=== PATIENT | female | born 1955 | race Caucasian/White ===

== ENCOUNTER 2022-03-11 08:55 | Outpatient (CLI) | payer MEDICARE, BC, SELFPAY | END 2022-03-11 08:56 | disposition home or self-care (01) | PROVIDERS: PCP Surgery; Visit Provider Nurse Practitioner Family | DX: I87.312 Chronic venous hypertension (idiopathic) with ulcer of left lower extremity (principal); I89.0 Lymphedema, not elsewhere classified; L97.322 Non-pressure chronic ulcer of left ankle with fat layer exposed | CPT/HCPCS: 11042; 99212 ==

== ENCOUNTER 2022-03-18 15:00 | Outpatient (CLI) | payer MEDICARE, BC, SELFPAY | END 2022-03-18 15:01 | disposition home or self-care (01) | LOC: WOUND 15:02 | PROVIDERS: PCP Surgery; Visit Provider Nurse Practitioner Family | DX: I87.312 Chronic venous hypertension (idiopathic) with ulcer of left lower extremity (principal); I89.0 Lymphedema, not elsewhere classified; L97.322 Non-pressure chronic ulcer of left ankle with fat layer exposed | CPT/HCPCS: 11042 ==

== ENCOUNTER 2022-03-25 14:59 | Outpatient (CLI) | payer MEDICARE, BC, SELFPAY | END 2022-03-25 15:00 | disposition home or self-care (01) | LOC: WOUND 14:59 | PROVIDERS: PCP Surgery; Visit Provider Nurse Practitioner Family | DX: I87.312 Chronic venous hypertension (idiopathic) with ulcer of left lower extremity (principal); I89.0 Lymphedema, not elsewhere classified; L97.322 Non-pressure chronic ulcer of left ankle with fat layer exposed | CPT/HCPCS: 97597; 97598 ==

== ENCOUNTER 2022-04-08 10:30 | Outpatient (CLI) | payer MEDICARE, BC, SELFPAY | END 2022-04-08 10:31 | disposition home or self-care (01) | LOC: WOUND 10:30 | PROVIDERS: PCP Surgery; Visit Provider Nurse Practitioner Family | DX: I87.312 Chronic venous hypertension (idiopathic) with ulcer of left lower extremity (principal); L97.322 Non-pressure chronic ulcer of left ankle with fat layer exposed | CPT/HCPCS: 97597 ==

== ENCOUNTER 2022-04-26 15:15 | Outpatient (CLI) | payer MEDICARE, BC, SELFPAY | END 2022-04-26 15:16 | disposition home or self-care (01) | LOC: WOUND 15:15 | PROVIDERS: PCP Surgery; Visit Provider Nurse Practitioner Family | DX: I87.312 Chronic venous hypertension (idiopathic) with ulcer of left lower extremity (principal); L97.322 Non-pressure chronic ulcer of left ankle with fat layer exposed; S91.301A Unspecified open wound, right foot, initial encounter | CPT/HCPCS: 99213 ==

== ENCOUNTER 2022-05-12 09:00 | Outpatient (CLI) | payer MEDICARE, BC, SELFPAY | END 2022-05-12 09:01 | disposition home or self-care (01) | LOC: WOUND 08-31 14:36 | PROVIDERS: PCP Surgery; Visit Provider Surgery | DX: I87.312 Chronic venous hypertension (idiopathic) with ulcer of left lower extremity (principal); L97.329 Non-pressure chronic ulcer of left ankle with unspecified severity | CPT/HCPCS: 99212 ==

== ENCOUNTER 2022-12-01 15:16 | Emergency (ER) | payer MEDICARE, BC, SELFPAY ==
[2022-12-01 15:23] VITALS: BP 170/70; PULSE 89; RESP 22; TEMP 36.6; O2SAT 95; BMI 58.2
--- NOTE | 2022-12-01 15:26 | CRLHL7_ITS ---
For Patients: As a result of the Cures Act, medical imaging exams and procedure reports are released immediately into your electronic medical record. You may view this report before your referring provider. If you have questions, please contact your health care provider. INDICATION: Pain. COMPARISON: None. TECHNIQUE: Two views of the right knee. FINDINGS: A small knee joint effusion is present. There is moderate osteoarthritis of the tibial femoral and patellofemoral joints. Bone density is within normal limits. No fracture or osteonecrosis is identified. IMPRESSION: Right knee osteoarthritis. Dictated by Stanton Bajwa MD @ 12/01/2022 4:21:16 PM (Electronically Signed)
--- NOTE | 2022-12-01 15:29 | ED_ITS ---
HPI - General Adult General Chief complaint: Extremity Pain/Injury, Lower Stated complaint: R Knee pain Time Seen by Provider: 12/01/22 15:18 History of Present Illness HPI narrative: Patient is very pleasant 59 year white female who has got right knee pain for several days it has been slightly worsening. Within the last couple of weeks she got a cortisone shot in both knees. She notes she has ?[id number] and ?arthritis in the knees bilaterally. She has had a history of knee effusion in the past and knee swelling. She is significantly elevated in BMI and has significant lymphedema in her legs. She has not had any chills fever, she has had no redness or warmth of the knee. She has had no history of gout or pseudogout. Related Data Home Medications Medication Instructions Recorded Confirmed amitriptyline 25 mg tablet 25 mg PO QPM 12/01/22 12/01/22 apixaban 5 mg tablet (Eliquis) 5 mg PO BID 12/01/22 12/01/22 cetirizine 10 mg tablet 10 mg PO DAILY 12/01/22 12/01/22 chlorthalidone 25 mg tablet 25 mg PO QAM 12/01/22 12/01/22 clobetasol 0.05 % scalp solution topical BID 12/01/22 flecainide 50 mg tablet mg PO 12/01/22 fluconazole 150 mg tablet mg PO 12/01/22 losartan 100 mg tablet 100 mg PO DAILY 12/01/22 12/01/22 metoprolol succinate 25 mg 25 mg PO DAILY 12/01/22 12/01/22 tablet,extended release 24 hr nystatin 100,000 unit/gram topical topical BID 12/01/22 ointment nystatin 100,000 unit/gram topical topical BID PRN 12/01/22 powder omeprazole 40 mg capsule,delayed 40 mg PO DAILY 12/01/22 12/01/22 release rosuvastatin 5 mg tablet 5 mg PO QPM 12/01/22 12/01/22 tolterodine 4 mg capsule,extended 4 mg PO DAILY 12/01/22 12/01/22 release 24 hr torsemide 20 mg tablet mg PO 12/01/22 Previous Rx's Medication Instructions Recorded cephalexin 500 mg capsule 500 mg PO QID #20 caps 12/01/22 hydrocodone 5 mg-acetaminophen 325 1 tab PO Q8H PRN pain #10 tabs 12/01/22 mg tablet Allergies Allergy/AdvReac Type Severity Reaction Status Date / Time Iodinated Contrast Media Allergy Mild Burning Verified 12/01/22 15:30 Sulfa (Sulfonamide Allergy Mild Hives Verified 12/01/22 15:30 Antibiotics) azithromycin AdvReac Mild Nausea Verified 12/01/22 15:30 Review of Systems Status of ROS: Reports: 6 or more systems reviewed and unremarkable except as noted in History and below PFSH PFSH Medical History (Updated 12/01/22 @ 16:36 by Tiara Ji ~ [facility] A-fib ?I48.91 - Unspecified atrial fibrillation (ICD-10) Cellulitis of right knee ?L03.115 - Cellulitis of right lower limb (ICD-10) Obesity ?E66.9 - Obesity, unspecified (ICD-10) Osteoarthritis of patellofemoral joints of both knees ?M17.0 - Bilateral primary osteoarthritis of knee (ICD-10) Surgical History (Updated 12/01/22 @ 16:36 by Tiara Ji ~ [facility]) History of appendectomy ?Z90.49 - Acquired absence of other specified parts of digestive tract (ICD- 10) History of cholecystectomy ?Z90.49 - Acquired absence of other specified parts of digestive tract (ICD- 10) History of incision and drainage (02/06/20) ?Z98.890 - Other specified postprocedural states (ICD-10) Family History (Updated 12/01/22 @ 16:34 by Tiara Ji ~ [facility]) Brother Alcohol dependence Heart disease COPD (chronic obstructive pulmonary disease) Mother Diabetes Social History Smoking Status: Former smoker Do you use any of these nicotine containing products: None Second hand tobacco smoke exposure: No How often do you have a drink containing alcohol: 2-3 times a week AUDIT-C Alcohol total score: 3 Non-prescribed substance use: denies use Exam Narrative: Exam Narrative: Objective: The patient is able to take a few steps with her leg and she uses a cane, she seems to have good balance Her vital signs show slightly elevated blood pressure she is afebrile Lower extremity on the right shows a knee effusion that is mild no tenseness to it no warmth erythema the knee range of motion is fairly full distal CMS intact she has no medial or lateral joint line tenderness. Const: Vital Signs, click to edit/add: Vital Signs - 24 hr 12/01/22 15:23 Temperature 97.8 F Pulse Rate [Pulse Oximeter] 89 Respiratory Rate 22 Blood Pressure [Ri ght Forearm] 170/70 H Pulse Oximetry 95 Oxygen Delivery Me thod Room Air Course Vital Signs Vital signs: Initial Vital Signs Temperature 97.8 F 12/01/22 15:23 Temperature Source Temporal Artery Scan 12/01/22 15:23 Pulse Rate 89 12/01/22 15:23 Respiratory Rate 22 12/01/22 15:23 Blood Pressure 170/70 H 12/01/22 15:23 Blood Pressure Mean 103 12/01/22 15:23 Blood Pressure Position Supine 12/01/22 15:23 Pulse Oximetry 95 12/01/22 15:23 Oxygen Delivery Method Room Air 12/01/22 15:23 Vital Signs Temperature 97.8 F 12/01/22 15:23 Pulse Rate 89 12/01/22 15:23 Respiratory Rate 22 12/01/22 15:23 Blood Pressure 170/70 H 12/01/22 15:23 Pulse Oximetry 95 12/01/22 15:23 Oxygen Delivery Method Room Air 12/01/22 15:23 Temperature 97.8 F 12/01/22 15:23 Pulse Rate 89 12/01/22 15:23 Respiratory Rate 22 12/01/22 15:23 Blood Pressure 170/70 H 12/01/22 15:23 Pulse Oximetry 95 12/01/22 15:23 Oxygen Delivery Method Room Air 12/01/22 15:23 Medical Decision Making MDM Narrative Medical decision making narrative: The patient is a 59 year white female morbidly obese patient with chronic lower extremity stasis and edema changes. She has had significant degenerative joint disease in the knees bilaterally, had cortisone recently. She has had increasing pain over the last few days. She has also had history of a blood clot and she is on Eliquis. She certainly could have a mild effusion in her knee or hemarthrosis. At this point does not appear tense. And I think that her risk for infection would be very high with manipulation or injection. I think be prudent to try a knee immobilizer limited weight-bearing, he hot pack, and pain medication if her lab studies look reassuring. We could also have her follow up with Orthopedics the next 24-48 hours. Addendum: Patient will have an appointment Orthopedics tomorrow. Light activity, icing the knee, recommend [place] as needed for pain or discomfort sparingly 5 mg/325[place] [id number] [place] stepper limited normal platelet count normal her ER profile looks largely unremarkable and her CRP is normal at 1. She certainly could have a small hemarthrosis I think we tried to put on a knee immobilizer but really would not fit her, I think just elevation and icing would be appropriate at this time and follow-up with orthopedics thanks Addendum: The patient also notified Lily our nurse working with the patient that she had some redness on her left ankle, will review nests looks like a cellulitic change, the patient will be placed on Keflex. Will have orthopedic follow-up tomorrow as scheduled. Lab Data Labs: Lab Results 12/01/22 Range/Units 15:54 WBC 11.92 H (4.50-11.00) K/uL RBC 3.53 L (4.00-5.20) m/uL Hgb 10.8 L (12.0-16.0) gm/dL Hct 33.6 (33.0-51.0) % MCV 95 (80-100) fL MCH 31 (26-34) pg MCHC 32 (32-36) gm/dL RDW Coeff of Amy 13.0 (11.5-15.5) % Plt Count 290 (140-440) K/uL Neut % (Auto) 58.8 (42.0-72.0) % Lymph % (Auto) 30.6 (20-44) % [place] % (Auto) 8.2 (0.0-11.0) % Eos % (Auto) 1.3 (0.0-7.0) % Baso % (Auto) 0.3 (0.0-3.0) % Neut # (Auto) 7.00 (1.7-7.0) K/uL Lymph # (Auto) 3.60 H (0.90-2.90) K/uL [place] # (Auto) 1.00 H (0.00-0.90) K/UL Eos # (Auto) 0.20 (0.00-0.50) K/uL Baso # (Auto) 0.00 (0.00-0.30) K/uL Sodium 134 L (135-149) mmol/L Potassium 4.1 (3.6-5.1) mmol/L Chloride 101 (96-114) mmol/L Carbon Dioxide 25 (20-32) mmol/L BUN 19 (7-30) mg/dL Creatinine 0.8 (0.5-1.5) mg/dL Estimated Creat Clear 48.45 Estimated GFR 80 ml/min Glucose 121 H (60-115) mg/dL Calcium 9.0 (8.4-10.6) mg/dL C-Reactive Protein 1.0 (0.5-1.0) mg/dL Discharge Plan Discharge Clinical Impression: Acute pain of right knee, Degenerative joint disease of knee, right Additional Instructions: Follow up appointment is scheduled at the [facility] on 12/02 with a 5:10pm arrival time. If you have any questions or need to reschedule, please call [phone]. [facility] [address] [place] [id number] Light activity limited weight-bearing, ice to the knee, [place] as needed for pain sparingly. Ortho follow-up tomorrow schedule Prescriptions: New hydrocodone-acetaminophen 5-325 mg tablet 1 tab PO Q8H PRN (Reason: pain) Qty: 10 0RF cephalexin 500 mg capsule 500 mg PO QID Qty: 20 0RF No Action torsemide 20 mg tablet PO cetirizine 10 mg tablet 10 mg PO DAILY nystatin 100,000 unit/gram ointment topical BID fluconazole 150 mg tablet PO tolterodine 4 mg capsule,extended release 24hr 4 mg PO DAILY chlorthalidone 25 mg tablet 25 mg PO QAM omeprazole 40 mg capsule,delayed release(DR/EC) 40 mg PO DAILY amitriptyline 25 mg tablet 25 mg PO QPM flecainide 50 mg tablet PO metoprolol succinate 25 mg tablet extended release 24 hr 25 mg PO DAILY nystatin 100,000 unit/gram powder topical BID PRN clobetasol 0.05 % solution topical BID losartan 100 mg tablet 100 mg PO DAILY rosuvastatin 5 mg tablet 5 mg PO QPM Eliquis 5 mg tablet 5 mg PO BID Follow Up/Referrals: Bart Lara MD [Primary Care Provider] -
[2022-12-01] MEDS: MORPHINE 10 MG/ML inj 7.5 MG IM (15:53)
[2022-12-01 16:12] LABS: Basophils Percent Auto 0.3 % (0.0-3.0); Eosinophils Percent Auto 1.3 % (0.0-7.0); Hematocrit 33.6 % (33.0-51.0); Hemoglobin* 10.8 gm/dL (12.0-16.0); Immature Granulocytes Pct Auto 0.8 %; Lymphocytes Percent Auto 30.6 % (20-44); Mean Corpuscular HGB Conc 32 gm/dL (32-36); Mean Corpuscular Hemoglobin 31 pg (26-34); Mean Corpuscular Volume 95 fL (80-100); Monocytes Percent Auto 8.2 % (0.0-11.0); Neutrophils Percent Auto 58.8 % (42.0-72.0); Platelet Count* 290 K/uL (140-440); Red Blood Count 3.53 m/uL (4.00-5.20); White Blood Count* 11.92 K/uL (4.50-11.00)
[2022-12-01 16:18] LABS: Slide Review Reflex No
[2022-12-01 16:23] LABS: Chloride* 101 mmol/L (96-114)
[2022-12-01 16:24] LABS: Potassium* 4.1 mmol/L (3.6-5.1); Sodium* 134 mmol/L (135-149)
[2022-12-01 16:26] LABS: Creatinine* 0.8 mg/dL (0.5-1.5); Est. Creatinine Clearance* 48.45; Estimated Glomerular Filt Rate 80 ml/min
[2022-12-01 16:27] LABS: Blood Urea Nitrogen* 19 mg/dL (7-30); Carbon Dioxide* 25 mmol/L (20-32); Glucose* 121 mg/dL (60-115)
--- NOTE | 2022-12-01 18:19 | ED.NURSE ---
Patient mentions reddened, itchy area on posterior left calk. Area examined and MD notified of possible cellulitis.
--- NOTE | 2022-12-01 18:32 | ED.NURSE ---
Unable to apply knee immobilizer due to patient habitus and limited stock of immobilizers.
== END 2022-12-01 18:25 | disposition home or self-care (01) ==
LOC: ED 16:43
PROVIDERS: Emergency Provider Family Medicine; PCP Surgery
DX: M17.11 Unilateral primary osteoarthritis, right knee (principal)
CPT/HCPCS: 36415; 73560; 80048; 85025; 86140; 96372; 99283; 99284; J2270

== ENCOUNTER 2023-04-13 11:14 | Outpatient (RCR) | payer MEDICARE, BC, SELFPAY ==
--- NOTE | 2023-04-18 15:45 | OT.HSE ---
OT Home Safety Eval OT Home Safety Eval Start: 04/13/23 20:03 Freq: Status: Active Protocol: Document 04/13/23 20:04 SMW (Rec: 04/13/23 20:05 SMW Laptop) E-signed By Carline Martins OT OT Outpatient Evaluation Details Type Type Eval Complexity Low Insurance Information Insurance Information Insurance Information Medicare B OT Home Safety History/Precautions Medical/Functional History Medical History Reviewed Yes Prior Level of Function/Mobility Patient uses 4WW for mobility both inside and in community. Will utilize w/c if longer distances. Able to complete ADLs independently. Spouse assists with IADLS. Current Condition Treatment Diagnosis home safety evaluation pre TKA . Social History Type of Dwelling Rambler Home Number of Floors (Floors) 1 Number of Stairs to Enter (Stairs) 4 Lives With: Spouse Physical Barriers in Home Environment Level, No Step,Railing Ascend Right,Railing Ascend Left Employment Status Retired Hobbies quilting Oriented Patient Orientation Person,Place,Time,Situation Upper Extremity Function Upper Extremity Function WNL OT Home Safety Evaluation Entrance Garage Entrance Description Railing Ascend Right,Railing Ascend Left Foyer Entrance Hard Floor Entrance Comments very small steps. Bathroom Main Level Toilet Accessibility High Rise Toilet Level of Assist To/From Toilet Independent Level of Assist For Clothing Management Independent Level of Assist For Pericare Independent Tub/Shower Accessibility Shower Only,Sliding Glass Doors,Front Vertical Grab Bar, Side Wall Horizontal Bar Tub Transfer Approach Step Into w/Knee Flexion Level of Assist To/From Tub/Shower Independent Sink Accessible Yes Bathroom Comments Recommend patient's spouse remove shower doors and put up tension natalio with curtain. Bedroom Bedroom Accessibility Hard Floor,Double Bed Bedroom Comments No issues getting in and out of bed Services Used/Recommended Services Used Comments none Recommendations Specifications The patient was seen for a home safety assessment prior to her upcoming total knee replacement. The patient lives with her spouse in a rambler style home. He is a willing and able caregiver. The home is somewhat cluttered but easily to navigate. The floors are all hardwoods. The patient uses a 4WW and is able to navigate to all necessary rooms. The patient had a particular concern with her bathroom/shower. Walk in shower has doors, 4 inch lip and grab bars effectively placed for safety. Patient was able to access shower independently. For more room, recommend the patient's spouse remove shower doors and put up tension natalio with curtain. The patient currently moving well with her 4WW. Anticipate that she will do well post op. She appears motivated and eager to regain more mobility and less pain. Treatment Minutes Untimed Treatment Minutes 10 Timed Treatment Minutes 35 Total Timed & Untimed Treatment Minutes 45 I Certify That: I Certify That: Therapy Services Provided, Therapy Plan Established, Therapy Plan Reviewed Home Safety Eval Billing Units Billing Units Self Care/Home Management 2
== END 2023-08-11 23:59 | disposition home or self-care (01) ==
PROVIDERS: PCP Surgery; Visit Provider Orthopaedic Surgery
DX: M17.11 Unilateral primary osteoarthritis, right knee (principal); Z51.89 Encounter for other specified aftercare
CPT/HCPCS: 97165; 97535

== ENCOUNTER 2023-05-31 08:54 | Day surgery (SDC) | payer MEDICARE, BC, SELFPAY ==
[2023-05-31] VITALS (27 sets, daily range): BP systolic 94–165; BP diastolic 6–76; PULSE 60–70; RESP 16–20; TEMP 35.8–36.6; O2SAT 91–99; BMI 57.9
[2023-05-31] MEDS: ACETAMINOPHEN 500 MG TABLET 1000 MG PO ×2 (09:53→19:19)
[2023-05-31] MEDS: CELECOXIB 200 MG CAPSULE PO (09:53)
[2023-05-31] MEDS: OXYCODONE (CR) 10 MG TAB.ER.12H PO (09:53)
[2023-05-31] MEDS: LACTATED RINGERS 1000 ML 1,000 ML 100 ML IV (10:00)
[2023-05-31] MEDS: SODIUM CHLORIDE 0.9 % (FLUSH) 10 ML SYRINGE IVF (10:00)
[2023-05-31] MEDS: MIDAZOLAM HCL 1 MG/ML inj IVP (12:28)
[2023-05-31] MEDS: fentaNYL 100 MCG/2 ML inj IVP (12:28)
--- NOTE | 2023-05-31 12:49 | SUR.PREOP ---
TIME?OUT:?1228 PT/RN/MDA?VERIFICATION?OF?SURGICAL?SITE,?PROCEDURE,?AND?CONSENT OBTAINED?PRIOR?TO?INVASIVE?PROCEDURE.
--- NOTE | 2023-05-31 12:58 | W.PM.NB ---
Nerve Block Nerve Block Time Seen by Provider: 12:34 Date Seen: 05/31/23 Type of block requested by surgeon for post-operative analgesia: adductor canal Side: right Time out performed: Yes Verification of patient name: Yes Verification of date of : Yes Site marking: site marked Name of person performing procedure: Aureliano Continuous monitoring Was continuous monitoring of O2 sat, B/P, equipment monitor phototypesetting, recorded every 15 minutes?: Yes Procedure Checklist: sterile prep, needles and gloves Ultrasound guided. Images saved: Yes Medications given in 5ml increments after negative aspiration: Ropivicaine %: 0.5 mL: 20 Needle gauge: 20 Decadron (mg): 10 Precedex (mcg): 25 Patient tolerated procedure well: Yes Additional comments: Needle noted adjacent to nerve Block Charges Block Charge (with Pro Fee): Femoral Nerve Use of Ultrasound Machine for Block: Yes- US Guidance/pain block
--- NOTE | 2023-05-31 12:59 | W.PM.NB ---
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
--- NOTE | 2023-05-31 12:59 | W.ANESCHARGE ---
Anesthesia Charges Start Date/Time Anesthesia Start Date: 05/31/23 Anesthesia Start Time: 13:16 Stop Date/Time Anesthesia Stop Date: 05/31/23 Anesthesia Stop Time: 16:21
[2023-05-31] MEDS: CEFAZOLIN 2 GM INJ IVP (13:40)
--- NOTE | 2023-05-31 14:19 | SUR.OPER ---
LARGE DILLON, OSTEOTOME TRAY AND ATT FEM/STEM EXTRAS WERE CONFIRMED WITH STERILE PROCESSING AND WERE APPROVED TO USE DURING PROCEDURE.
--- NOTE | 2023-05-31 15:18 | CRLHL7_ITS ---
For Patients: As a result of the Century Cures Act, medical imaging exams and procedure reports are released immediately into your electronic medical record. You may view this report before your referring provider. If you have questions, please contact your health care provider. INDICATION: Follow up after knee arthroplasty. TECHNIQUE: Two portable postoperative images of the right knee. FINDINGS: Right knee arthroplasty. Patellar resurfacing. The components are adequately aligned and well seated. Air within the soft tissues and joint space related to the surgery. IMPRESSION: Right total knee arthroplasty. The components are adequately aligned and well seated. Dictated by Kenan Dickson MD @ 06/01/2023 11:26:47 AM (Electronically Signed)
--- NOTE | 2023-05-31 15:20 | P.ORPRC_ITS ---
Procedure Note Date of procedure: 05/31/23 Procedure: PREOPERATIVE DIAGNOSIS: Bilateral knee osteoarthritis POSTOPERATIVE DIAGNOSIS: Bilateral knee osteoarthritis NAME OF OPERATION: Right total knee arthroplasty, left knee steroid injection SURGEON: Bo Grubbs MD GROUNDS MAINTENANCE MANAGER: DAVID Mendoza ANESTHESIA: Spinal ESTIMATED BLOOD LOSS: 50 mL COMPLICATIONS: None SPECIMENS: None DRAINS: None PREOPERATIVE ANTIBIOTICS: Ancef 3 grams, antibiotic impregnated cement IMPLANTS: 1. J&J Attune revision CRS #6 posterior stabilized femur, with a 14 mm x 50 mm cemented stem 2. # 5 fixed-bearing revision CRS tibia for, with a 14 mm x 50 mm cemented stem 3. #6 posterior stabilized, 5 mm fixed-bearing polyethylene 4. 38 patella INDICATIONS: The patient is a 68-year-old with a longstanding history of severe, unrelenting right knee pain secondary to end-stage (grade IV) right knee osteoarthritis. Despite appropriate nonoperative management, including activity modification, anti-inflammatories, [id number] pain medication, bracing, physical therapy, and injections they continue to have pain and disability. Operative intervention was offered. The risks, benefits and expected outcomes were discussed in detail. These included but were not limited to: Infection, bleeding, injury to blood vessel or nerve, venous thromboembolism. All questions were answered to their satisfaction. Use of an mental health assistant was necessary throughout the case for patient positioning and safety, soft tissue retraction, and closure. A modifier 22 should be added to this case. The patient's weight of 158 kg with a BMI of 58 kg/meter squared and a 50 mm layer of adipose over the extensor mechanism made the dissection and exposure difficult. These factors more than doubled the time typically required to complete the case. PROCEDURE: Spinal anesthesia was administered. The patient was placed supine on the operating table. The mental health assistant made sure the patient was positioned appropriately. The lower extremity was prepped and draped in the usual sterile fashion. The limb was exsanguinated with the Caleb bandage. The pneumatic tourniquet was inflated to 300 mmHg. A standard anterior incision was made with the knee in flexion. Subcutaneous dissection was sharply taken through fascial layer #1. Full-thickness medial and lateral flaps were elevated. The mental health assistant retracted the soft tissues and protected them throughout the case. A standard medial parapatellar approach was made. The patella was everted. The infrapatellar fat pad was preserved. The menisci and cruciate ligaments were sharply d?brided. Marginal osteophytes were d?brided with the rongeur. The drill was used to penetrate the femoral canal. The canal was aspirated and irrigated with pulse lavage. The intramedullary femoral guide was placed for a 5-degree valgus cut, removing 10 mm off the distal femur. The saw was used to make the cut. Whitesides line and the trans epicondylar axis were marked. The femoral sizing guide was pinned onto the distal femur. Three degrees of exte rnal rotation nicely parallels the transepicondylar axis. Pins were placed for posterior referencing. The four-in-one cutting guide was pinned onto the distal femur. The anterior, posterior, and chamfer cuts were made. The mental health assistant protected the collateral ligaments. The trial femur was placed. The box cuts were made. The drill was used x2. The boxed trial was placed and was an excellent fit. Attention was then turned to the proximal tibia. The extramedullary tibial guide was placed for a neutral varus/valgus cut with 5 degrees of posterior slope, removing 2 mm based off the medial tibial surface. The mental health assistant protected the collateral ligaments and the neurovascular bundle. The saw was used to make the cut. Trial components were placed. The knee was nicely balanced in both flexion and extension. The trial components were removed. The tray was placed in appropriate rotation, parallel to our tibial cutting pins. It was pinned by the mental health assistant and the drill x2 was used. The stemmed tibial trial was placed. The punch was used. The tray was removed. The punch was used again. Attention was then turned to the patella. Cheesh-Na patellar thickness was 21.5 mm. The lobster claw resection guide was used with the 7.5 mm tristan. The saw was used to make the cut. Drill holes were made by the mental health assistant. The trial was placed and was an excellent fit. Cancellous surfaces were irrigated with pulse lavage and thoroughly dried by the mental health assistant. We cemented the tibial component, then the femoral component. We impacted the 5 mm polyethylene onto the tibial tray. The knee was brought into full extension. We then cemented the patellar component. Excessive cement was removed. The cement was allowed to harden. The knee was taken through a range of motion and was found to be nicely balanced in both flexion and extension. The patella tracks centrally. The mental health assistant did a three minute dilute Betadine solution soak. The mental health assistant irrigated the wound with 3 liters of normal saline via pulse lavage. The mental health assistant reapproximated the extensor mechanism with #1 Vicryl in an interrupted [id number] fashion. The mental health assistant then ran the extensor mechanism with a #1 PDO Stratafix. The mental health assistant closed the subcutaneous tissues with a 3-0 Stratafix and the skin with a running 3-0 Stratafix in a subcuticular fashion. Glue was used to seal the skin. The mental health assistant placed a dry dressing, DANIELA stocking, and Polar Care. The left knee was sterilely prepped and was injected with 4 mL 0.25% Marcaine without epinephrine, 40 mg Depo-Medrol. Sponge and needle counts were correct x2. The patient tolerated the procedure well. There were no apparent complications. They were carefully transferred to the hospital bed and taken to the postanesthesia care unit in satisfactory condition. PLAN: The patient will be mobilized with physical therapy. Aspirin will be used for DVT prophylaxis. They will be discharged to [home once medically appropriate.
[2023-05-31] MEDS: BUPIVACAINE 0.25% 30 ML 4 ML INJECTION (16:11)
[2023-05-31] MEDS: methylPREDNISolone acetate 80 MG/ML INJ 40 MG INTRA-ARTI (16:11)
--- NOTE | 2023-05-31 16:27 | W.ANESCHARGE ---
Anesthesia Charges Start Date/Time Anesthesia Start Date: 05/31/23 Anesthesia Start Time: 13:16 Stop Date/Time Anesthesia Stop Date: 05/31/23 Anesthesia Stop Time: 16:21
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
[2023-05-31] MEDS: HYDROmorphone 0.5 mg/0.5 ml inj IVP (19:38)
[2023-05-31] MEDS: SENNOSIDES 1 TAB TABLET 2 TAB PO (20:48)
[2023-05-31] MEDS: OXYCODONE 5 MG TABLET PO (20:48)
[2023-05-31] MEDS: ASPIRIN 81 MG TABLET EC PO (20:49)
[2023-05-31] MEDS: FLECAINIDE ACETATE 50 MG TABLET 75 MG PO (20:55)
--- NOTE | 2023-05-31 22:54 | PC.NURSE ---
Shift Note: Pt friendly and cooperative. Difficulty with pain control, she rates discomfort 5-6/10. PRN Dilaudid given IVP x2 and pt transitioned to PO Oxycodone. VS WNL and pt using CPAP at HS. Advanced to regular diet without difficulty. Surgical dressing to right knee C,D,&I with cryocuff in place. Up to BR with assist x2 with walker and GB. Pt stated she was very afraid to fall and needed encouragement to ambulate. She is steady on her feet. Plans to discharge home with her Scott tomorrow.
[2023-06-01] MEDS: ACETAMINOPHEN 500 MG TABLET 1000 MG PO ×2 (00:59→05:25)
[2023-06-01 03:10] VITALS: BP 137/87; PULSE 67; RESP 16; TEMP 36.6; O2SAT 97
[2023-06-01] MEDS: OXYCODONE 5 MG TABLET PO ×3 (03:25→09:01)
[2023-06-01] MEDS: MELATONIN 3 MG TABLET PO (03:26)
[2023-06-01 06:41] LABS: Basophils Percent Auto 0.1 % (0.0-3.0); Hematocrit 33.4 % (33.0-51.0); Hemoglobin* 10.6 gm/dL (12.0-16.0); Immature Granulocytes Pct Auto 0.3 %; Lymphocytes Percent Auto 18.7 % (20-44); Mean Corpuscular HGB Conc 32 gm/dL (32-36); Mean Corpuscular Hemoglobin 31 pg (26-34); Mean Corpuscular Volume 98 fL (80-100); Monocytes Percent Auto 5.8 % (0.0-11.0); Neutrophils Percent Auto 75.1 % (42.0-72.0); Platelet Count* 310 K/uL (140-440); RDW Coefficient of Variation % 12.8 % (11.5-15.5); White Blood Count* 14.35 K/uL (4.50-11.00)
[2023-06-01 06:49] LABS: Potassium* 4.1 mmol/L (3.6-5.1); Sodium* 136 mmol/L (135-149)
[2023-06-01 06:52] LABS: Blood Urea Nitrogen* 28 mg/dL (7-30); Creatinine* 1.1 mg/dL (0.5-1.5); Est. Creatinine Clearance* 43.43; Estimated Glomerular Filt Rate 54 ml/min
[2023-06-01 06:55] LABS: Slide Review Reflex No
[2023-06-01 07:10] LABS: INR 1.05 (0.91-1.10); Prothrombin Time 14.4 Seconds
--- NOTE | 2023-06-01 07:35 | PC.NURSE ---
Pt alert and oriented x3. Afebrile. Pt reports 8/10 pain in right knee, pain managed with scheduled and prn medications and cryo cuff. Pt?s right knee dressing is CDI. ?Pt denies?chest pain, and N/V. SOB is noted with exertion. Pt is SBA with walker and gait belt. Pt slept intermittently throughout night. ?
[2023-06-01 07:59] VITALS: BP 141/64; PULSE 64; RESP 16; TEMP 36.2; O2SAT 95
[2023-06-01] MEDS: CHLORTHALIDONE 25 MG TABLET PO (09:00)
[2023-06-01] MEDS: FLECAINIDE ACETATE 50 MG TABLET 75 MG PO (09:00)
[2023-06-01] MEDS: METOPROLOL SUCCINATE (XL) 25 MG TAB PO (09:00)
[2023-06-01] MEDS: APIXABAN 5 MG TABLET PO (09:00)
[2023-06-01] MEDS: SENNOSIDES 1 TAB TABLET 2 TAB PO (09:01)
[2023-06-01] MEDS: LOSARTAN POTASSIUM 50 MG TABLET 100 MG PO (09:01)
--- NOTE | 2023-06-01 09:04 | PM.ORPN ---
Subjective Subjective Time Seen by Provider: 07:15 Date Seen: 06/01/23 Principal diagnosis: Status post right knee replacement Interval history: The patient is comfortable in her hospital bed this morning. She has had pain postoperatively. She will discharge today to home with her if she meets discharge criteria. She drifts off to sleep when speaking with her this morning. She easily arouses and converses. She denies chest pain, shortness of breath , lightheadedness. Ortho Exam Narrative Exam Narrative: Alert and oriented x3. Patient is in no acute distress. Converses without labored breathing. Hearing is grossly intact. Ambulates with a Normal gait. Examination of the right knee shows the dressing is intact. No erythema or warmth or sign of infection. Bilateral calves are soft and nontender. Good quad strength 5/5. CMS is intact right lower extremity. Const Vital Signs, click to edit/add: Vital Signs - 24 hr 05/31/23 09:22 05/31/23 12:28 05/31/23 12:30 Temperature 97.9 F Pulse Rate 70 66 65 Pulse Rate [Left Pulse Oximeter] Respiratory Rate 16 16 16 Blood Pressure 165/66 H 115/46 L 122/52 L Blood Pressure [Right Arm] Pulse Oximetry 96 99 98 Oxygen Delivery Method Room Air Nasal Cannula Nasal Cannula Oxygen Flow Rate 2 2 05/31/23 12:35 05/31/23 12:40 05/31/23 12:45 Temperature Pulse Rate 64 64 63 Pulse Rate [Left Pulse Oximeter] Respiratory Rate 16 16 16 Blood Pressure 116/45 L 110/49 L 115/49 L Blood Pressure [Right Arm] Pulse Oximetry 98 98 97 Oxygen Delivery Method Nasal Cannula Nasal Cannula Nasal Cannula Oxygen Flow Rate 2 2 2 05/31/23 16:18 05/31/23 16:22 05/31/23 16:27 Temperature 97.8 F Pulse Rate 64 60 62 Pulse Rate [Left Pulse Oximeter] Respiratory Rate 18 18 18 Blood Pressure 144/69 H 144/6 H 138/76 Blood Pressure [Right Arm] Pulse Oximetry 96 94 96 Oxygen Delivery Method Room Air Room Air Room Air Oxygen Flow Rate 05/31/23 16:32 05/31/23 16:37 05/31/23 16:40 Temperature Pulse Rate 63 66 62 Pulse Rate [Left Pulse Oximeter] Respiratory Rate 16 18 18 Blood Pressure 137/75 146/68 H 140/72 H Blood Pressure [Right Arm] Pulse Oximetry 94 94 94 Oxygen Delivery Method Room Air Room Air Room Air Oxygen Flow Rate 05/31/23 16:45 05/31/23 16:47 05/31/23 17:00 Temperature 97.8 F 96.6 F L Pulse Rate 64 64 Pulse Rate [Left Pulse Oximeter] 61 Respiratory Rate 18 18 20 Blood Pressure 141/66 H 144/67 H Blood Pressure [Right Arm] 112/47 L Pulse Oximetry 93 93 93 Oxygen Delivery Method Room Air Room Air Room Air Oxygen Flow Rate 05/31/23 17:15 05/31/23 17:26 05/31/23 17:30 Temperature 97.4 F L 96.4 F L Pulse Rate 63 Pulse Rate [Left Pulse Oximeter] 64 64 Respiratory Rate 20 20 20 Blood Pressure Blood Pressure [Right Arm] 124/55 L 106/49 L 112/65 Pulse Oximetry 94 94 Oxygen Delivery Method Room Air Room Air Room Air Oxygen Flow Rate 05/31/23 17:45 05/31/23 18:00 05/31/23 18:30 Temperature 97 F L 96.8 F L Pulse Rate Pulse Rate [Left Pulse Oximeter] 63 62 68 Respiratory Rate 20 20 20 Blood Pressure Blood Pressure [Right Arm] 118/66 104/51 L 100/41 L Pulse Oximetry 93 94 93 Oxygen Delivery Method Room Air Room Air Room Air Oxygen Flow Rate 05/31/23 19:00 05/31/23 20:00 05/31/23 21:00 Temperature Pulse Rate Pulse Rate [Left Pulse Oximeter] 67 68 66 Respiratory Rate 20 20 20 Blood Pressure Blood Pressure [Right Arm] 94/74 118/59 L 118/59 L Pulse Oximetry 94 91 93 Oxygen Delivery Method Room Air Room Air Room Air Oxygen Flow Rate 05/31/23 22:00 05/31/23 23:00 05/31/23 23:40 Temperature 97.4 F L 97.9 F Pulse Rate Pulse Rate [Left Pulse Oximeter] 66 69 Respiratory Rate 20 18 Blood Pressure Blood Pressure [Right Arm] 121/58 L 133/60 Pulse Oximetry 91 94 95 Oxygen Delivery Method Room Air Room Air Oxygen Flow Rate 05/31/23 23:40 06/01/23 03:10 06/01/23 07:59 Temperature 97.8 F Pulse Rate Pulse Rate [Left Pulse Oximeter] 68 67 Respiratory Rate 16 16 Blood Pressure Blood Pressure [Right Arm] 137/87 Pulse Oximetry 97 95 Oxygen Delivery Method Room Air Oxygen Flow Rate 06/01/23 07:59 Temperature 97.2 F L Pulse Rate Pulse Rate [Left Pulse Oximeter] 64 Respiratory Rate 16 Blood Pressure Blood Pressure [Right Arm] 141/64 H Pulse Oximetry 95 Oxygen Delivery Method Room Air Oxygen Flow Rate Assessment and Plan Assessment and plan (1) Status post right knee replacement: Problem details: - 05/31/23Romie Status: Acute Assessment and Plan: Plan for discharge is today to home if they meet discharge criteria. DVT prophylaxis includes Eliquis, Yordan bandages on lower extremities x1 month may remove for 1 hr per day, frequent ambulation Remove dressing in 1 week. Observe wound and phone Orthopedics with any questions or concerns Return to clinic in 1 week for a wound check Return to clinic in 6 weeks with surgeon Minimize narcotic use. Wean off and discontinue soon as possible. Activities as tolerated. No strenuous activity. Outpatient physical therapy as scheduled. Ice and elevate the operative extremity. No restriction on ice. (2) CARLOS on CPAP: Problem details: - continue CPAP during stay Status: Acute
[2023-06-01] MEDS: AMOXICILLIN 250 MG CAPSULE 1000 MG PO (10:41)
[2023-06-01] MEDS: TOLTERODINE TARTRATE 2 MG CAP.ER.24H 4 MG PO (10:42)
== END 2023-06-01 11:08 | disposition home or self-care (01) ==
LOC: OR 08:55 → MEDSURG 08:58
PROVIDERS: PCP Surgery; Visit Provider Orthopaedic Surgery
PROC: (CPT 27447; principal; 2023-05-31 10:15)
PROC: (CPT 27447; 2023-05-31 10:15)
DX: M17.0 Bilateral primary osteoarthritis of knee (principal); G89.18 Other acute postprocedural pain; I48.91 Unspecified atrial fibrillation; Z79.01 Long term (current) use of anticoagulants; Z86.718 Personal history of other venous thrombosis and embolism; G47.33 Obstructive sleep apnea (adult) (pediatric); I10 Essential (primary) hypertension; K21.9 Gastro-esophageal reflux disease without esophagitis; E66.9 Obesity, unspecified
CPT/HCPCS: 27447; 20610; 01402; 36415; 64447; 64454; 73560; 76942; 82565; 84132; 84295; 84520; 85025; 85610; 97110; 97116; 97162; 97165; A9270; C1776; J0665; J0690; J1040; J1100; J1170; J2250; J2405; J2704; J2795; J3010; J7120

== ENCOUNTER 2023-06-25 15:00 | Observation (INO) | payer MEDICARE, BC, SELFPAY ==
[2023-06-25 15:09] VITALS: BP 103/53; PULSE 80; RESP 20; TEMP 36.3; O2SAT 94; BMI 49.9
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
--- NOTE | 2023-06-25 15:27 | CRLHL7_ITS ---
For Patients: As a result of the Cures Act, medical imaging exams and procedure reports are released immediately into your electronic medical record. You may view this report before your referring provider. If you have questions, please contact your health care provider. Indication: Knee pain, heard a pop, history of total knee arthroplasty Comparison: Two-view knee May 31, 2023 Technique: Standing AP, lateral, and sunrise views of the right knee were obtained Findings: There is no displaced fracture or dislocation. There is again seen total knee arthroplasty without evidence of hardware failure. There is interval development of severe prepatellar and suprapatellar soft tissue swelling. Resolution of previously seen subcutaneous emphysema. Impression: Status post knee arthroplasty without obvious hardware loosening or displaced fracture. Marked prepatellar and suprapatellar soft tissue swelling new from comparison. Dictated by Colby Diaz MD @ 06/25/2023 4:12:34 PM (Electronically Signed)
--- OUTSIDE RECORDS SUMMARY | 2023-06-25 15:59 | XMS_ITS | Continuity of Care Document ---
Author Name Unknown Organization [facility] Address [address] [address] [place] [address] Phone Care Team Providers Care Barrel Repairer Name Role Phone Cody Randle MD Unavailable Unavailable Procedures Procedure Date Ugi Endo; Dx W/wo Collec Specm 16 Advance Directives Directive Yes / No Effective Date File Name No Information Encounters Encounter Description Practice Location Reason(s) For Visit Diagnoses Date Provider Providers Copied on Encounter [facility] [place], [address] [address], [place], [place], [id number], [place] tel:[phone] [facility] No Information Jer Ross. [address] [facility], [facility] [address], [place], [place], [id number], [place]. tel:[phone] Referring Provider: Nguyễn Abbott MD L, [address] [place] [address], [place], [address]. tel:[phone] Family History Family Member Type Diagnosis Age At Onset No Information Payers Payer name Insurance type Covered democrat ID Authoriza tion(s) [employer] [place] BL [id number] Social History Type Description Quantity Date Captured Comments Sex Female Smoking Status No Information Chief Complaint And Reason For Visit No Information Reason For Referral Reason For Referral No Information History Of Present Illness Encounter Date Complaint History Of Prese nt Illness No Information Functional Status Date Functional Assessmen t No Information Instructions Date Instruction Additional Infor mation No Information Assessments Type Assessment Date No Information Patient Care Teams Name Effective Dates (start - stop) Status Members No Information
--- OUTSIDE RECORDS SUMMARY | 2023-06-25 15:59 | XMS_ITS | Continuity of Care Document ---
Author Name Unknown Organization [facility] Address [address] [address] [place] [address] Phone Care Team Providers Care Scaffold Setter Name Role Phone Cody Randle MD Unavailable Unavailable Procedures Procedure Date Ugi Endo; Dx W/wo Collec Specm 16 Advance Directives Directive Yes / No Effective Date File Name No Information Encounters Encounter Description Practice Location Reason(s) For Visit Diagnoses Date Provider Providers Copied on Encounter [facility] [place], [address] [address], [place], [place], [id number], [place] tel:[phone] [facility] No Information Jer Ross. [address] [facility], [facility] [address], [place], [place], [id number], [place]. tel:[phone] Referring Provider: Nguyễn Abbott MD L, [address] [place] [address], [place], [address]. tel:[phone] Family History Family Member Type Diagnosis Age At Onset No Information Payers Payer name Insurance type Covered republican ID Authoriza tion(s) [employer] [place] [id number] Social History Type Description Quantity Date Captured [...]
[2023-06-25] MEDS: OXYCODONE 5 MG TABLET 10 MG PO (16:00)
[2023-06-25 16:27] LABS: Lactate* 1.3 mmol/L (0.5-1.9)
[2023-06-25 16:33] LABS: Basophils Percent Auto 0.4 % (0.0-3.0); Hematocrit 35.4 % (33.0-51.0); Hemoglobin* 11.1 gm/dL (12.0-16.0); Lymphocytes Percent Auto 24.9 % (20-44); Mean Corpuscular HGB Conc 31 gm/dL (32-36); Mean Corpuscular Hemoglobin 30 pg (26-34); Mean Corpuscular Volume 97 fL (80-100); Monocytes Percent Auto 11.5 % (0.0-11.0); Neutrophils Percent Auto 61.2 % (42.0-72.0); Platelet Count* 363 K/uL (140-440); Red Blood Count 3.66 m/uL (4.00-5.20); White Blood Count* 12.45 K/uL (4.50-11.00)
--- OUTSIDE RECORDS SUMMARY | 2023-06-25 16:34 | XMS_ITS | Continuity of Care Document ---
Author Name Unknown Organization [facility] Address [address] [address] [place] [address] Phone Care Team Providers Care Shaping Machine Tender Name Role Phone Cody Randle MD Unavailable Unavailable Procedures Procedure Date Ugi Endo; Dx W/wo Collec Specm 16 Advance Directives Directive Yes / No Effective Date File Name No Information Encounters Encounter Description Practice Location Reason(s) For Visit Diagnoses Date Provider Providers Copied on Encounter [facility] [place], [address] [address], [place], [place], [id number], [place] tel:[phone] [facility] No Information Jer Ross. [address] [facility], [facility] [address], [place], [place], [id number], [place]. tel:[phone] Referring Provider: Nguyễn Abbott MD L, [address] [place] [address], [place], [address]. tel:[phone] Family History Family Member Type Diagnosis Age At Onset No Information Payers Payer name Insurance type Covered libertarian ID Authoriza tion(s) [employer] [place] BL [id number] Social History Type Description Quantity Date Captured [...]
[2023-06-25 16:35] LABS: Slide Review Reflex No
[2023-06-25 16:51] LABS: C Reactive Protein* 1.7 mg/dL (0.5-1.0)
[2023-06-25 18:12] VITALS: BP 137/59; PULSE 74; RESP 16; O2SAT 97
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
[2023-06-25 18:30] VITALS: BP 133/57; PULSE 72; RESP 20; O2SAT 95; BMI 57.1
--- OUTSIDE RECORDS SUMMARY | 2023-06-25 18:57 | XMS_ITS | Continuity of Care Document ---
Author Name Unknown Organization [facility] Address [address] [address] [place] [address] Phone Care Team Providers Care Core Inserter Name Role Phone Cody Randle MD Unavailable Unavailable Procedures Procedure Date Ugi Endo; Dx W/wo Collec Specm 16 Advance Directives Directive Yes / No Effective Date File Name No Information Encounters Encounter Description Practice Location Reason(s) For Visit Diagnoses Date Provider Providers Copied on Encounter [facility], [address] [address], [place], [place], [id number], [place] tel:[phone] [facility] No Information Jer Ross. [address] [facility], [facility] [address], [place], [place], [id number], [place]. tel:[phone] Referring Provider: Nguyễn Abbott MD L, [address] [place] [address], [place], [address]. tel:[phone] Family History Family Member Type Diagnosis Age At Onset No Information Payers Payer name Insurance type Covered green party ID Authoriza tion(s) [employer] [place] BL [id number] Social History Type Description Quantity Date Captured [...]
[2023-06-25] MEDS: ACETAMINOPHEN 500 MG TABLET 1000 MG PO (19:57)
[2023-06-25] MEDS: FLECAINIDE ACETATE 50 MG TABLET 75 MG PO (20:39)
[2023-06-25] MEDS: SENNOSIDES 1 TAB TABLET PO (20:40)
[2023-06-25] MEDS: SODIUM CHLORIDE 0.9 % (FLUSH) 10 ML SYRINGE 5 ML IVF (20:40)
[2023-06-25] MEDS: APIXABAN 5 MG TABLET PO (20:41)
[2023-06-25] MEDS: OXYCODONE 5 MG TABLET PO (21:59)
[2023-06-25] MEDS: ROSUVASTATIN CALCIUM 10 MG TABLET 5 MG PO (22:16)
--- NOTE | 2023-06-25 22:37 | PC.NURSE ---
Admit [id number]- Patient arrives to floor at approximately 1830. She is reluctant to move and needs a lot of encouragement- I don't want to eat or drink, because then I'll have to get up to use the bathroom. Ice applied to knee. PRN pain medications also administered- see eMAR. She did ambulate from bed to bathroom, moved fluidly and well. Assist of 1-2, walker, gait belt. She stated it went better than she anticipated. Strategies for movement were discussed with patient beforehand.
[2023-06-25 23:45] VITALS: BP 127/55; PULSE 67; RESP 20; TEMP 36.6; O2SAT 92
[2023-06-26 02:00] VITALS: BP 149/60; PULSE 66; RESP 16; TEMP 36.6; O2SAT 94
[2023-06-26] MEDS: OXYCODONE 5 MG TABLET PO ×4 (02:00→15:09)
[2023-06-26] MEDS: ACETAMINOPHEN 500 MG TABLET 1000 MG PO ×3 (02:00→15:09)
--- NOTE | 2023-06-26 06:39 | PC.NURSE ---
End of shift nursing note, care [id number]: Pt alert and oriented, very drowsy at start of shift. More alert during cares throughout shift. Vitals stable, on RA while awake, CPAP at NOC. Up SBA-Ax1 w/ walker and gaitbelt, up x2 to void. Pain 1-3/10 at rest but pt rates severe at 6-7/10 when sitting/standing/changing position, PRN Oxycodone x2 and Tylenol admin x1, effective to allow pt to sleep in between cares. Ice pack applied to R knee. Receiving IV vanco to L forearm IV. Pt has call light and uses appropriately.
[2023-06-26 06:57] LABS: Basophils Absolute Auto 0.05 K/uL (0.00-0.30); Basophils Percent Auto 0.5 % (0.0-3.0); Eosinophils Absolute Auto 0.27 K/uL (0.00-0.50); Eosinophils Percent Auto 2.6 % (0.0-7.0); Hematocrit 32.7 % (33.0-51.0); Hemoglobin* 10.2 gm/dL (12.0-16.0); Immature Granulocytes Abs Auto 0.02 K/uL (0.00-0.30); Immature Granulocytes Pct Auto 0.2 %; Lymphocytes Percent Auto 46.5 % (20-44); Mean Corpuscular HGB Conc 31 gm/dL (32-36); Mean Corpuscular Hemoglobin 30 pg (26-34); Mean Corpuscular Volume 97 fL (80-100); Monocytes Percent Auto 11.7 % (0.0-11.0); Neutrophils Percent Auto 38.5 % (42.0-72.0); Platelet Count* 322 K/uL (140-440); Red Blood Count 3.38 m/uL (4.00-5.20)
[2023-06-26 07:00] VITALS: BP 150/60; PULSE 66; RESP 18; TEMP 36.2; O2SAT 95
[2023-06-26 07:17] LABS: Chloride* 102 mmol/L (96-114); Sodium* 138 mmol/L (135-149)
[2023-06-26 07:19] LABS: Creatinine* 1.2 mg/dL (0.5-1.5); Est. Creatinine Clearance* 39.81; Estimated Glomerular Filt Rate 49 ml/min
[2023-06-26 07:20] LABS: Anion Gap 10 mEq/L (7-15); Blood Urea Nitrogen* 33 mg/dL (7-30); Carbon Dioxide* 26 mmol/L (20-32); Potassium* 3.2 mmol/L (3.6-5.1)
[2023-06-26 07:21] LABS: Calcium* 9.7 mg/dL (8.4-10.6); Glucose* 115 mg/dL (60-115)
[2023-06-26 07:24] LABS: Slide Review Reflex No
--- NOTE | 2023-06-26 08:11 | CRLHL7_ITS ---
For Patients: As a result of the Century Cures Act, medical imaging exams and procedure reports are released immediately into your electronic medical record. You may view this report before your referring provider. If you have questions, please contact your health care provider. CLINICAL HISTORY: The right total knee arthroplasty on 05/31/2023; pain and swelling right lower extremity; rule out DVT TECHNIQUE: A compression venous ultrasound exam was performed of the right lower extremity using valenzuela-scale imaging, color Doppler and spectral Doppler analysis. FINDINGS: Sonographic imaging of the right lower extremity demonstrates normal compressibility and color Doppler venous blood flow within the common femoral vein, deep femoral vein, and the proximal greater saphenous vein. Within the thigh, the femoral vein is patent and compressible. At a lower level, the popliteal and posterior tibial veins also show normal compressibility and color Doppler venous blood flow. Limited imaging of the contralateral groin demonstrates a normal spectral waveform and color Doppler venous blood flow within the left common femoral vein. IMPRESSION: Normal venous ultrasound exam. No evidence of deep vein thrombosis within the right lower extremity. Dictated by Sue José MD @ 06/26/2023 11:13:02 AM (Electronically Signed)
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
[2023-06-26] MEDS: CETIRIZINE HCL 10 MG TABLET PO (09:05)
[2023-06-26] MEDS: METOPROLOL SUCCINATE (XL) 25 MG TAB PO (09:05)
[2023-06-26] MEDS: FLECAINIDE ACETATE 50 MG TABLET 75 MG PO (09:06)
[2023-06-26] MEDS: APIXABAN 5 MG TABLET PO (09:06)
[2023-06-26] MEDS: SENNOSIDES 1 TAB TABLET PO (09:06)
[2023-06-26] MEDS: LOSARTAN POTASSIUM 50 MG TABLET 100 MG PO (09:06)
[2023-06-26] MEDS: TORSEMIDE 20 MG TABLET 40 MG PO (09:06)
[2023-06-26] MEDS: CHLORTHALIDONE 25 MG TABLET PO (09:06)
[2023-06-26] MEDS: OMEPRAZOLE 20 MG CAPSULE DR 40 MG PO (09:06)
[2023-06-26] MEDS: TOLTERODINE TARTRATE 2 MG CAP.ER.24H 4 MG PO (09:07)
[2023-06-26] MEDS: SODIUM CHLORIDE 0.9 % (FLUSH) 10 ML SYRINGE 5 ML IVF (09:07)
[2023-06-26 11:00] VITALS: BP 132/58; PULSE 61; RESP 18; TEMP 36.4; O2SAT 96
[2023-06-26 15:00] VITALS: BP 141/55; PULSE 65; RESP 16; TEMP 36.7; O2SAT 95
--- NOTE | 2023-06-26 15:03 | P.DS_ITS ---
DS: Providers Provider Date Seen: 06/26/23 Date of admission: 06/25/23 18:54 Primary care physician: Bart Lara MD Admitting Clinician: Kings Luis MD Consults: 06/25/23 18:27 Consult to Occupational Therapy [CONS] Urgent Comment: Reason(s) for OT Consult:: Evaluate and Treat Any Restrictions?:: No Restrictions Consult to Physical Therapy [CONS] Urgent Comment: Reason(s) for PT Consult:: Evaluate and Treat Any Restrictions?:: No Restrictions Attending Physician on discharge: Kings Luis MD Date of Discharge: 06/26/23 DS: Diagnosis Discharge Diagnosis (1) Status post right knee replacement: Status: Acute Problem details: (DOS: 05/31/23, Dr. Grubbs). No obvious postoperative complications. Surgical wound is healing nicely. No sign of infection. (2) Postoperative pain of right knee: Status: Acute Problem details: No sign of infection. Was seen by Dr. Craven and Ivette Livingston from ortho today as well as PT and OT. Okay to discharge to outpt PT/OT and f/u. (3) Obesity: Status: Chronic (4) Lymphedema of lower extremity: Status: Acute Problem details: - acute on chronic: blistering, pruritis of left lower posterior leg without induration. Increase torsemide for the next few days. Continue daily weights, low Na diet. Start elevating BLE higher than heart for 12hours out of every 24, 1500cc fluid restriction for the next few days and f/u with PCP. DS: Summary Hospital Course Hospital Course: 68-year-old female who is 3 weeks out from a right total knee arthroplasty. She has had ongoing right knee pain since surgery and has continued to use ox ycodone with acetaminophen 5 times a day for pain control. She has trouble getting off the toilet and is scared that she will have another episode like she did a few days ago where she will try to get up from the toilet and she felt her knee pop and had an immediate increase in her pain at that time. She presented through the ER yesterday for these concerns and was admitted overnight for further evaluation. Has had no fever. No evidence of postop infection. Orthopedics saw her today and agreed that there was no evidence of postop infection. PT and OT have evaluated her. She is concerned about getting up and down from the toilet at home and we spoke about getting a toilet riser which should help since she is able to get up and down from are raised bed without difficulties. Additionally I have asked her to take her walker into the bathroom with her to help her stand up from the toilet. I think with these additional changes she should do well at home. And like her to continue to work with outpatient PT and OT as previously prescribed and follow-up with ortho as previously scheduled. Additionally while she is here that she was complaining about pruritus on her posterior left ankle which does have blistering from lower extremity lymphedema that appears chronic. She has had some struggles with torsemide and her renal function recently and the dose was reduced because of t hat. It appears that she is currently having some mild volume overload without lung involvement. I have increased her torsemide for a few days and have asked her to follow-up with her primary care provider for labs and to see how that is going for her. Additionally her potassium was slightly low and will likely get lower with additional torsemide which I have prescribed her potassium orally for a few days. She is discharged in stable condition that is improved because she now has less pain than she did when she came in. Time Spent with Patient Time attestation: Total time spent providing and/or coordinating discharge services: Exam Narrative: Exam Narrative: General: No acute distress. Awake, alert, oriented. Morbidly obese. No pallor. No jaundice. Oropharynx: Clear. Mucous membranes moist. Cardiovascular: Regular rate and rhythm. No murmurs, gallops, or rubs. Respiratory: Clear to auscultation bilaterally. No wheezes or crackles. Abdomen: Bowel sounds present. Soft, nondistended, nontender. Extremities: Bilateral lymphedema with a baseball sized area blistering at the posterior left lower leg/ankle. This area is without erythema or induration. There is no open wound or drainage. Right knee has an ice pack which I removed and there is some blanchable pink color where the ice pack was but otherwise no erythema or induration. No tenderness over the incision today. There does not appear to be any fluid collection by palpation either. Const: Vital Signs, click to edit/add: Vital Signs - 24 hr 06/25/23 15:09 06/25/23 18:12 06/25/23 18:30 Temperature 97.3 F L Pulse Rate [Pulse Oximeter] 72 Pulse Rate [Right Pulse Oximeter] 80 74 Respiratory Rate 20 16 20 Blood Pressure [Le ft Arm] 133/57 L Blood Pressure [Ri ght Arm] Blood Pressure [Ri ght Upper Arm] 103/53 L 137/59 L Pulse Oximetry 94 97 95 Oxygen Delivery Me thod Room Air Room Air Room Air 06/25/23 23:45 06/25/23 23:45 06/26/23 02:00 Temperature 97.9 F 97.8 F Pulse Rate [Pulse Oximeter] 67 67 66 Pulse Rate [Right Pulse Oximeter] Respiratory Rate 20 20 16 Blood Pressure [Le ft Arm] 127/55 L Blood Pressure [Ri ght Arm] 149/60 H Blood Pressure [Ri ght Upper Arm] Pulse Oximetry 92 94 Oxygen Delivery Me thod CPAP Room Air 06/26/23 07:00 06/26/23 07:00 06/26/23 11:00 Temperature 97.2 F L 97.6 F Pulse Rate [Pulse Oximeter] 66 66 61 Pulse Rate [Right Pulse Oximeter] Respiratory Rate 18 18 18 Blood Pressure [Le ft Arm] Blood Pressure [Ri ght Arm] 150/60 H 132/58 L Blood Pressure [Ri ght Upper Arm] Pulse Oximetry 95 96 Oxygen Delivery Me thod Room Air Room Air DS: Data Data Completed and Pending Completed studies during hospitalization: Ordering Physician: Humble Gorman M.D. Date of Service: 06/25/23 Procedure(s): XR knee RT 3V Accession Number(s): [id number] cc: Bart Lara M.D.; Humble Gorman M.D.~ For Patients: As a result of the Century Cures Act, medical imaging exams and procedure reports are released immediately into your electronic medical record. You may view this report before your referring provider. If you have questions, please contact your health care provider. Indication: Knee pain, heard a pop, history of total knee arthroplasty Comparison: Two-view knee May 31, 2023 Technique: Standing AP, lateral, and sunrise views of the right knee were obtained Findings: There is no displaced fracture or dislocation. There is again seen total knee arthroplasty without evidence of hardware failure. There is interval development of severe prepatellar and suprapatellar soft tissue swelling. Resolution of previously seen subcutaneous emphysema. Impression: Status post knee arthroplasty without obvious hardware loosening or displaced fracture. Marked prepatellar and suprapatellar soft tissue swelling new from comparison. Dictated by Colby Diaz MD @ 06/25/2023 4:12:34 PM (Electronically Signed) Ordering Physician: Ivette King PA-C Date of Service: 06/26/23 Procedure(s): US venous LE RT Accession Number(s): [id number] cc: Bart Lara M.D.; Ivette King PA-C~ For Patients: As a result of the Cures Act, medical imaging exams and procedure reports are released immediately into your electronic medical record. You may view this report before your referring provider. If you have questions, please contact your health care provider. CLINICAL HISTORY: The right total knee arthroplasty on 05/31/2023; pain and swelling right lower extremity; rule out DVT TECHNIQUE: A compression venous ultrasound exam was performed of the right lower extremity using valenzuela-scale imaging, color Doppler and spectral Doppler analysis. FINDINGS: Sonographic imaging of the right lower extremity demonstrates normal compressibility and color Doppler venous blood flow within the common femoral vein, deep femoral vein, and the proximal greater saphenous vein. Within the thigh, the femoral vein is patent and compressible. At a lower level, the popliteal and posterior tibial veins also show normal compressibility and color Doppler venous blood flow. Limited imaging of the contralateral groin demonstrates a normal spectral waveform and color Doppler venous blood flow within the left common femoral vein. IMPRESSION: Normal venous ultrasound exam. No evidence of deep vein thrombosis within the right lower extremity. Dictated by Sue José MD @ 06/26/2023 11:13:02 AM (Electronically Signed) Labs on day of discharge: Labs from last 24 hours 06/26/23 06/25/23 06/25/23 05:51 18:19 16:20 WBC 10.30 12.45 H RBC 3.38 L 3.66 L Hgb 10.2 L 11.1 L Hct 32.7 L 35.4 MCV 97 97 MCH 30 30 MCHC 31 L 31 L RDW Coeff of Amy 13.0 13.0 Plt Count 322 363 Neut % (Auto) 38.5 L 61.2 Lymph % (Auto) 46.5 H 24.9 [place] % (Auto) 11.7 H 11.5 H Eos % (Auto) 2.6 1.0 Baso % (Auto) 0.5 0.4 Neut # (Auto) 4.00 7.60 H Lymph # (Auto) 4.80 H 3.10 H [place] # (Auto) 1.20 H 1.40 H Eos # (Auto) 0.27 0.10 Baso # (Auto) 0.05 0.00 Abs Immat Gran (auto) 0.02 0.10 Imm/Tot Granulo (auto) 0.2 1.0 Sodium 138 Potassium 3.2 L Chloride 102 Carbon Dioxide 26 Anion Gap 10 BUN 33 H Creatinine 1.2 Estimated Creat Clear 39.81 Estimated GFR 49 Glucose 115 Lactate Calcium 9.7 C-Reactive Protein 2.0 H TSH Lab Acknowledgement Test Added 06/25/23 16:15 WBC RBC Hgb Hct MCV MCH MCHC RDW Coeff of Amy Plt Count Neut % (Auto) Lymph % (Auto) [place] % (Auto) Eos % (Auto) Baso % (Auto) Neut # (Auto) Lymph # (Auto) [place] # (Auto) Eos # (Auto) Baso # (Auto) Abs Immat Gran (auto) Imm/Tot Granulo (auto) Sodium Potassium Chloride Carbon Dioxide Anion Gap BUN Creatinine Estimated Creat Clear Estimated GFR Glucose Lactate 1.3 Calcium C-Reactive Protein 1.7 H TSH 1.330 Lab Acknowledgement Discharge Plan Discharge Disposition: Home, Self-Care Date of Admission: 06/25/23 18:54 Attending Provider on Discharge: Zarina Conway Consulting Providers: Benito Craven Primary Care Provider: Bart Lara Condition: Improved Anticipated Discharge Date/Time: 06/26/23 15:12 Discharge Medications: New potassium chloride 20 mEq tablet extended release 40 meq PO DAILY 5 Days Qty: 10 0RF Continued acetaminophen [Tylenol Extra Strength] 500 mg tablet 1,000 mg PO Q6H sennosides [Senna Lax] 8.6 mg Tablet 17.2 mg PO BID PRN (Reason: constipation) Qty: 100 0RF torsemide 20 mg tablet 20 - 40 mg PO DAILY Rx Instructions: ALTERNATES 20 MG AND 40 MG DAILY cetirizine 10 mg tablet 10 mg PO DAILY nystatin 100,000 unit/gram ointment 1 applic topical BID PRN tolterodine 4 mg capsule,extended release 24hr 4 mg PO DAILY chlorthalidone 25 mg tablet 25 mg PO QAM omeprazole 40 mg capsule,delayed release(DR/EC) 40 mg PO DAILY flecainide 50 mg tablet 75 mg PO BID metoprolol succinate 25 mg tablet extended release 24 hr 25 mg PO DAILY nystatin 100,000 unit/gram powder 1 applic topical BID PRN losartan 100 mg tablet 100 mg PO DAILY rosuvastatin 5 mg tablet 5 mg PO HS Eliquis 5 mg tablet 5 mg PO BID oxycodone 5 mg tablet 2.5 - 5 mg PO Q4-6H MDD 6 tabs per day PRN (Reason: Pain) Qty: 42 0RF Rx Instructions: Minimize. Discontinue as soon as possible Discharge Orders: Discharge Order (Routine); Ordered 06/26/23 Ordered By: Zarina Conway Patient Education: Lymphedema (DC) Additional Instructions: 1. [facility]. 2. See Dr. Grubbs as previously scheduled in 2 weeks. 3. Continue outpatient therapy as prescribed. 4. Weigh yourself daily. Take torsemide 2 tabs daily for 5 days, then resume previous dosing. Take potassium as prescribed. Follow a 1500cc/day fluid restriction for the next week and a 2g sodium per day diet. Elevate both lower extremities higher than your heart for at least 12 hours out of every 24 hours. 5. I have given you a prescription for a cammode and toilet riser. Also use your walker in the bathroom to help you get off the toilet. Activity Level: Use Walker and Other Activity Detail: Per previous post op orders Discharge Diet: 2 gm Sodium and 1500 ml Fluid Restriction Follow Up Appointments: Bart Lara MD [Primary Care Provider] - (1 week with BMP) Forms: [employer] Info Instructions
[2023-06-26 18:15] VITALS: BP 116/50; PULSE 68
--- NOTE | 2023-06-26 18:35 | PC.NURSE ---
Discharge Summary: Patient pleasant and cooperative. Afebrile. Rating pain in right knee/thigh 2-3/10 at rest and up to 5/10 with activity, PRN oxycodone given x2. Up to bathroom with SBA, walker and gait belt. Tolerating regular diet with no nausea. Patient discharged home at 1817 with all personal belongings accompanied by spouse. Discharge instructions including diagnosis, medications and follow up appointment discussed with patient and voiced understanding.
== END 2023-06-26 18:17 | disposition home or self-care (01) ==
LOC: ED 16:00 → MEDSURG 18:55
PROVIDERS: Admitting Provider Family Medicine; Emergency Provider Emergency Medicine; PCP Surgery; Visit Provider Family Medicine
DX: M25.561 Pain in right knee (principal); G89.18 Other acute postprocedural pain; M25.461 Effusion, right knee; E66.01 Morbid (severe) obesity due to excess calories; Z68.43 Body mass index [BMI] 50.0-59.9, adult; E87.6 Hypokalemia; S80.822A Blister (nonthermal), left lower leg, initial encounter; L29.0 Pruritus ani; I89.0 Lymphedema, not elsewhere classified; Z79.01 Long term (current) use of anticoagulants; I48.91 Unspecified atrial fibrillation; M17.0 Bilateral primary osteoarthritis of knee; I10 Essential (primary) hypertension; G47.33 Obstructive sleep apnea (adult) (pediatric); K21.9 Gastro-esophageal reflux disease without esophagitis; E78.5 Hyperlipidemia, unspecified; R49.0 Dysphonia; Z88.1 Allergy status to other antibiotic agents; Z90.49 Acquired absence of other specified parts of digestive tract; Z96.651 Presence of right artificial knee joint; Z98.890 Other specified postprocedural states
CPT/HCPCS: 36415; 73562; 80048; 83605; 84443; 85025; 86140; 93971; 96365; 96366; 97116; 97161; 97165; 97530; 97535; 99284; A9270; G0378; J3370; J7120

== ENCOUNTER 2023-07-06 13:36 | Outpatient (CLI) | payer MEDICARE, BC, SELFPAY ==
--- NOTE | 2023-07-06 14:00 | CRLHL7_ITS ---
For Patients: As a result of the Century Cures Act, medical imaging exams and procedure reports are released immediately into your electronic medical record. You may view this report before your referring provider. If you have questions, please contact your health care provider. INDICATION: Pain and swelling. TECHNIQUE: Ultrasound venous duplex lower left extremity. Compression venous exam was performed using valenzuela-scale, color Doppler, and spectral Doppler analysis. COMPARISON: None. Please note that the study performed 06/26/2023 was of the contralateral right lower extremity. FINDINGS: Deep veins: Sonographic imaging demonstrates the left common femoral, deep femoral, superficial femoral, popliteal, posterior tibial, peroneal and contralateral right common femoral veins to be fully compressible with normal color Doppler blood flow. Superficial veins: Greater saphenous vein is fully compressible. No popliteal cyst. IMPRESSION: No evidence of left lower extremity DVT. Dictated by Lalo Palmer MD @ 07/06/2023 3:22:24 PM (Electronically Signed)
--- NOTE | 2023-07-06 15:00 | CRLHL7_ITS ---
For Patients: As a result of the Century Cures Act, medical imaging exams and procedure reports are released immediately into your electronic medical record. You may view this report before your referring provider. If you have questions, please contact your health care provider. HISTORY: Lymphedema. TECHNIQUE: Noncontrast CT of the left knee. COMPARISON: Radiographs 07/06/2023. FINDINGS: Tricompartmental degenerative arthrosis of the left knee. There is severe medial joint space compartment narrowing. There is no acute fracture. Small amount of left knee joint fluid. No significant popliteal cyst. No soft tissue mass or fluid collection. IMPRESSION: 1. Advanced degenerative arthrosis of the left knee with severe medial joint space compartment narrowing. 2. Minor suprapatellar joint effusion. 3. No acute fracture. Please note that all CT scans at this facility use dose modulation, iterative reconstruction, and/or weight-based dosing when appropriate to reduce radiation dose to as low as reasonably achievable. Dictated by Huber Munoz MD @ 07/08/2023 9:02:13 AM (Electronically Signed)
== END 2023-07-06 13:37 | disposition home or self-care (01) ==
PROVIDERS: PCP Surgery; Visit Provider Physician Assistant
DX: I89.0 Lymphedema, not elsewhere classified (principal); M17.12 Unilateral primary osteoarthritis, left knee; R22.42 Localized swelling, mass and lump, left lower limb
CPT/HCPCS: 73700; 93971

== ENCOUNTER 2023-07-08 11:00 | Outpatient (RCR) | payer MEDICARE, BC, SELFPAY ==
--- NOTE | 2023-05-23 16:52 | PT.OPEX ---
PT [place] Outpatient Eval PT [facility] Outpatient Eval Start: 05/23/23 13:38 Freq: Status: Active Protocol: Document 05/23/23 13:38 JEFF (Rec: 05/23/23 16:39 JEFF [id number]) E-signed By Jeane Her DPT Physical Therapy Outpatient Evaluation Insurance Information Recert Due Date 08/21/23 Insurance Name Medicare B Medical Diagnosis R knee OA R TKA 05/31/23 Treating Diagnosis R knee pain, impaired R knee ROM, impaired R knee/LE mobility/strength, limping/ antalgic gait using 4ww, limited tolerance for extended standing/walking, difficulty with stairs Subjective Subjective Patient reports chronic R knee pain, limited ROM with limited tolerance for extended standing/walking. States she 's had prior PT and continues with ongoing pain issues leading up to scheduled TKA next week 05/31/23. States she had a home safety eval with OT about a month ago to assess her home set up leading up to TKA surgery. She is planning to d/c home with spouse after her surgery. She has been using 4ww for amb. She has a standard walker at home. Reports fluctuating R knee pain, good days and bad days. Date of Surgery (If applicable) 05/31/23 Current Work Status Retired Precautions Treatment Precautions/Contraindications heart condition, HTN, fibro, CPAP, OA, lymphedema, latex allergy Assessment Assessment/Impression Patient is a 68 year old female with chronic R knee pain, impaired R knee ROM, impaired R knee/LE mobility/ strength, limping/antalgic gait using 4ww, limited tolerance for extended standing/walking, difficulty with stairs. She is scheduled for R TKE 05/31/23. Patient was seen in PT today for pre- op session to provide education/information on upcoming TKA surgery, safety information/HO, equipment instruction including use of FWW, and instruction in TKA exercises. Patient has TKA exercise handout. TKA exercises were reviewed and questions answered. Patient to perform them leading up to surgery. Reviewed PT/OT plan during hospital stay and patient is scheduled for OP PT post op. Patient reports having OT home safety assessment about a month ago to review her home set up and to get recommendations for discharge after surgery. Her goal is d/c to home after surgery. She lives in a rambler home with her spouse. He can assist after surgery. Patient is amb with 4ww. States she has a standard walker - discussed updated this to a FWW and patient will look into getting wheels. Patient would benefit from skilled PT for pain/sx management, improved knee ROM, improved knee/LE mobility/ strength, improved gait, balance/proprioception training, and establishment of HEP. Plan of Care Rehabilitation Potential Good Physical Therapy Goals 1. Patient will be educated in TKA pre/post-op safety, mobility, and exercises with HOs provided within one visit with patient returning to PT for post op treatment after R TKA surgery on 05/31/23. PT goals will be updated to TKA rehab goals when patient returns post op. Coordination/Communication With Referral Source Treatment Plan/Direct Interventions Gait Training,Manual Therapy, Therapeutic Exercises Frequency/Duration 2x/week Patient Will Be Discharged From Therapy Completion of LTG(s),Skills Plateau,Independent w/HEP, Independently Progressing Evaluation Billing Untimed Code Treatment Minutes 40 Complexity Moderate Certification Information Initial Certification Date 05/23/23 Ending Certification Date 08/21/23 Provider Signature Shows Agreement With POC & Medical Necessity Physician Signature & Date Requested Please Sign/Date Here Physician Comment/Change : Physician NPI Number #
== END 2023-08-29 15:39 | disposition home or self-care (01) ==
PROVIDERS: PCP Surgery; Visit Provider Orthopaedic Surgery
DX: M17.11 Unilateral primary osteoarthritis, right knee (principal); Z51.89 Encounter for other specified aftercare
CPT/HCPCS: 97110; 97162; 97164

== ENCOUNTER 2023-09-06 10:44 | Day surgery (SDC) | payer MEDICARE, BC, SELFPAY ==
[2023-09-06] VITALS (24 sets, daily range): BP systolic 97–161; BP diastolic 45–101; PULSE 55–78; RESP 14–18; TEMP 35.8–36.7; O2SAT 94–98; BMI 57.1
[2023-09-06] MEDS: CELECOXIB 200 MG CAPSULE PO (10:52)
[2023-09-06] MEDS: OXYCODONE (CR) 10 MG TAB.ER.12H PO (10:52)
[2023-09-06] MEDS: ACETAMINOPHEN 500 MG TABLET 1000 MG PO ×2 (10:52→19:14)
[2023-09-06] MEDS: LACTATED RINGERS 1000 ML 1,000 ML 100 ML IV ×2 (10:55→15:03)
--- OUTSIDE RECORDS SUMMARY | 2023-09-06 11:00 | XMS_ITS | Referral Summary ---
Author Name Unknown Organization [facility] Address [address] [place] [id number] Care Team Providers Care Broom[employer] Thresher Name Role Phone Milena Nguyễn Thompson Primary Care Provider [phone] Allergies Active Allergy Reactions Criticality Noted Date Comments Erythromycin GI Disturbance 08/29/2015 Iodine 08/29/2015 Burning Cephalexin 08/29/2015 Yeast infections Latex 08/29/2015 skin breakdown Lisinopril Cough 12/07/2017 Morphine Itching 08/29/2015 Prednisone 08/29/2015 Swelling and bloating with skilled nursing use Sulfa Antibiotics Rash Low 08/29/2015 Medications Medication Sig Dispensed Refills Start Date End Date Status [place]-3 Fatty Acids (OMEGA-3 FISH OIL PO) Take 2 capsules by mouth daily 0 Active VITAMIN D, CHOLECALCIFEROL, PO Take 2,000 Units by mouth daily 0 Active Cyanocobalamin (VITAMIN B-12 PO) Take 1,000 mcg by mouth daily 0 Active GLUCOSAMINE-CHONDR OITIN PO Take 3 tablets by mouth daily 0 Active Apixaban (ELIQUIS PO) Take 2.5 mg by mouth 2 times daily 0 Active Mirabegron (MYRBETRIQ PO) Take 50 mg by mouth daily 0 Active Furosemide (LASIX PO) Take 40 mg by mouth daily 0 Active Potassium Chloride Graciela ER (K-DUR PO) Take 20 mEq by mouth daily 0 Active Acetaminophen (TYLENOL PO) Take 1,000 mg by mouth 4 times daily as needed for mild pain or fever 0 Active albuterol (PROAIR HFA/PROVENTIL HFA/VENTOLIN HFA) 108 (90 Base) MCG/ACT Inhaler Inhale 2 puffs into the lungs every 6 hours as needed for shortness of breath / dyspnea or wheezing 0 Active triamcinolone (KENALOG) 0.1 % cream Apply topically 2 times daily as needed for irritation 0 Active fluocinonide (LIDEX) 0.05 % cream Apply topically 2 times daily as needed 0 Active erythromycin (ROMYCIN) ophthalmic ointmentIndication s:Postoperative eye state Apply to skin incisions three times daily and into the eye at bedtime. 3.5 g 0 12/08/2017 Active HYDROcodone-acetam inophen (NORCO) 5-325 MG per tabletIndications: Postoperative eye state Take 1 tablet by mouth every 6 hours as needed for pain Maximum of 4000 mg of acetaminophen in 24 hours. 10 tablet 0 12/08/2017 Active Social History Tobacco Use Types Packs/Day Years Used Date Smoking Tobacco: Former Cigarettes Q uit: 08/15/1994 Smokeless Tobacco: Never Alcohol Use Standard Drinks/Week Comments Yes 0 (1 standard drink = 0.6 oz pur e alcohol) 10-12/week Adolescent Education Answer Date Record ed Getting School Help Needed Not on file 05/29 Sex and Gender Information Value Date Recorded Sex Assigned at Not on file Gender Identity Not on file Sexual Orientation Not on file Last Filed Vital Signs Vital Sign Reading Time Taken Comments Blood Pressure 161/82 12/08/2017 3:51 PM CDT Pulse - - Temperature 36.3 ??C (97.4 ??F) 12/08/2017 3:00 PM CD T Respiratory Rate 20 12/08/2017 3:51 PM CDT Oxygen Saturation 94% 12/08/2017 3:51 PM CDT Inhaled Oxygen Concentration - - Weight 147.1 kg (324 lb 6.4 oz) 018 11:21 AM CDT Height 165.1 cm (5' 5) 12/08/2017 11:2 1 AM CDT Body Mass Index 53.98 12/08/2017 11:21 AM CDT Plan of Treatment Not on file Care Teams [employer] Thresher Relationship Specialty Start Date End Date Nguyễn Abbott PCP - General Family Practice 08/29/15
--- OUTSIDE RECORDS SUMMARY | 2023-09-06 11:00 | XMS_ITS | Clinical Summary ---
Author Name Unknown Organization [employer] [facility] Address [place], [place] [address] Care Team Providers Care Crop And Soil Scientist Name Role Phone Bart Lara MD Primary Care Provider [phone] Prudence Kinney DO Unavailable [phone] Allergies Active Allergy Reactions Criticality Noted Date Comments Cephalosporins Rash High 03/07/2021 Diatrizoate Allergen *Unknown 02/06/2019 Per patient, requires premedication prior to CT contrast exposure Erythromycin Nausea Only,GI Upset Low 10/06/2005 Cramping Tears up my stomach Formaldehyde *Unknown Low 03/07/2021 Formaldehyde Analogues Rash Found in soaps; so patient has to be careful which soaps she uses. Cephalexin Yeast Infection 10/06/2005 Yeast infections Unknown reaction, patient cannot remember Latex Contact Dermatitis Low 10/06/2005 skin breakdown Other reaction(s): BURNING/ITCHING Lisinopril Other - Describe In Comment Field,Cough 01/29/2016 cough Morphine Itching,Hives Low 05/13/2016 Povidone-Iodine Other - Describe In Comment Field 12/17/2009 Burning when Iodine is applied topically Prednisone Edema,Flushing High 10/06/2005 Swelling and bloating with prison use Other reaction(s): BLOATING Sulfa (Sulfonamide Antibiotics) Rash Low 10/06/2005 Medications Medication Sig Dispensed Refills Start Date End Date Status cyanocobalamin (VITAMIN B12) 500 mcg tabletIndications: B12 deficiency Take by mouth once daily. 0 06/24/20 16 Active cholecalciferol (VITAMIN D3) 2,000 unit capsule Takes 1 tablets every day 0 07/29/20 16 Active acetaminophen (TYLENOL EXTRA STRGTH) 500 mg tabletIndications: Incarcerated hernia,S/P hernia repair Take 1000 mg three times a day AND take an additional 500 mg twice a day as needed. Max acetaminophen dose: 4000mg in 24 hrs. 90 tablet 3 05/30/20 Active flecainide (TAMBOCOR) 50 mg tabletIndications: Persistent atrial fibrillation (HC) Take 1.5 Tablets (75 mg) by mouth every 12 hours. 270 Tablet 3 12/15/19 23 Active hydrocortisone (ANUSOL-HC) 2.5 % rectal creamIndications:H emorrhoids, external Apply topically to affected area(s) three times daily. Use for up to 1 week straight, then stop for a week 28 g 1 05/17/20 23 Active nystatin (MYCOSTATIN) ointmentIndication s:Vulvar irritation Apply topically to affected area(s) two times daily. 30 g 1 05/17/20 23 Active nystatin powder (MYCOSTATIN) powderIndications: Intertriginous candidiasis Apply topically to affected area(s) 2 times daily if needed (Rash). 60 g 3 05/17/20 23 Active CPAPIndications:OS A (obstructive sleep apnea) CPAP machine for home use at pressure 5-16 cmw, full face mask x1/3month with a full face cushion x1/mo 1 Each 11 07/04/20 23 Active sennosides (SENNA) 8.6 mg tabletIndications: Constipation, acute Take 1 Tablet (8.6 mg) by mouth two times daily. 180 Tablet 3 07/26/20 23 Active ondansetron (ZOFRAN ODT) 4 mg disintegrating tabletIndications: Nausea Place 1 Tablet (4 mg) on the tongue every 8 hours if needed for Nausea/Vomiting. 30 Tablet 0 07/26/20 23 Active oxyCODONE (ROXICODONE) 5 mg immediate release tabletIndications: Acute pain of left knee Take 1 Tablet (5 mg) by mouth every 6 hours if needed for Pain. 20 Tablet 0 08/01/20 23 Active Eliquis 5 mg tabletIndications: Hx pulmonary embolism TAKE ONE TABLET BY MOUTH TWICE A DAY 60 Tablet 08/20/19 24 Active losartan (COZAAR) 100 mg tabletIndications: Essential hypertension Take 1 Tablet (100 mg) by mouth once daily. 90 Tablet 08/29/19 24 Active metoprolol succinate (TOPROL XL) 25 mg Sustained-Release tabletIndications: Longstanding persistent atrial fibrillation (HC) Take 1 Tablet (25 mg) by mouth once daily. 90 Tablet 08/29/19 24 Active omeprazole (PRILOSEC) 40 mg Delayed-Release capsuleIndications :Incarcerated hernia Take 1 Capsule (40 mg) by mouth once daily before a meal. 90 Capsule 08/29/19 24 Active rosuvastatin (CRESTOR) 5 mg tabletIndications: Hyperlipidemia, unspecified hyperlipidemia type Take 1 Tablet (5 mg) by mouth at bedtime. 90 Tablet 08/29/19 24 Active torsemide (DEMADEX) 20 mg tabletIndications: Bilateral lower extremity edema Take 2 Tablets (40 mg) by mouth once daily. 180 Tablet 08/29/19 24 Active chlorthalidone (HYGROTON) 25 mg tabletIndications: Essential hypertension Take 1 Tablet (25 mg) by mouth every morning. 90 Tablet 08/29/19 24 Active chlorthalidone (HYGROTON) 25 mg tabletIndications: Hypertension Take 1 Tablet (25 mg) by mouth every morning. 90 Tablet 08/17/19 024 Discontinued apixaban (Eliquis) 5 mg tabletIndications: Hx pulmonary embolism Take 1 Tablet (5 mg) by mouth two times daily. 60 Tablet 08/17/19 024 Discontinued losartan (COZAAR) 100 mg tabletIndications: Hypertension Take 1 Tablet (100 mg) by mouth once daily. 90 Tablet 08/17/19 024 Discontinued(Re order (E-cancel not sent)) metoprolol succinate (TOPROL XL) 25 mg Sustained-Release tabletIndications: New onset atrial fibrillation (HC) Take 1 Tablet (25 mg) by mouth once daily. 90 Tablet 08/17/19 024 Discontinued(Re order (E-cancel not sent)) omeprazole (PRILOSEC) 40 mg Delayed-Release capsuleIndications :Incarcerated hernia Take 1 Capsule (40 mg) by mouth once daily before a meal. 90 Capsule 3 08/17/19 23 024 Discontinued(Re order (E-cancel not sent)) rosuvastatin (CRESTOR) 5 mg tabletIndications: Hyperlipidemia, unspecified hyperlipidemia type Take 1 Tablet (5 mg) by mouth at bedtime. 90 Tablet 3 08/17/19 23 024 Discontinued(Re order (E-cancel not sent)) torsemide (DEMADEX) 20 mg tabletIndications: Bilateral lower extremity edema Take 2 Tablets (40 mg) by mouth once daily. 180 Tablet 3 08/17/19 23 024 Discontinued(Re order (E-cancel not sent)) tolterodine (DETROL LA) 4 mg Extended-Release capsuleIndications :Urinary frequency Take 1 Capsule (4 mg) by mouth once daily. 90 Capsule 3 08/19/19 23 024 Discontinued(*M ed ineffective) cetirizine (ZYRTEC) 10 mg tabletIndications: Allergic rhinitis, unspecified seasonality, unspecified trigger TAKE 1 TABLET BY MOUTH ONCE DAILY. 90 Tablet 2 12/16/19 23 024 Discontinued(*M ed ineffective) ciprofloxacin HCl (CIPRO) 500 mg tabletIndications: Urinary tract infection symptoms Take 1 Tablet (500 mg) by mouth two times daily. 10 Tablet 0 05/28/20 23 024 Discontinued(*M ed complete/Regime n complete/Level of care change) oxyCODONE (ROXICODONE) 2.5 mg as half tablet Take by mouth. 0 05/31/20 23 024 Discontinued(*P atient states no longer taking) cyclobenzaprine (FLEXERIL) 10 mg tabletIndications: Acute pain of left knee Take 1 Tablet (10 mg) by mouth 3 times daily if needed for Muscle Spasm. 30 Tablet 0 07/26/20 23 024 Discontinued(*P atient states no longer taking) durable medical equipment (DME)Indications:A cute pain of left knee,Mobility impaired Wheelchair 1 Each 0 07/26/20 23 024 Discontinued(*P atient states no longer taking) chlorthalidone (HYGROTON) 25 mg tabletIndications: Hypertension TAKE ONE TABLET BY MOUTH EVERY MORNING 30 Tablet 0 08/20/19 24 024 Discontinued(Re order (E-cancel not sent)) chlorthalidone (HYGROTON) 25 mg tabletIndications: Hypertension Take 1 Tablet (25 mg) by mouth every morning. 30 Tablet 0 08/29/19 24 024 Discontinued(Re order (E-cancel not sent)) Active Problems Problem Noted Date Diagnosed Date Status post right knee replacement 07/26/2023 Lymphocytosis 05/22/2023 Overview: Present for years. She has seen hematology in 2016 and no further evaluation recommended unless absolute lymph count > 21114 or significant anemia or thrombocytopenia Grade II diastolic dysfunction 06/15/2020 Overview: Echo 06/13/2020 Longstanding persistent atrial fibrillation 01/14 Pulmonary embolism 04/06/2019 Overview: 2004 w/ admit to [facility] - placed on a/c resulting in abdominal hemorrhage s/p IVC filter, now removed S/P IVC filter 10/17/2018 Overview: IVC filter removed 2018 Urinary urgency 05/09/2017 Overview: Has seen Urology - Detrol didn't help Bilateral lower extremity edema 06/15/2016 Morbid obesity with BMI of 50.0-59.9, adult 03/16 Unspecified essential hypertension 04/17/2015 CARLOS 01/02/2015 AHI-11, REM-35 02/20/2015 Pulmonary nodule 09/18/2014 Overview: Stable on CT 2014 - no further evaluation needed Fibromyalgia 06/14/2014 Screen for colon cancer 09/23/2009 Overview: Colonoscopy 09/2009 diverticulosis repeat in 10 years Colonoscopy 02/2016 Diverticulosis, internal hemorrhoids repeat in 10 years Esophageal reflux Overview: EGD 02/2011 reflux - on omeprazole Celiac disease Resolved Problems Problem Noted Date Diagnosed Date Resolved Date Knee pain 07/26/2023 08/29/2023 Osteoarthritis of left knee 07/26/2023 08/29/2023 Degenerative joint disease of knee, right 07/26/2023 08/29/2023 Incarcerated hernia 02/08/2020 07/09/20 Venous ulcer, limited to breakdown of skin 08/27/2019 04/24/2021 Leg wound, left 05/22/2019 07/09/2020 Lymphocytosis 06/26/2018 02/08/2020 Primary osteoarthritis of both knees 01/26/2017 08/29/2023 Overview: March 2017: Ultrasound guided synvisc left knee. Leg wound, left 10/04/2016 08/27/2019 Leg wound, right 06/15/2016 10/04/2016 Leg wound, left 06/15/2016 07/27/2016 Lymphedema 06/15/2016 08/27/2019 Impaired fasting glucose 08/18/2007 Paroxysmal supraventricular tachycardia 08/27/2019 Overview: 11/26/05 w/ Dr. Hines: S/P 1. EPS, including isoproterenol provocation. 2. Mapping & ablation of the posterior input to the AV junction for typical slow-fast AV node reentry. We did use Stereotaxis. Myalgia and myositis, unspecified 08/27/2019 Overview: Fibromyalgia Encounters Date Type Department Care Team Description 08/29/2023 1:25 PM WATER TANKER DRIVER Preop Visit [facility] [address] [place] [address] Bart Lara MD Preoperative Exam (Left knee surgery 09/06/[address] [facility] [address] Grubbs); Medicare ANNUAL (subsequent) Visit (68 yr old female) 08/29/2023 Travel 08/18/2023 Refill [facility] [address] [place] [address] Bart Lara MD Refill Request (Eliquis, Chlorthalidone) 08/01/2023 Telephone [facility] [address] [place] [address] Radha Theodore, DO Medication is working 08/01/2023 Refill [facility] [address] [place] [address] Radha Theodore DO Refill Request (Oxycodone) 07/26/2023 1:20 PM WATER TANKER DRIVER Ancillary Procedure [address] [place] [address] 07/26/2023 12:25 PM WATER TANKER DRIVER Office Visit [address] [address] Radha Theodore DO Knee Pain/problem (LEFT - is having replacement 09/06/2023 - had RIGHT done in May and was doing physical therapy and and felt a jolt - has had difficulty walking on it - has been using oxy from her knee placement - has not helped - using tylenol Q 6 hours with no relief - saw Dr. Grubbs and was informed to come here for pain medication ) 07/26/2023 Travel 07/14/[address] [address] Bart Lara MD Medication Management 07/06/2023 Orders Only [facility] Scanner 1 scan: (1-Ord) [facility], KNEE W/O CONTRAST, 07/06/2023 07/05/2023 11:35 AM WATER TANKER DRIVER Office Visit [address] [address] [facility] (06/26 [facility]- Treated for cellulitis after knee surgery ) 07/05/2023 Travel 07/04/2023 8:00 AM WATER TANKER DRIVER Telemedicine [address] [address] Lg Bassett MD Sleep Follow-up; Telehealth (Virtual visit, no vitals taken.) 07/04/[address] [address] Lg Bassett MD MyChart Diifficulties 07/03/2023 Orders Only [facility] Scanner 1 scan: (1-Ord) EMILIANAMED, COMPLIANCE REPORT, 07/03/2023 06/26/2023 Orders Only [facility] Scanner 1 scan: (1-Ord) [place], US VENOUS LT RT, 06/26/2023 06/25/2023 Orders Only [facility] Scanner 1 scan: (1-Ord) [facility], XR KNEE RT, 06/25/2023 06/16/2023 2:20 PM CDT Orders Only [facility] [address] [place] [address] Lab, [facility] 06/16/2023 Travel 06/14/2023 Telephone [facility] [address] [place] [address] Bart Lara MD Medication Management from Last 3 Months Immunizations Name Administration Dates Next Due COVID-19 vaccine (Moderna 100mcg/0.5mL) VICTOR HUGO URIARTE 06/11/2021,11/06/2020,10/09/2020 Influenza, IIV3 (Age >=3 years) 06/29/2008,06/13 Influenza, IIV4 06/26/2018 Influenza, Inactivated AIIV4 (Age 65+ Years) Preserv Free 05/17/2023,06/10/2022,04/24/2021,2019 Influenza, Inactivated IIV3 (Age 65+ Years) Preserv Free 05/01/2019 Pneumococcal Poly,23-Valent (Pneumovax) 05/16/2020 Pneumococcal conj 13-Valent (Prevnar 13) 05/01/2019 Td (Age >=7 Years) 05/12/2005 Tdap 05/10/2013 Zoster (Shingrix-RZV, recombinant) 11/29/2018, Zoster (Zostavax-ZVL, live) 07/09/2014 Family History Medical History Relation Name Comments Heart Disease Brother CABG age 63. Cancer Father skin (basel melvin l), lung/bone Heart Disease Father Later in life Cancer-breast Maternal Aunt x3 Diabetes Mother Heart Disease Mother Later in life Cancer-breast Other Niece Anesthesia Problem No Family History Blood Disease No Family History Cancer-colon No Family History Cancer-ovarian No Family History Relation Name Status Comments Brother Father Maternal Aunt Mother Other Social History Tobacco Use Types Packs/Day Years Used Date Smoking Tobacco: Former Cigarettes 1 12 1 983 - 1994 Smokeless Tobacco: Never Tobacco Cessation:Counseling Given: Yes Comments:Smoked 1 pack per day for 12 years Alcohol Use Standard Drinks/Week Comments Yes 2 (1 standard drink = 0.6 oz pur e alcohol) PHQ-2 Answer Date Recorded PHQ-2 TOTAL SCORE 0 08/29/2023 Social Connections Answer Date Recorded Frequency of Communication with Friends and Fami ly 0 04/11/2023 Alcohol Use Answer Date Recorded How often do you have a drink containing alcohol ? 2 09/14/2021 How many drinks containing a lcohol do you have on a typical day when you are drinking? 0 09/14/2021 How often do you have five or more drinks on one occasion? 0 09/14/2021 Financial Resource Strain Answer Date R ecorded Difficulty of Paying Living Expenses 3 04/11/2023 Difficulty of Paying Living Expenses Not on file 04/11/2023 Food Insecurity Answer Date Recorded Worried About Running Out of Food in the Last Ye ar 1 04/11/2023 Transportation Needs Answer Date Record ed Lack of Transportation (Medical) 1 04/11/2023 Housing Stability Answer Date Recorded Unable to Pay for Housing in the Last Year 1 04/11/2023 Sex and Gender Information Value Date Recorded Sex Assigned at Not on file Gender Identity Not on file Sexual Orientation Not on file Obstetrics History Para Term AB IAB SAB Ectopic Multiple Livin g Live Births 3 2 2 2 2 Date Outcome GA Total Labor Labor/2nd/3rd Weight Sex Delivery Anes PTL Sujata A1 A5 Name Cl in 10/18 Term M Vag Tita ng 01/19 Term F Vag Tita ng Last Filed Vital Signs Vital Sign Reading Time Taken Comments Blood Pressure 134/74 08/29/2023 1:45 PM WATER TANKER DRIVER Pulse 73 08/29/2023 1:45 PM WATER TANKER DRIVER Temperature 36.6 ??C (97.9 ??F) 05/28/2023 1 0:33 AM CDT Respiratory Rate 20 05/28/2023 10:3 3 AM CDT Oxygen Saturation 100% 08/29/2023 1:45 PM WATER TANKER DRIVER Inhaled Oxygen Concentration - - Weight 150.8 kg (332 lb 6.4 oz) 08/29/2023 1:45 PM WATER TANKER DRIVER Height 165 cm (5' 4.96) 08/29/2023 1:45 PM WATER TANKER DRIVER Body Mass Index 55.38 08/29/2023 1:45 PM WATER TANKER DRIVER Plan of Treatment Upcoming Encounters Date Type Department Care Team (Late st Contact Info) Description 09/30/2023 11:00 AM WATER TANKER DRIVER Office Visit [facility] [address] [place] [address], [address] [place] [phone] Health Maintenance Due Date Last Done Comments Tetanus booster 05/10/2023 05/10/2013, 05/12/2005 Mammogram for age 45-75 07/26/2024 07/26/20 23, 04/28/2022, 04/15/2021, Additional history exists Medicare Wellness for age 65+ 08/28/2024, 08/17/2022, 08/14/2021, Additional history exists BMI (ht and wt on same day) for age 18+ 08/29/2024 08/29/2023, 04/11/2023, 12/14/2022, Additional history exists Depression screening for age 12+ 08/29/2024 08/29/2023, 08/17/2022, 08/17/2022, Additional history exists Colonoscopy through age 75 02/17/202602/17, 02/11/2016, 09/23/2009, Additional history exists Lipids for age 45-75 08/29/2028 08/29/2023, 08/17/2022, 08/14/2021, Additional history exists Fecal testing non-DNA (FIT,FOBT,iFOBT) for age 45-75 Discontinued 11/16/2011 Tdap Completed 05/10/2013 Hepatitis C screening for ag e 18-79 Completed 06/24/2016, 06/14/2014 Zoster (shingles) series for age 50+ Completed 11/29/2018, 09/18/2018, 07/09/2014 DEXA/DXA scan for age 65+ Completed 07/24/2019, Pneumococcal series for age 65+ Completed , 05/01/2019 Influenza for age 65+ Completed 05/17/2023 , 06/10/2022, 04/24/2021, Additional history exists COVID-19 vaccine series Completed 06/10/20 23, 08/03/2022, 11/24/2021, Additional history exists Medical Devices Implanted Type Area Front Man Device Identifier Shelf Expiration Date Model / Serial / Lot Repair Elevate Post - [id number] Implanted:Qty: 1 on 12/17/2009 at [facility] N/A: Pelvis [employer] 05/29/2012 [id number] # / [id number] / Description:please see impla nt sheet. Mesh Ventral [id number] Ventralight St W/Echo2 - [id number] Implanted:Qty: 1 on 05/23/2020 by Levi Renae MD at [facility] Right: Abdomen [employer] 01/09/2021 [id number] / / [id number] Mesh Ventral 15cm Ventralight St W/Echo2 - [id number] Implanted:Qty: 1 on 05/23/2020 by Levi Renae MD at [facility] [employer] 01/09/2021 [id number] / / [id number] Procedures Procedure Name Priority Date/Time Associated Diagnosis Comments BASIC METABOLIC PANEL Add On 08/29/2023 2:34 PM WATER TANKER DRIVER Hypertension LIPID PANEL Add On 08/29/2023 2:34 PM WATER TANKER DRIVER Hypertension HEMOGLOBIN A1C SCREENING Add On 08/29/2023 2:34 PM WATER TANKER DRIVER Prediabetes S PATH REVIEW HEMATOLOGY Routine 08/29/2023 2:34 PM WATER TANKER DRIVER Lymphocytosis RED CELL MORPHOLOGY Routine 08/29/2023 2 :34 PM WATER TANKER DRIVER Lymphocytosis PLATELET ESTIMATE Routine 08/29/2023 2:3 4 PM WATER TANKER DRIVER Lymphocytosis MANUAL DIFFERENTIAL Routine 08/29/2023 2 :34 PM WATER TANKER DRIVER Lymphocytosis CBC WITH AUTO DIFFERENTIAL Add On 08/29/2023 2:34 PM WATER TANKER DRIVER Lymphocytosis CBC WITH AUTO DIFFERENTIAL Add On 08/29/2023 2:34 PM WATER TANKER DRIVER Lymphocytosis POTASSIUM Routine 08/29/2023 2:34 PM WATER TANKER DRIVER Unspecified essential hypertension HEMOGLOBIN Routine 08/29/2023 2:34 PM WATER TANKER DRIVER Longstanding persistent atrial fibrillation (HC) XR MAMMO JUDD BILAT SCREEN Routine 07/26/2023 1:28 PM WATER TANKER DRIVER Visit for screening mammogram SCAN-CT INTERPRETATION 3 12:00 AM WATER TANKER DRIVER BASIC METABOLIC PANEL Routine 07/05/2023 12:43 PM WATER TANKER DRIVER Hypokalemia Lymphedema SCAN-DIAGNOSTIC REPORT 3 12:00 AM WATER TANKER DRIVER SCAN-ULTRASOUND REPORT 12:00 AM WATER TANKER DRIVER SCAN-RADIOLOGY REPORT 06/25/2023 12:00 AM WATER TANKER DRIVER VITAMIN D 25 (DEFICIENCY) Routine 06/16/2023 2:30 PM CDT Hypercalcemia PTH,INTACT Routine 06/16/2023 2:30 PM CDT Hypercalcemia CALCIUM Routine 06/16/2023 2:30 PM CDT Hypercalcemia from Last 3 Months Results * CWS PATH REVIEW HEMATOLOGY (08/29/2023 2:34 PM WATER TANKER DRIVER) PATH COMMENT Reviewed 08/31/2023 9:22 AM WATER TANKER DRIVER [facility] Comment:Reviewed by on Blood BLOOD SPECIMEN / Unknown Venipuncture / Unknown 08/29/2023 2:34 PM WATER TANKER DRIVER 08/29/2023 2:35 PM WATER TANKER DRIVER Bart Lara MD LABORATORY [facility] [address] [facility] [place] [address], [place] * (ABNORMAL) CBC WITH AUTO DIFFERENTIAL (08/29/2023 2:34 PM WATER TANKER DRIVER) Pathologist [facility] WHITE BLOOD COUNT 14.6(H) 4.5 - 11.0 thou/cu mm 08/29/2023 3:53 PM WATER TANKER DRIVER [facility] RED BLOOD COUNT 3.77(L) 4.00 - 5.20 mil/cu mm 08/29/2023 3:53 PM WATER TANKER DRIVER [facility] HEMOGLOBIN 11.4(L) 12.0 - 16.0 g/dL 08/29/2023 3:53 PM WATER TANKER DRIVER [facility] HEMATOCRIT 36.0 33.0 - 51.0 % 08/29/2023 3:53 PM WATER TANKER DRIVER [facility] MCV 95 80 - 100 fL 08/29/2023 3:53 PM WATER TANKER DRIVER [facility] MCH 30.0 26.0 - 34.0 pg 08/29/2023 3:53 PM WATER TANKER DRIVER [facility] MCHC 31.4(L) 32.0 - 36.0 g/dL 08/29/2023 3:53 PM WATER TANKER DRIVER [facility] RDW 14.2 11.5 - 15.5 % 08/29/2023 3:53 PM WATER TANKER DRIVER [facility] PLATELET COUNT 351 140 - 440 thou/cu mm 08/29/2023 3:53 PM WATER TANKER DRIVER [facility] MPV 11.3(H) 6.5 - 11.0 fL 08/29/2023 3:53 PM WATER TANKER DRIVER [facility] Blood BLOOD SPECIMEN / Unknown Venipuncture / Unknown 08/29/2023 2:34 PM WATER TANKER DRIVER 08/29/2023 2:35 PM WATER TANKER DRIVER Bart Lara MD HEMATOLOGY [facility] [address] [place] [address], [place] [phone] * HEMOGLOBIN A1C SCREENING (08/29/2023 2:34 PM WATER TANKER DRIVER) [facility] HEMOGLOBIN A1C SCREENING 5.9 <=6.4 % 08/29/2023 10:12 PM WATER TANKER DRIVER [facility] Blood BLOOD SPECIMEN / Unknown Venipuncture / Unknown 08/29/2023 2:34 PM WATER TANKER DRIVER 08/29/2023 2:35 PM WATER TANKER DRIVER Narrative [facility] - 08/29/2023 10:12 PM WATER TANKER DRIVER ? (<5.7%) ?Normal ? (5.7% to 6.4%) ? Indicates prediabetes ? (>=6.5%) ? Confirms diabetes Falsely low levels may be seen with: Recent Transfusion, Recent Significant Blood Loss, Hemolytic Diseases, or Falsely elevated levels may be seen with: Untreated Anemias, Splenectomy Bart Lara MD CHEMISTRY Performing Organization Address City/[facility]/ZIP Co de Phone Number [facility] [address] [address], * RED CELL MORPHOLOGY (08/29/2023 2:34 PM WATER TANKER DRIVER) RBC COMMENT RBC morphology appears normal RBC morphology appears normal, RBC morphology within normal limits for newborns. 08/29/2023 3:53 PM WATER TANKER DRIVER [facility] Blood BLOOD SPECIMEN / Unknown Venipuncture / Unknown 08/29/2023 2:34 PM WATER TANKER DRIVER 08/29/2023 2:35 PM WATER TANKER DRIVER Bart Lara MD HEMATOLOGY [facility] [address] [place] [address], [place] [phone] * PLATELET ESTIMATE (08/29/2023 2:34 PM WATER TANKER DRIVER) PLATELET ESTIMATE Adequate Adequate, No estimate 08/29/2023 3:53 PM WATER TANKER DRIVER [facility] Blood BLOOD SPECIMEN / Unknown Venipuncture / Unknown 08/29/2023 2:34 PM WATER TANKER DRIVER 08/29/2023 2:35 PM WATER TANKER DRIVER Bart Lara MD HEMATOLOGY [facility] [address] [place] [address], * (ABNORMAL) MANUAL DIFFERENTIAL (08/29/2023 2:34 PM WATER TANKER DRIVER) % NEUTROPHILS 53.0 % 08/29/2023 3:53 PM WATER TANKER DRIVER [facility] % LYMPHOCYTES 37.0 % 08/29/2023 3:53 PM WATER TANKER DRIVER [facility] % MONOCYTES 7.0 % 08/29/2023 3:53 PM WATER TANKER DRIVER [facility] % EOSINOPHILS 3.0 % 08/29/2023 3:53 PM WATER TANKER DRIVER [facility] % BASOPHILS 0.0 % 08/29/2023 3:53 PM WATER TANKER DRIVER [facility] NEUTROPHILS ABSOLUTE 7.7(H) 1.7 - 7.0 thou/cu mm 08/29/2023 3:53 PM WATER TANKER DRIVER [facility] LYMPHOCYTES ABSOLUTE 5.4(H) 0.9 - 2.9 thou/cu mm 08/29/2023 3:53 PM WATER TANKER DRIVER [facility] MONOCYTES ABSOLUTE 1.0(H) <0.9 thou/cu mm 08/29/2023 3:53 PM WATER TANKER DRIVER [facility] EOSINOPHILS ABSOLUTE 0.4 <0.5 thou/cu mm 08/29/2023 3:53 PM WATER TANKER DRIVER [facility] BASOPHILS ABSOLUTE 0.0 <0.3 thou/cu mm 08/29/2023 3:53 PM WATER TANKER DRIVER [facility] Blood BLOOD SPECIMEN / Unknown Venipuncture / Unknown 08/29/2023 2:34 PM WATER TANKER DRIVER 08/29/2023 2:35 PM WATER TANKER DRIVER Bart Lara MD HEMATOLOGY [facility] [address] [place] [address], [place] [phone] * (ABNORMAL) HEMOGLOBIN (08/29/2023 2:34 PM WATER TANKER DRIVER) HEMOGLOBIN 11.4(L) 12.0 - 16.0 g/dL 08/29/2023 2:39 PM WATER TANKER DRIVER [facility] MCV 95 80 - 100 fL 08/29/2023 2:39 PM WATER TANKER DRIVER [facility] Blood BLOOD SPECIMEN / Unknown Venipuncture / Unknown 08/29/2023 2:34 PM WATER TANKER DRIVER 08/29/2023 2:35 PM WATER TANKER DRIVER Bart Lara MD HEMATOLOGY [facility] [address] [place] [address], * POTASSIUM (08/29/2023 2:34 PM WATER TANKER DRIVER) [facility] POTASSIUM 4.2 3.5 - 5.1 mmol/L 08/29/2023 10:14 PM WATER TANKER DRIVER [facility] Blood BLOOD SPECIMEN / Unknown Venipuncture / Unknown 08/29/2023 2:34 PM WATER TANKER DRIVER 08/29/2023 2:35 PM WATER TANKER DRIVER Bart Lara MD CHEMISTRY [facility] [address] [place] [address] * (ABNORMAL) LIPID PANEL (08/29/2023 2:34 PM WATER TANKER DRIVER) [facility] CHOLESTEROL,TOTAL 155 100 - 199 mg/dL 08/29/2023 11:33 PM WATER TANKER DRIVER [facility] Comment: Cholesterol, Total Reference Ranges Desirable <200 mg/dL Borderline 200-239 mg/dL High >=240 mg/dL TRIGLYCERIDES 206(H) <150 mg/dL 08/29/2023 11:33 PM WATER TANKER DRIVER [facility] HDL CHOLESTEROL 57 >40 mg/dL 11:33 PM WATER TANKER DRIVER [facility] NON-HDL CHOLESTEROL 98 <145 mg/dl 08/29/2023 11:33 PM WATER TANKER DRIVER [facility] CHOL/HDL RATIO 2.72 <4.50 08/29/2023 11:33 PM [facility] LDL CHOLESTEROL 57 <=130 mg/dL 08/29/2023 11:33 PM [facility] VLDL CHOLESTEROL 41(H) <=30 mg/dL 08/29/2023 11:33 PM [facility] Blood BLOOD SPECIMEN / Unknown Venipuncture / Unknown 08/29/2023 2:34 PM WATER TANKER DRIVER 08/29/2023 2:35 PM WATER TANKER DRIVER Bart Lara MD CHEMISTRY [facility] [address] [place] [address], * (ABNORMAL) BASIC METABOLIC PANEL (08/29/2023 2:34 PM WATER TANKER DRIVER) Only the most recent of2 resultswithin the time period is included. SODIUM 141 136 - 145 mmol/L 08/30/2023 12:14 AM [facility] POTASSIUM 4.2 3.5 - 5.1 mmol/L 08/30/2023 12:14 AM [facility] CHLORIDE 100 98 - 107 mmol/L 08/30/2023 12:14 AM [facility] CO2,TOTAL 25 22 - 29 mmol/L 08/30/2023 12:14 AM [facility] ANION GAP 16 5 - 18 08/30/2023 12:14 AM [facility] GLUCOSE 98 70 - 99 mg/dL 08/30/2023 12:14 AM [facility] CALCIUM 10.1 8.8 - 10.2 mg/dL 08/30/2023 12:14 AM [facility] BUN 34(H) 8 - 23 mg/dL 08/30/2023 12:14 AM [facility] CREATININE 1.28(H) 0.50 - 0.90 mg/dL 08/30/2023 12:14 AM [facility] BUN/CREAT RATIO 27(H) 10 - 20 4 12:14 AM WATER TANKER DRIVER [facility] eGFR 45(L) >90 mL/min/1.7 3m2 08/30/2023 12:14 AM WATER TANKER DRIVER [facility] Comment:As of 2021, eG FR is calculated by the CKD-EPI creatinine equation without race adjustment. ??eGFR can be influenced by muscle mass, exercise, and diet. ??The reported eGFR is an estimation only and is only applicable if the renal function is stable. Blood BLOOD SPECIMEN / Unknown Venipuncture / Unknown 08/29/2023 2:34 PM WATER TANKER DRIVER 08/29/2023 2:35 PM WATER TANKER DRIVER Bart Lara MD CHEMISTRY [facility] [address] [place] [address], [place] * XR MAMMO JUDD BILAT SCREEN (07/26/2023 1:28 PM WATER TANKER DRIVER) Anatomical Region Laterality Modality BREASTS, Breast Left, Breast Right Bilateral Mammography Impressions 07/26/2023 3:44 PM WATER TANKER DRIVER ??There is no radiographic evidence for malignancy. ??Recommend annual mammograms. MAMMOGRAM ASSESSMENT: ??ACR 1 Negative PATIENTS: You will also receive a letter with your examination results in an easy to read format. ??If you have questions about your results, please contact your referring provider. Narrative 07/26/2023 3:44 PM WATER TANKER DRIVER For Patients: As a result of the 21st Century Cures Act, medical imaging exams and procedure reports are released immediately into your electronic medical record. You may view this report before your referring provider. If you have questions, please contact your health care provider. XR MAMMO JUDD BILAT SCREEN [[id number]] CLINICAL HISTORY: ??This is an asymptomatic 68 y.o. patient. INDICATION FOR EXAM: Mammogram Screening. TECHNIQUE: CC & MLO views were obtained. ??This study was evaluated with the assistance of Computer-Aided Detection. Breast Tomosynthesis was used in interpretation. COMPARISON FILM: Yes 04/28/22 [facility] 04/15/21 [facility] FINDINGS: ??The breasts have scattered areas of fibroglandular density. There are no dominant masses, suspicious micro calcifications or areas of architectural distortion. Bart Lara MD MAMMO * SCAN-CT INTERPRETATION (07/06/2023 12:00 AM WATER TANKER DRIVER) Anatomical Region Laterality Modality Other Scanner OTHER * SCAN-DIAGNOSTIC REPORT (07/03/2023 12:00 AM WATER TANKER DRIVER) Scanner OTHER * SCAN-ULTRASOUND REPORT (06/26/2023 12:00 AM WATER TANKER DRIVER) Anatomical Region Laterality Modality Other Scanner OTHER * SCAN-RADIOLOGY REPORT (06/25/2023 12:00 AM WATER TANKER DRIVER) Anatomical Region Laterality Modality Other Scanner OTHER * VITAMIN D 25 (DEFICIENCY) (06/16/2023 2:30 PM CDT) VITAMIN D TOTAL 33.7 20.0 - 80.0 ng/mL 06/17/2023 4:35 AM CDT [facility] Blood BLOOD SPECIMEN / Unknown Venipuncture / Unknown 06/16/2023 2:30 PM CDT 06/16/2023 2:31 PM CDT Narrative [facility] - 06/17/2023 4:35 AM CDT ? Vitamin D Status Deficiency: ? <20 ng/mL Insufficiency: ?20-29 ng/mL Sufficiency: ?30-80 ng/mL Possible Toxicity: ??>80 ng/mL Based on [employer] recommendations Biotin supplements may cause clinically significant interference for this test assay. ??If interference is suspected, it is strongly recommended that biotin is discontinued for at least one week prior to retesting. Bart Lara MD SEND OUTS [facility] [address] * (ABNORMAL) PTH,INTACT (06/16/2023 2:30 PM CDT) CALCIUM 9.7 8.8 - 10.2 mg/dL 06/16/2023 10:49 PM CDT [facility] PTH,INTACT 79.7(H) 15.0 - 69.0 pg/mL 06/16/2023 10:49 PM CDT [facility] Blood BLOOD SPECIMEN / Unknown Venipuncture / Unknown 06/16/2023 2:30 PM CDT 06/16/2023 2:31 PM CDT Bart Lara MD SEND OUTS Performing Organization Address City/[facility]/ZIP Co de Phone Number [facility] [address] * CALCIUM (06/16/2023 2:30 PM CDT) CALCIUM 9.7 8.8 - 10.2 mg/dL 06/16/2023 10:49 PM CDT [facility] Blood BLOOD SPECIMEN / Unknown Venipuncture / Unknown 06/16/2023 2:30 PM CDT 06/16/2023 2:31 PM CDT Bart Lara MD CHEMISTRY [facility] [address] from Last 3 Months Additional Health Concerns Infection Onset Date 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 Do not delete or resolve the infection flag. 02/13/2019 02/13/2019 Advance Directives Documents on File Type Date Recorded Patient Manager Market Intelligence Expl anation POLST 06/04/2020 1:34 PM 1016.20 Latest Code Status on File Code Status Date Activated Date Inactivated Comments Full Code 05/23/2020 9:43 AM 05/29/2020 4:47 PM Code Status History Code Status Date Activated Date Inactivated Comments Full Code 03/06/2020 7:22 AM 03/06/2020 12:40 PM Full Code 02/08/2020 8:26 PM 02/12/2020 5:44 PM Question Answer Comments Code Status Discussion: Discussed Full Code 12/17/2009 12:48 PM 12/18/2009 5:24 PM Full Code 12/17/2009 11:15 AM 12/17/2009 12:48 PM Care Teams Crop And Soil Scientist Relationship Specialty Start Date End Date Bart Lara MD [address] [place] [address] PCP - General Family Practice 10/03/18 Prudence Kinney DO [address] [place] [address] [address] Family Practice 12/08/22
--- OUTSIDE RECORDS SUMMARY | 2023-09-06 11:00 | XMS_ITS | Clinical Summary ---
Author Name Unknown Organization [facility] Address [address] [place] [id number] Care Team Providers Care Profiler Hand Name Role Phone Nguyễn Abbott Jay Primary Care Provider [phone] Allergies Active Allergy Reactions Criticality Noted Date Comments Erythromycin GI Disturbance 08/29/2015 Iodine 08/29/2015 Burning Cephalexin 08/29/2015 Yeast infections Latex 08/29/2015 skin breakdown Lisinopril Cough 12/07/2017 Morphine Itching 08/29/2015 Prednisone 08/29/2015 Swelling and bloating with mcc use Sulfa Antibiotics Rash Low 08/29/2015 Medications Medication Sig Dispensed Refills Start Date End Date Status Cement-3 Fatty Acids (OMEGA-3 FISH OIL PO) Take [...] 12/08/2017 11:21 AM CDT Plan of Treatment Health Maintenance Due Date Last Done Comments ADVANCE CARE PLANNING 1954 ANNUAL REVIEW OF HM ORDERS 1954 CT COLONOGRAPHY 1954 DEXA 1954 FIT 1954 FLEX SIG 1954 MAMMO SCREENING 1954 sDNA (Cologuard) 1954 COVID-19 Vaccine (#1) 1954 COLONOSCOPY 1964 COLORECTAL CANCER SCREENING 1964 HEPATITIS C SCREENING 1972 DTAP/TDAP/TD IMMUNIZATION (1 - Tdap) 1979 LIPID 1999 LUNG CANCER SCREENING 2004 RSV VACCINE ( & 60+ ) (1 - 1-dose 60+ series) 2014 ZOSTER IMMUNIZATION (2 of 3) 09/03/2014 07/09/2014 FALL RISK ASSESSMENT 2019 MEDICARE ANNUAL WELLNESS VISIT 2019 Pneumococcal Vaccine: 65+ Years (1 of 1 - PCV) 2019 INFLUENZA VACCINE (#1) 2023 8, 06/13/2006 PHQ-2 (once per calendar year) 2023 HPV IMMUNIZATION Aged Out No longer e ligible based on patient's age to complete this topic IPV IMMUNIZATION Aged Out No longer e ligible based on patient's age to complete this topic MENINGITIS IMMUNIZATION Aged Out No l onger eligible based on patient's age to complete this topic RSV MONOCLONAL ANTIBODY Aged Out No l onger eligible based on patient's age to complete this topic Care Teams Profiler Hand Relationship Specialty Start Date End Date Nguyễn Abbott PCP - General Family Practice 08/29/15
[2023-09-06] MEDS: SODIUM CHLORIDE 0.9 % (FLUSH) 10 ML SYRINGE IVF (11:32)
[2023-09-06] MEDS: MIDAZOLAM HCL 1 MG/ML inj IVP (12:00)
[2023-09-06] MEDS: fentaNYL 100 MCG/2 ML inj IVP (12:00)
--- NOTE | 2023-09-06 12:07 | P.NB_ITS ---
Nerve Block Nerve Block Time Seen by Provider: 12:06 Date Seen: 09/06/23 Type of block requested by surgeon for post-operative analgesia: adductor canal Side: left Time out performed: Yes Verification of patient name: Yes Verification of date of : Yes Site marking: site marked Name of person performing procedure: Aureliano Continuous monitoring Was continuous monitoring of O2 sat, B/P, manager investment, recorded every 15 minutes?: Yes Procedure Checklist: sterile prep, needles and gloves Ultrasound guided. Images saved: Yes Medications given in 5ml increments after negative aspiration: Ropivicaine %: 0.5 mL: 20 Needle gauge: 20 Decadron (mg): 10 Precedex (mcg): 25 Patient tolerated procedure well: Yes Additional comments: Needle noted adjacent to nerve Block Charges Block Charge (with Pro Fee): Femoral Nerve Use of Ultrasound Machine for Block: Yes- US Guidance/pain block
--- NOTE | 2023-09-06 12:08 | P.NB_ITS ---
Nerve Block Nerve Block Time Seen by Provider: 12:06 Date Seen: 09/06/23 Type of block requested by surgeon for post-operative analgesia: geniculars Side: left Time out performed: Yes Verification of patient name: Yes Verification of date of : Yes Site marking: site marked Name of person performing procedure: Aureliano Continuous monitoring Was continuous monitoring of O2 sat, B/P, electrical contacts adjuster, recorded every 15 minutes?: Yes Procedure Checklist: sterile prep, needles and gloves Medications given in 5ml increments after negative aspiration: Ropivicaine %: 0.5 mL: 9 Needle gauge: 25 Patient tolerated procedure well: Yes Block Charges Block Charge (with Pro Fee): Genicular Nerve Block Use of Ultrasound Machine for Block: No
--- NOTE | 2023-09-06 12:08 | SUR.PREOP ---
TIME?OUT:?1159 PT/RN/MDA?VERIFICATION?OF?SURGICAL?SITE Left Knee,?PROCEDURE Nerve Block,?AND?CONSENT OBTAINED?PRIOR?TO?INVASIVE?PROCEDURE.
--- NOTE | 2023-09-06 12:09 | W.ANESCHARGE ---
Anesthesia Charges Start Date/Time Anesthesia Start Date: 09/06/23 Anesthesia Start Time: 12:13 Stop Date/Time Anesthesia Stop Date: 09/06/23 Anesthesia Stop Time: 15:03
[2023-09-06] MEDS: CEFAZOLIN 1 GM inj 3 GM IVP (12:30)
[2023-09-06] MEDS: TRANEXAMIC ACID 100 MG/ML INJ 1000 MG IV (12:35)
--- NOTE | 2023-09-06 14:22 | CRLHL7_ITS ---
For Patients: As a result of the Cures Act, medical imaging exams and procedure reports are released immediately into your electronic medical record. You may view this report before your referring provider. If you have questions, please contact your health care provider. Indication: POST OP TKA Technique: Two views left knee Findings/Impression: Hardware from a left total knee arthroplasty is in satisfactory position. Bone alignment is normal. No sign of acute fracture. Postop changes are within normal limits. Dictated by Doroteo Antonio MD @ 09/07/2023 8:01:13 AM (Electronically Signed)
--- NOTE | 2023-09-06 14:24 | P.ORPRC_ITS ---
Procedure Note Date of procedure: 09/06/23 Procedure: PREOPERATIVE DIAGNOSIS: Left knee osteoarthritis POSTOPERATIVE DIAGNOSIS: Left knee osteoarthritis NAME OF OPERATION: Left total knee arthroplasty SURGEON: Bo Grubbs MD PUPIL PERSONNEL WORKER: DAVID Mendoza ANESTHESIA: Spinal ESTIMATED BLOOD LOSS: 0 mL COMPLICATIONS: None SPECIMENS: None DRAINS: None PREOPERATIVE ANTIBIOTICS: Ancef 3 grams, antibiotic impregnated cement IMPLANTS: 1. J&J Attune #6 posterior stabilized femur, with a 14 mm x 50 mm cemented stem 2. # 5 fixed-bearing tibia, with a 14 mm x 50 mm cemented stem 3. #6 posterior stabilized, 5 mm fixed-bearing polyethylene 4. 38 patella INDICATIONS: The patient is a 68-year-old with a longstanding history of severe, unrelenting left knee pain secondary to end-stage (grade IV) left knee osteoarthritis. Despite appropriate nonoperative management, including activity modification, anti-inflammatories, [id number] pain medication, bracing, physical therapy, and injections they continue to have pain and disability. Operative intervention was offered. The risks, benefits and expected outcomes were discussed in detail. These included but were not limited to: Infection, bleeding, injury to blood vessel or nerve, venous thromboembolism. All questions were answered to their satisfaction. Use of an assistant football coach was necessary throughout the case for patient positioning and safety, soft tissue retraction, and closure. A modifier 22 should be added to this case. The patient's weight of 158 kg with a BMI of 58 kg/meter squared and a 50 mm layer of adipose over the extensor mechanism made the dissection and exposure difficult. These factors more than doubled the time typically required to complete the case. PROCEDURE: Spinal anesthesia was administered. The patient was placed supine on the operating table. The assistant football coach made sure the patient was positioned appropriately. The lower extremity was prepped and draped in the usual sterile fashion. The limb was exsanguinated with the Caleb bandage. The pneumatic tourniquet was inflated to 300 mmHg. A standard anterior incision was made with the knee in flexion. Subcutaneous dissection was sharply taken through fascial layer #1. Full-thickness medial and lateral flaps were elevated. The assistant football coach retracted the soft tissues and protected them throughout the case. A standard subvastus approach was made. The patella was everted. The infrapatellar fat pad was debrided. The menisci and cruciate ligaments were sharply d?brided. Marginal osteophytes were d?brided with the rongeur. The drill was used to penetrate the femoral canal. The canal was aspirated and irrigated with pulse lavage. The intramedullary femoral guide was placed for a 5-degree valgus cut, removing 10 mm off the distal femur. The saw was used to make the cut. Whitesides line and the trans epicondylar axis were marked. The femoral sizing guide was pinned onto the distal femur. Three degrees of external rotation nicely parallels the transepicondylar axis. Pins were placed for posterior referencing. The four-in-one cutting guide was pinned onto the distal femur. The anterior, posterior, and chamfer cuts were made. The assistant football coach protected the collateral ligaments. The revision femoral trial was pinned. The box cuts were made. The drill was used x2. The boxed, stemmed trial was placed and was an excellent fit. Attention was then turned to the proximal tibia. The extramedullary tibial guide was placed for a neutral varus/valgus cut with 5 degrees of posterior slope, removing 2 mm based off the medial tibial surface. The assistant football coach protected the collateral ligaments and the neurovascular bundle. The saw was used to make the cut. Trial components were placed. The knee was nicely balanced in both flexion and extension. The trial components were removed. The tray was placed in appropriate rotation, parallel to our tibial cutting pins. It was pinned by the assistant football coach and the drill x2 was used. The stemmed tibial trial was placed. The punch was used. T he tray was removed. The punch was used again. Attention was then turned to the patella. Eagle patellar thickness was 22 mm. The lobster claw resection guide was used with the 9.5 mm tristan. The saw was used to make the cut. Drill holes were made by the assistant football coach. The trial was placed and was an excellent fit. Cancellous surfaces were irrigated with pulse lavage and thoroughly dried by the assistant football coach. We cemented the tibial component, then the femoral component. We impacted the 5 mm polyethylene onto the tibial tray. The knee was brought into full extension. We then cemented the patellar component. Excessive cement was removed. The cement was allowed to harden. The knee was taken through a range of motion and was found to be nicely balanced in both flexion and extension. The patella tracks centrally. The assistant football coach did a three minute dilute Betadine solution soak. The assistant football coach irrigated the wound with 3 liters of normal saline via pulse lavage. The assistant football coach reapproximated the extensor mechanism with #1 Vicryl in an interrupted [id number] fashion. The assistant football coach then ran the extensor mechanism with a #1 PDO Stratafix. The assistant football coach closed the subcutaneous tissues with a 3-0 Stratafix and the skin with a running 3-0 Stratafix in a subcuticular fashion. Glue was used to seal the skin. The assistant football coach placed a dry dressing, DANIELA stocking, and Polar Care. Sponge and needle counts were correct x2. The patient tolerated the procedure well. There were no apparent complications. They were carefully transferred to the hospital bed and taken to the postane sthesia care unit in satisfactory condition. PLAN: The patient will be mobilized with physical therapy. The patient's usual dose of Eliquis can be restarted. They will be discharged to home once medically appropriate.
--- NOTE | 2023-09-06 15:01 | W.ANESCHARGE ---
Anesthesia Charges Start Date/Time Anesthesia Start Date: 09/06/23 Anesthesia Start Time: 12:13 Stop Date/Time Anesthesia Stop Date: 09/06/23 Anesthesia Stop Time: 15:03
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
[2023-09-06] MEDS: HYDROmorphone 0.5 mg/0.5 ml inj IVP ×2 (16:08→16:59)
[2023-09-06] MEDS: OXYCODONE 5 MG TABLET PO ×3 (16:30→21:29)
[2023-09-06] MEDS: CEFAZOLIN 3 GM in 0.9 % SODIUM CHLORIDE Mini-bag 100 ML IVPB (21:29)
[2023-09-06] MEDS: SENNOSIDES 1 TAB TABLET 2 TAB PO (21:30)
[2023-09-06] MEDS: APIXABAN 5 MG TABLET PO (21:30)
--- NOTE | 2023-09-06 23:13 | PC.NURSE ---
Patient to unit at 1540 post op left total knee. Awake but drowsy, reporting pain to left thigh at , pain managed with PRN's, ice and positioning. Denies any nausea, diet advanced to regular and tolerating well. Up to BSC x 1, urine clear and pale yellow. CMS to left leg intact, dressing to knee clean, dry and intact. Bowel sounds active x 4 quadrants.
[2023-09-07] MEDS: OXYCODONE 5 MG TABLET PO ×4 (00:10→11:06)
[2023-09-07] MEDS: ACETAMINOPHEN 500 MG TABLET 1000 MG PO ×2 (04:18→10:07)
[2023-09-07 04:20] VITALS: BP 110/48; PULSE 55; RESP 16; TEMP 36.4; O2SAT 90
[2023-09-07] MEDS: CEFAZOLIN 3 GM in 0.9 % SODIUM CHLORIDE Mini-bag 100 ML IVPB (04:22)
[2023-09-07] MEDS: diphenhydrAMINE 50 MG/ML inj IVP (04:31)
--- NOTE | 2023-09-07 05:33 | PC.NURSE ---
Pt alert and oriented x3. Afebrile. Pt reports 6/10 pain in left knee, pain managed with cryo cuff, scheduled and PRN medications. Pt's left knee dressing is CDI. Pt is up A1 with walker and gait belt to the bathroom. Pt is voiding, passing gas, tolerating a regular diet and slept intermittently throughout night.
[2023-09-07 06:49] LABS: Basophils Percent Auto 0.1 % (0.0-3.0); Hematocrit 32.8 % (33.0-51.0); Hemoglobin* 10.3 gm/dL (12.0-16.0); Immature Granulocytes Pct Auto 0.3 %; Lymphocytes Percent Auto 23.4 % (20-44); Mean Corpuscular HGB Conc 31 gm/dL (32-36); Mean Corpuscular Hemoglobin 30 pg (26-34); Mean Corpuscular Volume 95 fL (80-100); Monocytes Percent Auto 7.2 % (0.0-11.0); Platelet Count* 336 K/uL (140-440); Red Blood Count 3.47 m/uL (4.00-5.20)
[2023-09-07 06:51] LABS: Slide Review Reflex No
[2023-09-07 07:03] LABS: INR 1.06 (0.91-1.10); Prothrombin Time 14.4 Seconds; Sodium* 136 mmol/L (135-149)
[2023-09-07 07:04] LABS: Potassium* 3.4 mmol/L (3.6-5.1)
[2023-09-07 07:07] LABS: Blood Urea Nitrogen* 35 mg/dL (7-30); Creatinine* 1.1 mg/dL (0.5-1.5); Est. Creatinine Clearance* 41.68; Estimated Glomerular Filt Rate 54 ml/min
[2023-09-07 07:45] VITALS: BP 113/50; PULSE 67; RESP 18; TEMP 36.2; O2SAT 95
[2023-09-07] MEDS: FLECAINIDE ACETATE 50 MG TABLET 75 MG PO (08:41)
[2023-09-07] MEDS: TORSEMIDE 20 MG TABLET 40 MG PO (08:43)
[2023-09-07] MEDS: METOPROLOL SUCCINATE (XL) 25 MG TAB PO (08:43)
[2023-09-07] MEDS: APIXABAN 5 MG TABLET PO (08:44)
[2023-09-07] MEDS: SENNOSIDES 1 TAB TABLET 2 TAB PO (08:45)
--- NOTE | 2023-09-07 09:34 | PM.ORPN ---
Subjective Subjective Time Seen by Provider: 08:00 Date Seen: 09/07/23 Principal diagnosis: Status post left knee replacement Interval history: Fadia is comfortable this morning at rest. She states her knee has been buckling. Ortho Exam Const Vital Signs, click to edit/add: Vital Signs - 24 hr 09/06/23 11:06 09/06/23 11:59 09/06/23 12:05 Temperature 97.4 F L Pulse Rate 72 67 69 Pulse Rate [Pulse Oximeter] Respiratory Rate 16 16 16 Blood Pressure 137/58 L 133/61 120/47 L Blood Pressure [Right Arm] Pulse Oximetry 97 97 97 Oxygen Delivery Method Room Air Nasal Cannula Nasal Cannula Oxygen Flow Rate 2 2 09/06/23 12:10 09/06/23 15:00 09/06/23 15:05 Temperature 97.8 F Pulse Rate 68 64 61 Pulse Rate [Pulse Oximeter] Respiratory Rate 16 14 14 Blood Pressure 120/50 L 108/50 L 100/48 L Blood Pressure [Right Arm] Pulse Oximetry 97 95 95 Oxygen Delivery Method Nasal Cannula Room Air Room Air Oxygen Flow Rate 2 09/06/23 15:10 09/06/23 15:15 09/06/23 15:20 Temperature Pulse Rate 60 60 60 Pulse Rate [Pulse Oximeter] Respiratory Rate 14 14 14 Blood Pressure 105/57 L 114/55 L 123/49 L Blood Pressure [Right Arm] Pulse Oximetry 96 94 96 Oxygen Delivery Method Room Air Room Air Room Air Oxygen Flow Rate 09/06/23 15:25 09/06/23 15:30 09/06/23 15:40 Temperature 97.8 F 97.0 F L Pulse Rate 62 61 Pulse Rate [Pulse Oximeter] 59 L Respiratory Rate 14 14 16 Blood Pressure 113/55 L 113/58 L Blood Pressure [Right Arm] 112/54 L Pulse Oximetry 94 94 98 Oxygen Delivery Method Room Air Room Air Room Air Oxygen Flow Rate 09/06/23 16:00 09/06/23 16:11 09/06/23 16:15 Temperature 97.0 F L 97.0 F L 97.1 F L Pulse Rate 59 L Pulse Rate [Pulse Oximeter] 62 64 Respiratory Rate 18 16 17 Blood Pressure Blood Pressure [Right Arm] 119/61 112/54 L 98/52 L Pulse Oximetry 96 97 Oxygen Delivery Method Room Air Room Air Room Air Oxygen Flow Rate 09/06/23 16:30 09/06/23 16:45 09/06/23 17:15 Temperature 96.7 F L 97.3 F L 97.4 F L Pulse Rate Pulse Rate [Pulse Oximeter] 64 61 64 Respiratory Rate 18 18 18 Blood Pressure Blood Pressure [Right Arm] 97/50 L 135/51 L 136/64 Pulse Oximetry 95 97 98 Oxygen Delivery Method Room Air Room Air Room Air Oxygen Flow Rate 2 09/06/23 17:45 09/06/23 18:45 09/06/23 19:45 Temperature 96.4 F L 97.1 F L 97.4 F L Pulse Rate Pulse Rate [Pulse Oximeter] 65 73 78 Respiratory Rate 18 16 16 Blood Pressure Blood Pressure [Right Arm] 161/101 H 106/45 L 124/92 H Pulse Oximetry 97 95 98 Oxygen Delivery Method Room Air Room Air Room Air Oxygen Flow Rate 09/06/23 20:45 09/06/23 21:45 09/06/23 23:35 Temperature 96.8 F L 96.4 F L Pulse Rate Pulse Rate [Pulse Oximeter] 66 66 55 L Respiratory Rate 16 16 Blood Pressure Blood Pressure [Right Arm] 125/67 112/64 Pulse Oximetry 94 94 Oxygen Delivery Method Room Air Room Air Oxygen Flow Rate 09/06/23 23:35 09/07/23 04:20 09/07/23 07:45 Temperature 98.0 F 97.6 F 97.2 F L Pulse Rate Pulse Rate [Pulse Oximeter] 73 55 L 67 Respiratory Rate 16 16 18 Blood Pressure Blood Pressure [Right Arm] 116/49 L 110/48 L 113/50 L Pulse Oximetry 94 90 95 Oxygen Delivery Method Room Air Room Air CPAP Oxygen Flow Rate 09/07/23 07:45 Temperature Pulse Rate Pulse Rate [Pulse Oximeter] 67 Respiratory Rate 18 Blood Pressure Blood Pressure [Right Arm] Pulse Oximetry Oxygen Delivery Method Oxygen Flow Rate
--- NOTE | 2023-09-07 10:33 | PM.ORPN ---
Subjective Subjective Time Seen by Provider: 10:33 Date Seen: 09/07/23 Principal diagnosis: Status post left knee replacement Interval history: Coco is comfortable this morning at rest. She states that her knee has been buckling. She will discharge to home today. Her Scott is with her. Ortho Exam Narrative Exam Narrative: Alert and oriented x3. Patient is in no acute distress. Converses without labored breathing. Hearing is grossly intact. Ambulates with a walker. Examination of the left knee shows very minimal soft tissue edema. Minimal effusion is palpable. Dressing is in place. CMS intact left lower extremity. She is able to straight leg raise and lift the leg 1 in off the bed. Quad strength is 4/5. Bilateral calves are soft and nontender. Const Vital Signs, click to edit/add: Vital Signs - 24 hr 09/06/23 11:06 09/06/23 11:59 09/06/23 12:05 Temperature 97.4 F L Pulse Rate 72 67 69 Pulse Rate [Pulse Oximeter] Respiratory Rate 16 16 16 Blood Pressure 137/58 L 133/61 120/47 L Blood Pressure [Right Arm] Pulse Oximetry 97 97 97 Oxygen Delivery Method Room Air Nasal Cannula Nasal Cannula Oxygen Flow Rate 2 2 09/06/23 12:10 09/06/23 15:00 09/06/23 15:05 Temperature 97.8 F Pulse Rate 68 64 61 Pulse Rate [Pulse Oximeter] Respiratory Rate 16 14 14 Blood Pressure 120/50 L 108/50 L 100/48 L Blood Pressure [Right Arm] Pulse Oximetry 97 95 95 Oxygen Delivery Method Nasal Cannula Room Air Room Air Oxygen Flow Rate 2 09/06/23 15:10 09/06/23 15:15 09/06/23 15:20 Temperature Pulse Rate 60 60 60 Pulse Rate [Pulse Oximeter] Respiratory Rate 14 14 14 Blood Pressure 105/57 L 114/55 L 123/49 L Blood Pressure [Right Arm] Pulse Oximetry 96 94 96 Oxygen Delivery Method Room Air Room Air Room Air Oxygen Flow Rate 09/06/23 15:25 09/06/23 15:30 09/06/23 15:40 Temperature 97.8 F 97.0 F L Pulse Rate 62 61 Pulse Rate [Pulse Oximeter] 59 L Respiratory Rate 14 14 16 Blood Pressure 113/55 L 113/58 L Blood Pressure [Right Arm] 112/54 L Pulse Oximetry 94 94 98 Oxygen Delivery Method Room Air Room Air Room Air Oxygen Flow Rate 09/06/23 16:00 09/06/23 16:11 09/06/23 16:15 Temperature 97.0 F L 97.0 F L 97.1 F L Pulse Rate 59 L Pulse Rate [Pulse Oximeter] 62 64 Respiratory Rate 18 16 17 Blood Pressure Blood Pressure [Right Arm] 119/61 112/54 L 98/52 L Pulse Oximetry 96 97 Oxygen Delivery Method Room Air Room Air Room Air Oxygen Flow Rate 09/06/23 16:30 09/06/23 16:45 09/06/23 17:15 Temperature 96.7 F L 97.3 F L 97.4 F L Pulse Rate Pulse Rate [Pulse Oximeter] 64 61 64 Respiratory Rate 18 18 18 Blood Pressure Blood Pressure [Right Arm] 97/50 L 135/51 L 136/64 Pulse Oximetry 95 97 98 Oxygen Delivery Method Room Air Room Air Room Air Oxygen Flow Rate 2 09/06/23 17:45 09/06/23 18:45 09/06/23 19:45 Temperature 96.4 F L 97.1 F L 97.4 F L Pulse Rate Pulse Rate [Pulse Oximeter] 65 73 78 Respiratory Rate 18 16 16 Blood Pressure Blood Pressure [Right Arm] 161/101 H 106/45 L 124/92 H Pulse Oximetry 97 95 98 Oxygen Delivery Method Room Air Room Air Room Air Oxygen Flow Rate 09/06/23 20:45 09/06/23 21:45 09/06/23 23:35 Temperature 96.8 F L 96.4 F L Pulse Rate Pulse Rate [Pulse Oximeter] 66 66 55 L Respiratory Rate 16 16 Blood Pressure Blood Pressure [Right Arm] 125/67 112/64 Pulse Oximetry 94 94 Oxygen Delivery Method Room Air Room Air Oxygen Flow Rate 09/06/23 23:35 09/07/23 04:20 09/07/23 07:45 Temperature 98.0 F 97.6 F 97.2 F L Pulse Rate Pulse Rate [Pulse Oximeter] 73 55 L 67 Respiratory Rate 16 16 18 Blood Pressure Blood Pressure [Right Arm] 116/49 L 110/48 L 113/50 L Pulse Oximetry 94 90 95 Oxygen Delivery Method Room Air Room Air CPAP Oxygen Flow Rate 09/07/23 07:45 Temperature Pulse Rate Pulse Rate [Pulse Oximeter] 67 Respiratory Rate 18 Blood Pressure Blood Pressure [Right Arm] Pulse Oximetry Oxygen Delivery Method Oxygen Flow Rate Assessment and Plan Assessment and plan (1) Status post total left knee replacement: Problem details: Dr. Grubbs Status: Acute Assessment and Plan: Physical therapy and nursing is notified that the patient since is knee buckling. She will not be able to leave until this has resolved. Will see how she does with physical therapy. I cannot appreciate decreased quad function in the supine position. Plan for discharge is today to home if they meet discharge criteria. DVT prophylaxis includes Eliquis, compression stockings or Yordan bandages x1 month may remove for 1 hr per day, frequent ambulation Remove dressing in 1 week. Observe wound and phone Orthopedics with any questions or concerns Return to clinic in 1 week for a wound check Return to clinic in 6 weeks with surgeon Minimize narcotic use. Wean off and discontinue soon as possible. Activities as tolerated. No strenuous activity. Outpatient physical therapy as scheduled. Ice and elevate the operative extremity. No restriction on ice. Note, dictation performed with voice recognition, and as a result, wrong word or sound like substitutions may have occurred. There may be areas in the script that have gone on detected. Please consider this when interpreting information found in the chart.
--- NOTE | 2023-09-07 11:36 | PC.NURSE ---
discharge. pt has been very pleasant . Pt alert and oriented x3. Afebrile. Pt reports 4-6/10 pain in left knee,po pain meds given. cryo cuff on and off. silva to leg was off this am and later pt had her maria del rosario sock placed by OT. . Pt's left knee dressing is C/D/I. Pt is up A1 with walker and gait belt. Pt is eating drinking and voiding, passing gas, tolerating a regular diet. S: was d/c intact. went over discharge packet with pt and . pt curry over and signed personal belonging sheet. she got a w/c ride out with all belongs and paperwork
== END 2023-09-07 11:20 | disposition home or self-care (01) ==
LOC: OR 10:45 → MEDSURG 10:49
PROVIDERS: PCP Surgery; Visit Provider Orthopaedic Surgery
PROC: (CPT 27447; principal; 2023-09-06 12:15)
DX: M17.12 Unilateral primary osteoarthritis, left knee (principal); G89.18 Other acute postprocedural pain; G47.33 Obstructive sleep apnea (adult) (pediatric); I48.91 Unspecified atrial fibrillation; Z79.01 Long term (current) use of anticoagulants; Z86.711 Personal history of pulmonary embolism; I11.0 Hypertensive heart disease with heart failure; I50.30 Unspecified diastolic (congestive) heart failure; E66.01 Morbid (severe) obesity due to excess calories; Z68.43 Body mass index [BMI] 50.0-59.9, adult
CPT/HCPCS: 27447; 01402; 36415; 64447; 64454; 73560; 76942; 82565; 84132; 84295; 84520; 85025; 85610; 97110; 97162; 97166; 97530; 97535; A9270; C1776; J0690; J1100; J1170; J1200; J2250; J2371; J2405; J2704; J2795; J3010; J7120

== ENCOUNTER 2023-11-04 13:45 | Outpatient (RCR) | payer MEDICARE, BC, SELFPAY ==
--- NOTE | 2023-09-08 13:10 | PT.OPEX ---
PT [place] Outpatient Eval PT [facility] Outpatient Eval Start: 09/08/23 10:05 Freq: Status: Active Protocol: Document 09/08/23 11:12 JEFF (Rec: 09/08/23 13:07 JEFF [id number]) E-signed By Jeane Her DPT Physical Therapy Outpatient Evaluation Insurance Information Recert Due Date 12/07/23 Insurance Name Medicare B Medical Diagnosis s/p L TKA 09/06/23 Treating Diagnosis s/p L TKA 09/06/23 with L knee pain, impaired L knee ROM, impaired L knee/LE mobility/ strength, limping/antalgic gait using FWW Subjective Subjective Patient reports chronic L knee pain leading up to L TKA 09/06. She d/c home from the hospital yesterday. Reports getting around ok at home with her FWW. Spouse is assisting at home as needed. Patient states she hasn't had much time yet to do the HEP but she is getting them in some. Using pain meds and tylenol regularly. Pain range 3-8/10. She is icing regularly. Slept ok last night, interrupted some. Has follow up with PANDA Smith next week in [place]. Date of Last Physician Visit 09/07/23 Date of Surgery (If applicable) 09/06/23 Precautions Treatment Precautions/Contraindications hx R TKA Assessment Assessment/Impression Patient is a 68 year old female s/p L TKA 09/06/23 with L knee pain, impaired L knee ROM, impaired L knee/LE mobility/strength, limping/ antalgic gait using FWW. Pain range 3-8/10. Patient is using pain meds and tylenol regularly. Icing regularly. Amb with FWW with slow, step through gait, limping/antalgic after L TKA. Patient with weak L quad set. Performed SAQ, LAQ, SLR with assist. Reviewed HEP, L knee ext/flex stretching. Spouse present for PT session. Patient with prior R TKA the fall of last year. She is wearing her compression socks but not able to pull them all the way up yet. Dressing in place of L TKA incision. Patient has follow up with PANDA Smith next week to remove dressing. Reviewed TKA exercises. Patient to continue with her HEP. She would benefit from skilled PT for pain/sx management, improved L knee ROM, improved L knee/LE mobility/strength, improved transfers, improved gait, and establishment of HEP. Plan of Care Rehabilitation Potential Good Physical Therapy Goals 1. Decrease L knee pain to less than/equal to 3/10 with daily activities and with the progression of PT activities over the next 4-6 weeks. 2. Improve L knee ROM to 0- 115 degrees or greater over the next 6-8 weeks for return to functional knee ROM and improved gait mechanics. 3. Improve L knee/LE mobility /strength over the next 8-10 weeks for return to transfers with ease, return to extended standing/ walking for ADLs/household activities, and for improved gait mechanics with/without AD. 4. Patient will be I with HEP within 10 weeks for progression toward above goals, ongoing self-management of pain/swelling, ongoing self improvements in L knee ROM/strength and for return to normal gait with/ without AD. Coordination/Communication With Referral Source Treatment Plan/Direct Interventions Gait Training,Manual Therapy, Therapeutic Exercises Frequency/Duration 2x/week Patient Will Be Discharged From Therapy Completion of LTG(s),Skills Plateau,Independent w/HEP, Independently Progressing Evaluation Billing Untimed Code Treatment Minutes 14 Complexity Moderate Certification Information Initial Certification Date 09/08/23 Ending Certification Date 12/07/23 Provider Signature Shows Agreement With POC & Medical Necessity Physician Signature & Date Requested Please Sign/Date Here Physician Comment/Change : Physician NPI Number #
== END 2024-03-03 23:59 | disposition home or self-care (01) ==
PROVIDERS: PCP Surgery; Visit Provider Orthopaedic Surgery
DX: M17.12 Unilateral primary osteoarthritis, left knee (principal); Z51.89 Encounter for other specified aftercare
CPT/HCPCS: 97110; 97116; 97162; J0690; J1100; J2371; J2405; J2704

== ENCOUNTER 2024-04-23 11:00 | Outpatient (RCR) | payer MEDICARE, BC, SELFPAY | END 2024-08-21 23:59 | disposition home or self-care (01) | PROVIDERS: PCP Surgery; Visit Provider Physician Assistant | DX: M54.50 Low back pain, unspecified (principal); R29.898 Other symptoms and signs involving the musculoskeletal system; R53.1 Weakness; Z51.89 Encounter for other specified aftercare | CPT/HCPCS: 97110; 97140; 97162 ==

== ENCOUNTER 2024-06-26 08:19 | Outpatient (RCR) | payer MEDICARE, BC, SELFPAY ==
[2024-06-26] MEDS: REGADENOSON 0.4 MG/5 ML SYRINGE IVP (09:39)
[2024-06-26 09:40] VITALS: BP 133/58; PULSE 69; RESP 18
[2024-06-26] MEDS: SODIUM CHLORIDE 0.9 % (FLUSH) 10 ML SYRINGE IVF (09:40)
--- NOTE | 2024-06-26 11:19 | W.PM.STED ---
Stress Test Note Date Date Seen: 06/26/24 Date of test: 06/26/24 Providers Primary care provider: Bart Lara Stress test physician: Edward Aviles Stress Test Note Stress test ordered: Lexiscan Indication for test: Atrial fibrillation shortness of breath Stress test medicine: Lexiscan Results discussion: The very nice lady presents for the above test after discussion the risks benefits and side effects she would like to proceed. Cardiac stress test medical history form is reviewed in detail. Pretest EKG shows what appears to be controlled atrial fibrillation with a ventricular rate of 69 and a blood pressure [address] wave changes are noted. Lexiscan walking protocol was used for a duration of 5 minutes, her maximum it was 109, which [place] 5% of the max, her maximum blood pressure was 133 and 58, she did not have any symptoms of chest pain shortness of breath or any other typical or atypical anginal symptoms, she tolerated the infusion very well with no complaints review of the tracing is done, there is no significant ST wave changes, during either exercise or recovery. Impression: Negative electrographic portion of Lexiscan, she remained in atrial fibrillation controlled Follow up suggested: Await nuclear review, clinical correlation with this will be needed, she left this testing facility in excellent condition
== END 2024-06-26 11:05 | disposition home or self-care (01) ==
LOC: STRESS 08:19
PROVIDERS: PCP Surgery; Visit Provider Internal Medicine
DX: I48.19 Other persistent atrial fibrillation (principal)
CPT/HCPCS: 78452; 93016; 93017; A9500; J2785

== ENCOUNTER 2024-08-20 17:22 | Emergency (ER) | payer MEDICARE, BC, SELFPAY ==
--- OUTSIDE RECORDS SUMMARY | 2024-08-20 17:24 | XMS_ITS | Clinical Summary ---
Author Organization [employer] Address [address] [place] [address] [address] [place] [address] Care Team Providers Care Professional Volleyball Player Name Role Phone Provider, No Attributed RESOURCE Unavailable Unavailable Allergies Active Allergy Reactions Criticality Noted Date Comments Cephalexin Other (Specify in Comments) 10/06/2005 Yeast infections Yeast infections Unknown reaction, patient cannot remember Diatrizoate Unknown/Not Verified 02/06/2019 Per patient, requires premedication prior to CT contrast exposure Erythromycin Nausea 10/06/2005 Cramping Tears up my stomach Formaldehyde Rash 04/06/2019 Found in soaps; so patient has to be careful which soaps she uses. Iodine Rash 08/29/2015 Burning Latex Rash 10/06/2005 skin breakdown skin breakdown Lisinopril Cough,Other (Specify in Comments) 01/29/2016 cough Morphine Itching 08/29/2015 Prednisone Edema,Other (Specify in Comments) 10/06/2005 Swelling and bloating with mcc use Swelling and bloating with mcc use Sulfa Drugs Rash Low 10/06/2005 Medications amLODIPine (NORVASC) 5 mg tablet Take 5 mg by mouth 1 time per day 9 Active apixaban (ELIQUIS) 2.5 MG tablet Take 2.5 mg by mouth 2 times a day 8 Active cetirizine (ZYRTEC ALLERGY) 10 mg tablet Take 10 mg by mouth 1 time per day 9 Active cholecalcifero l (VITAMIN D3) 2000 units CAPS capsule Take 2,000 Units by mouth 1 time per day 6 Active clobetasol propionate (TEMOVATE) 0.05 % cream Apply topically 9 Active HYDROcodone-ac etaminophen (NORCO) 5-325 mg tablet Take 1 tablet by mouth as needed 8 Active losartan 100 mg tablet Take 100 mg by mouth 1 time per day 9 Active torsemide (DEMADEX) 20 mg tablet Take 20 mg by mouth 1 time per day 3 9 Active omeprazole (PRILOSEC) 40 mg capsule Take 40 mg by mouth 1 time per day 9 Active potassium chloride (K-TAB) 20 MEQ CR tablet Take 20 mEq by mouth 1 time per day 8 Active rosuvastatin (CRESTOR) 5 mg tablet Take 5 mg by mouth every night at bedtime 9 Active Sharps Container ([id number]-[id number] R LOCKING BRACKET) MISC CPAP, heated humidifier,nasal pillows,chin strap if needed, filters and tubing. For home use. Pressure auto 5-15 Length of Need:99 4 Active Sharps Container ([id number] R LOCKING BRACKET) MISC 20-30 mm/Hg calf thigh high compression stockings - Venous insufficiency 9 Active tolterodine (DETROL-LA) 4 mg capsule Take 4 mg by mouth 1 time per day 8 Active triamcinolone acetonide (KENALOG,ARIST OCORT) 0.1 % cream APPLY TOPICALLY TO AFFECTED AREA(S) 2 TIMES DAILY 1 9 Active cephalexin (KEFLEX) 500 mg capsuleIndicat ions:Celluliti s of left lower extremity Take 1 capsule (500 mg) by mouth Every 12 hours 10 capsule 9 Active fluconazole (DIFLUCAN) 150 mg tabletIndicati ons:Cellulitis of left lower extremity Take 1 tablet (150 mg) by mouth Every 3 days 3 tablet 9 Active Active Problems Problem Noted Date Diagnosed Date Celiac disease ([facility]) 04/06/2019 Esophageal reflux 04/06/2019 Overview (04/06/2019): EGD 02/2011 reflux Myalgia and myositis 04/06/2019 Overview (04/06/2019): Fibromyalgia Paroxysmal supraventricular tachycardia 04/06/20 19 Overview (04/06/2019): 11/26/05 w/ Dr. Hines: S/P 1. EPS, including isoproterenol provocation. 2. Mapping & ablation of the posterior input to the AV junction for typical slow-fast AV node reentry. We did use Stereotaxis. Pulmonary embolism 04/06/2019 Overview (04/06/2019): 2003 w/ admit to [facility] - placed on a/c resulting in abdominal hemorrhage s/p IVC filter S/P IVC filter 10/17/2018 Lymphocytosis 06/26/2018 Urinary urgency 05/09/2017 Primary osteoarthritis of both knees 01/26/2017 Overview (04/06/2019): March 2017: Ultrasound guided synvisc left knee. Leg wound, left 10/04/2016 Bilateral lower extremity edema 06/15/2016 Lymphedema 06/15/2016 Morbid obesity with body mass index of 50.0-59.9 in adult 04/10/2016 Essential hypertension 04/17/2015 CARLOS (obstructive sleep apnea) 02/20/2015 Pulmonary nodule 09/18/2014 Fibromyalgia 06/14/2014 Screen for colon cancer 09/23/2009 Overview (04/06/2019): Colonoscopy 09/2009 diverticulosis repeat in 10 years Colonoscopy 02/2016 Diverticulosis, internal hemorrhoids repeat in 10 years Impaired fasting glucose 08/18/2007 Immunizations Immunization Administration Dates Next Due Influenza Trivalent w/preserv 06/29/2008, 006 FLU VACCINE SINGLE DOSE 0.5mL(6MO+Fluzone/Flulaval/Fluarix,3Y R+Afluria) 06/26/2018 TD,adsorbed, 7 years and up 05/12/2005 TDAP 05/10/2013 Versed 02/18/2011,02/28/2007 Zoster Live(Zostavax) 07/09/2014 Zoster Recombinant (Shingrix) 12/06/2018 ,11/29/2018,09/25/2018,2018 Social History Tobacco Use Types Packs/Day Years Used Date Smoking Tobacco: Never Smokeless Tobacco: Never Alcohol Use Standard Drinks/Week Comments Yes 0 (1 standard drink = 0.6 oz pur e alcohol) AUDIT-C Answer Date Recorded Frequency of Alcohol Consumption 2-3 times a wee k 04/06/2019 Average Number of Drinks 1 or 2 019 Frequency of Binge Drinking Not on file 03/16 PHQ-2 Answer Date Recorded PHQ-2 Total 0 04/06/2019 Sexually Active Control Partners Comments Yes Male Comments No Sex and Gender Information Value Date Recorded Sex Assigned at Not on file Legal Sex Female 10:49 AM CDT Gender Identity Not on file Sexual Orientation Not on file Last Filed Vital Signs Vital Sign Reading Time Taken Comments Blood Pressure 132/80 04/06/2019 2:18 PM CDT Pulse 80 04/06/2019 2:18 PM CDT Temperature 37.4 C (99.4 F) 04/06/2019 2:18 PM CDT Respiratory Rate 18 04/06/2019 2:18 PM CDT Oxygen Saturation - - Inhaled Oxygen Concentration - - Weight 154.7 kg (341 lb 1.6 oz) 04/06/2019 2:18 PM CDT Height - - Body Mass Index - - Plan of Treatment Health Maintenance Due Date Last Done Comments Hepatitis C Screening 1954 Microalbumin 1954 Mammogram 1994 Colorectal Cancer Screening 1999 Pneumococcal Vaccine 50yr + (1 of 1 - PCV) 2004 [employer] Directive document 2019 DEXA/Heel Scan 2019 Diabetes Screening 02/05/2022 02/05/2019, 0 01/09/2019, 06/26/2018, Additional history exists TDAP/TD VACCINE (2 - Td or Tdap) 05/10/2023 05/10/2013, 05/12/2005 Lipid Screening 01/10/2024 01/09/2019 Covid-19 Vaccine (1 - 2023- season) 2024 Influenza Vaccine (#1) 2024 8, 06/29/2008, 06/13/2006 RSV Vaccine, Adult (1 - 1-dose 75+ series) 2029 Zoster Vaccine Completed 12/06/2018, 11/13, 09/25/2018, Additional history exists Hepatitis B Vaccine Aged Out No longe r eligible based on patient's age to complete this topic Care Teams Professional Volleyball Player Relationship Specialty Start Date End Date Provider, No Attributed, RESOURCE [address] PCP - Attributed Provider 07/09/21
--- OUTSIDE RECORDS SUMMARY | 2024-08-20 17:24 | XMS_ITS | Clinical Summary ---
Author Organization [facility] Address [address] [place] [id number] Care Team Providers Care Metal Cleaner Name Role Phone Nguyễn Abbott Jay Primary Care Provider [phone] Allergies Active Allergy Reactions Criticality Noted Date Comments Erythromycin GI Disturbance 08/29/2015 Iodine 08/29/2015 Burning Cephalexin 08/29/2015 Yeast infections Latex 08/29/2015 skin breakdown Lisinopril Cough 12/07/2017 Morphine Itching 08/29/2015 Prednisone 08/29/2015 Swelling and bloating with longterm use Sulfa Antibiotics Rash Low 08/29/2015 Medications Benjamin-3 Fatty Acids (OMEGA-3 FISH OIL PO) Take 2 capsules by mouth daily Active VITAMIN D, CHOLECALCIFERO L, PO Take 2,000 Units by mouth daily Active Cyanocobalamin (VITAMIN B-12 PO) Take 1,000 mcg by mouth daily Active GLUCOSAMINE-CH ONDROITIN PO Take 3 tablets by mouth daily Active Apixaban (ELIQUIS PO) Take 2.5 mg by mouth 2 times daily Active Mirabegron (MYRBETRIQ PO) Take 50 mg by mouth daily Active Furosemide (LASIX PO) Take 40 mg by mouth daily Active Potassium Chloride Graciela ER (K-DUR PO) Take 20 mEq by mouth daily Active Acetaminophen (TYLENOL PO) Take 1,000 mg by mouth 4 times daily as needed for mild pain or fever Active albuterol (PROAIR HFA/PROVENTIL HFA/VENTOLIN HFA) 108 (90 Base) MCG/ACT Inhaler Inhale 2 puffs into the lungs every 6 hours as needed for shortness of breath / dyspnea or wheezing Active triamcinolone (KENALOG) 0.1 % cream Apply topically 2 times daily as needed for irritation Active fluocinonide (LIDEX) 0.05 % cream Apply topically 2 times daily as needed Active erythromycin (ROMYCIN) ophthalmic ointmentIndica tions:Postoper ative eye state Apply to skin incisions three times daily and into the eye at bedtime. 3.5 g 8 Active HYDROcodone-ac etaminophen (NORCO) 5-325 MG per tabletIndicati ons:Postoperat yuliya eye state Take 1 tablet by mouth every 6 hours as needed for pain Maximum of 4000 mg of acetaminophen in 24 hours. 10 tablet 8 Active Social History Tobacco Use Types Packs/Day Years Used Date Smoking Tobacco: Former Cigarettes Q uit: 08/15/1994 Smokeless Tobacco: Never Alcohol Use Standard Drinks/Week Comments Yes 0 (1 standard drink = 0.6 oz pur e alcohol) 10-12/week Adolescent Education Answer Date Record ed Getting School Help Needed Not on file 05/29 Comments No Sex and Gender Information Value Date Recorded Sex Assigned at Not on file Legal Sex Female 4:38 AM [employer]DU[employer] Gender Identity Not on file Sexual Orientation Not on file Last Filed Vital Signs Vital Sign Reading Time Taken Comments Blood Pressure 161/82 12/08/2017 3:51 PM CDT Pulse - - Temperature 36.3 C (97.4 F) 12/08/2017 3:00 PM CDT Respiratory Rate 20 12/08/2017 3:51 PM CDT [...] DEXA 1954 FIT 1954 FLEX SIG 1954 sDNA (Cologuard) 1954 COLONOSCOPY 1964 COLORECTAL CANCER SCREENING 1964 HEPATITIS C SCREENING 1972 LIPID 1994 LUNG CANCER SCREENING 03/18/2016 03/18/2015 GLUCOSE 09/04/2018 09/04/2015 FALL RISK ASSESSMENT 2019 DTAP/TDAP/TD IMMUNIZATION (2 - Td or Tdap) 05/10/2023 05/10/2013, 05/12/2005 PHQ-2 (once per calendar year) 2023 COVID-19 Vaccine ( - 2023- season) 2024 06/11/2021, 11/06/2020, 10/09/2020 INFLUENZA VACCINE (#1) 2024 , 06/10/2022, 04/24/2021, Additional history exists MAMMO SCREENING 07/26/2025 07/26/2023, 07/15, 04/28/2022, Additional history exists RSV VACCINE (1 - 1-dose 75+ series) 2029 ZOSTER IMMUNIZATION Completed 12/06/2018, 11/29/2018, 09/25/2018, Additional history exists Pneumococcal Vaccine: 50+ Years Completed 05/16/2020, 05/01/2019 HPV IMMUNIZATION Aged Out No longer e ligible based on patient's age to complete this topic MENINGITIS IMMUNIZATION Aged Out No l onger eligible based on patient's age to complete this topic RSV MONOCLONAL ANTIBODY Aged Out No l onger eligible based on patient's age to complete this topic Procedures Procedure Name Priority Date/Time Associated Diagnosis Comments GLUCOSE BY METER Routine 09/04/2015 1:18 PM [employer]DU[employer]CHESTRA from Last 3 Months or Most Recently Relevant to Health Maintenance Results * (ABNORMAL) Glucose by meter (09/04/2015 1:18 PM [employer]CHE[employer]) Glucose 110(H) 70 - 99 mg/dL POINT OF CARE TEST, GLUCOSE 09/04/2015 1:18 PM [employer]CHESTRA 09/04/2015 1:20 PM [employer]CHESTRA Ankit Randle MD [facility] POCT Final Re sult POINT OF CARE TEST, GLUCOSE from Last 3 Months or Most Recently Relevant to Health Maintenance Insurance [facility] Care Teams Metal Cleaner Relationship Specialty Start Date End Date Nguyễn Abbott PCP - General Family Practice 08/29/15
--- OUTSIDE RECORDS SUMMARY | 2024-08-20 17:24 | XMS_ITS | Clinical Summary ---
Author Organization [email or web address] [facility] Address [place], [place] [address] Care Team Providers Care Volcanology Teacher Name Role Phone Bart Lara MD Primary Care Provider [phone] Prudence Kinney DO Unavailable [phone] Allergies Active Allergy Reactions Criticality Noted Date [...] Edema,Flushing High 10/06/2005 Swelling and bloating with snf use Other reaction(s): BLOATING Sulfa (Sulfonamide Antibiotics) Rash Low 10/06/2005 Medications cyanocobalamin (VITAMIN B12) 500 mcg tabletIndications: B12 [...] in 24 hrs. 90 tablet 3 05/30/20 20 Active hydrocortisone (ANUSOL-HC) 2.5 % rectal creamIndications:H [...] a full face cushion x1/mo 1 Each 07/04/20 23 Active sennosides (SENNA) 8.6 mg tabletIndications: Constipation, acute Take 1 Tablet (8.6 mg) by mouth two times daily. 180 Tablet 3 07/26/20 23 Active losartan (COZAAR) 100 mg tabletIndications: Essential hypertension Take 1 Tablet (100 mg) by mouth once daily. 90 Tablet 3 08/29/19 24 Active omeprazole (PRILOSEC) 40 mg Delayed-Release capsuleIndications :Incarcerated hernia Take 1 Capsule (40 mg) by mouth once daily before a meal. 90 Capsule 3 08/29/19 24 Active rosuvastatin (CRESTOR) 5 mg tabletIndications: Hyperlipidemia, unspecified hyperlipidemia type Take 1 Tablet (5 mg) by mouth at bedtime. 90 Tablet 3 08/29/19 24 Active tolterodine (DETROL LA) 4 mg Extended-Release capsuleIndications :Urinary frequency Take 1 Capsule (4 mg) by mouth once daily. 90 Capsule 3 09/17/19 24 Active traMADoL (ULTRAM) 50 mg tabletIndications: Degenerative disc disease, lumbar,Lumbar foraminal stenosis Take 1 Tablet (50 mg) by mouth every 6 hours if needed for Pain. 28 Tablet 02/21/20 24 Active torsemide (DEMADEX) 20 mg tabletIndications: Bilateral lower extremity edema Pt states taking 40mg one day, 20 mg the next. Alternates every other day 06/18/20 24 Active flecainide (TAMBOCOR) 50 mg tabletIndications: Persistent atrial fibrillation (HC) Take 1.5 Tablets (75 mg) by mouth every 12 hours. 270 Tablet 3 06/18/20 24 Active metoprolol succinate (TOPROL XL) 25 mg Sustained-Release tabletIndications: Longstanding persistent atrial fibrillation (HC) Take 1 Tablet (25 mg) by mouth once daily. 90 Tablet 3 06/18/20 24 Active chlorthalidone (HYGROTON) 25 mg tabletIndications: Essential hypertension Take 1 Tablet (25 mg) by mouth once daily in the morning. 90 Tablet 07/01/20 24 Active apixaban (Eliquis) 5 mg tabletIndications: Hx pulmonary embolism Take 1 Tablet (5 mg) by mouth two times daily. 60 Tablet 11 07/12/20 24 Active Active Problems Problem Noted Date Diagnosed Date Status post right knee replacement 07/26/2023 Lymphocytosis 05/22/2023 Overview (05/22/2023): Present for years. She has seen hematology in 2017 and no further evaluation recommended unless absolute lymph count > 09157 or significant anemia or thrombocytopenia Grade II diastolic dysfunction 06/15/2020 Overview (06/15/2020): Echo 06/13/2020 Longstanding persistent atrial fibrillation 01/14 Pulmonary embolism 04/06/2019 Overview (02/08/2020): 2004 w/ admit to [facility] - placed on a/c resulting in abdominal hemorrhage s/p IVC filter, now removed S/P IVC filter 10/17/2018 Overview (02/08/2020): IVC filter removed 2019 Urinary urgency 05/09/2017 Overview (08/29/2023): Has seen Urology - Detrol didn't help Bilateral lower extremity edema 06/15/2016 Morbid obesity with BMI of 50.0-59.9, adult 03/16 Unspecified essential hypertension 04/17/2015 CARLOS 01/02/2015 AHI-11, REM-35 02/20/2015 Pulmonary nodule 09/18/2014 Overview (07/08/2020): Stable on CT 2014 - no further evaluation needed Fibromyalgia 06/14/2014 Screen for colon cancer 09/23/2009 Overview (02/18/2016): Colonoscopy 09/2009 diverticulosis repeat in 10 years Colonoscopy 02/2016 Diverticulosis, internal hemorrhoids repeat in 10 years Esophageal reflux Overview (08/29/2023): EGD 02/2011 reflux - on omeprazole Celiac disease Resolved Problems Problem Noted Date Diagnosed Date Resolved Date Knee pain 07/26/2023 08/29/2023 Osteoarthritis of left knee 07/26/2023 08/29/2023 Degenerative joint disease of knee, right 07/26/2023 08/29/2023 Incarcerated hernia 02/08/2020 07/09/20 Venous ulcer, limited to breakdown of skin 08/27/2019 04/24/2021 Leg wound, left 05/22/2019 07/09/2020 Lymphocytosis 06/26/2018 02/08/2020 Primary osteoarthritis of both knees 01/26/2017 08/29/2023 Overview (04/13/2017): March 2017: Ultrasound guided synvisc left knee. Leg wound, left 10/04/2016 08/27/2019 Leg wound, right 06/15/2016 10/04/2016 Leg wound, left 06/15/2016 07/27/2016 Lymphedema 06/15/2016 08/27/2019 Impaired fasting glucose 08/18/2007 Paroxysmal supraventricular tachycardia 08/27/2019 Overview (12/06/2006): 11/26/05 w/ Dr. Hines: S/P 1. EPS, including isoproterenol provocation. 2. Mapping & ablation of the posterior input to the AV junction for typical slow-fast AV node reentry. We did use Stereotaxis. Myalgia and myositis, unspecified 08/27/2019 Overview (08/19/2010): Fibromyalgia Encounters Date Type Department Care Team Description 08/20/[address] [facility] [address] [place] [address] Bart Lara MD Leg Swelling 08/03/2024 2:40 PM LOG YARD DERRICK OPERATOR Ancillary Procedure [facility] [address] [place] [address] 08/03/2024 Travel 08/03/[address] [facility] [address] [place] [address] Bart Lara MD Error-please disregard 08/02/2024 Telephone [facility] [address] [place] [id number] Alban Perez MD Medication Management 07/26/2024 Telephone [facility] [address] [place] [address] Alban Perez MD Results 07/16/[address] [facility] [address] [place] [address] Bart Lara MD Refill Request (torsemide (DEMADEX) 20 mg tablet/) 07/16/[address] [facility] [address] [place] [address] Alban Perez MD Refill Request (Torsemide) 07/13/2024 Telephone [facility] [address] [place] [address] Alban Perez MD Results (NM stress test results.) 07/09/[address] [facility] [address] [place] [address] Bart Lara MD Prior Authorization (Eliquis 5 mg tablet *Tier Exception* DENIED ) 07/04/[address] [facility] [address] [place] [address] Bart Lara MD Medication Management 06/27/[address] [facility] [address] [place] [address] Bart Lara MD Refill Request (Chlorthalidone) 06/26/2024 8:30 AM LOG YARD DERRICK OPERATOR Ancillary Procedure [facility] [address] [place] [address] 06/22/2024 11:30 AM LOG YARD DERRICK OPERATOR Office Visit [facility] [address] [place] [address] Jeannette Galvez PA UTI 06/22/2024 Orders Only [address] [address] Carolina Cheatham RN <No scans attached> 06/22/2024 Orders Only [address] [address] Jeannette Galvez PA Lab 06/22/2024 Orders Only [address] [address] Jeannette Galvez PA Lab 06/22/2024 Travel 06/22/[address] [facility] [address] [place] [address] Bart Lara MD Urinary Problem 06/18/2024 1:00 PM LOG YARD DERRICK OPERATOR Orders Only [facility] [place] [address] [place] [address] [place] [address] 1 scan: (1-Ord) ECHO TTE COMPLETE WO CONTRAST ([id number]) 06/18/2024 10:27 AM LOG YARD DERRICK OPERATOR - 06/18/2024 11:59 PM LOG YARD DERRICK OPERATOR Hospital Encounter [address] [place] [address] Persistent atrial fibrillation (HC) 06/18/2024 9:30 AM LOG YARD DERRICK OPERATOR Office Visit [facility] [address] [facility] [address] [place] [id number] Alban Perez MD Follow Up (Annual F/U. Pt states feeling very SOB today. She has noticed an increase in episodes where she feels pounding/irregular heartbeat, lightheaded/dizzy, and felt like she really wanted to burp but couldn't. No current cardiac symptoms) 06/18/2024 Orders Only [address] [place] [address] [place] [address] Alban Perez MD 1 scan: (1-Ord) [facility] 06/18/2024 Travel from Last 3 Months Immunizations Name Administration [...] drink = 0.6 oz pur e alcohol) [facility] Utilities Answer Date Recorded Do you have trouble paying f or utilities (for example, heat, electricity, water, phone)? Yes 06/22/2024 PHQ-2 Answer Date Recorded PHQ-2 TOTAL SCORE 0 08/29/2023 Social Connections Answer Date Recorded Do you often feel lonely or isolated from those around you? 0 06/22/2024 Alcohol Use Answer Date Recorded How often do you have a drink containing alcohol ? 2 09/14/2021 How many drinks containing a lcohol do you have on a typical day when you are drinking? 0 09/14/2021 How often do you have five or more drinks on one occasion? 0 09/14/2021 Financial Resource Strain Answer Date R ecorded Difficulty of Paying Living Expenses 3 06/22/2024 Difficulty of Paying Living Expenses Not on file 06/22/2024 Food Insecurity Answer Date Recorded Do you worry your food will run out before you are able to buy more? 1 06/22/2024 Transportation Needs Answer Date Record ed Does lack of transportation keep you from medica l appointments? 1 06/22/2024 Does lack of transportation keep you from work, meetings or getting things that you need? 1 06/22/2024 Housing Stability Answer Date Recorded What is your housing situation today? 1 06/22/2024 Comments No Sex and Gender Information Value Date Recorded Sex Assigned at Not on file Legal Sex Female 5:24 AM LOG YARD DERRICK OPERATOR Gender Identity Not on file Sexual Orientation Not on file Obstetrics History Para Term AB IAB SAB Ectopic Multiple Livin g Live Births 3 2 2 2 2 Date Outcome GA Total Labor Labor/2nd/3rd Weight Sex Type Anes PTL Sujata A1 A5 Name Clin 1977 Term M Vag Living 1982 Term F Vag Living Last Filed Vital Signs Vital Sign Reading Time Taken Comments Blood Pressure 154/77 06/22/2024 11:36 AM LOG YARD DERRICK OPERATOR Pulse 77 06/22/2024 11:36 AM LOG YARD DERRICK OPERATOR Temperature 36.6 C (97.8 F) 06/22/2024 11:36 AM LOG YARD DERRICK OPERATOR Respiratory Rate 20 05/28/2023 10:3 3 AM CDT Oxygen Saturation 95% 06/22/2024 11: 36 AM LOG YARD DERRICK OPERATOR Inhaled Oxygen Concentration - - Weight 153.1 kg (337 lb 9.6 oz) 024 11:36 AM LOG YARD DERRICK OPERATOR Height 165.1 cm (5' 5) 06/18/2024 9:48 AM LOG YARD DERRICK OPERATOR Body Mass Index 56.18 06/18/2024 9:48 AM LOG YARD DERRICK OPERATOR Plan of Treatment Upcoming Encounters Date Type Department Care Team (Late st Contact Info) Description 08/21/2024 8:00 AM LOG YARD DERRICK OPERATOR Office [facility] [address] [place] [address] Bart Lara MD [address] [place] [address] 08/22/2024 11:00 AM LOG YARD DERRICK OPERATOR Office [facility] [address] [place] [address] Lg Bassett MD [address] [place] [address] 09/06/2024 11:30 AM LOG YARD DERRICK OPERATOR Office [facility] [address] [place] [address] Bart Lara MD [address] [place] [address] 07/01/2025 11:00 AM LOG YARD DERRICK OPERATOR Office Visit [facility] [place] [facility] [address] [facility] [address] [place] [address] Alban Perez MD [address] [facility] [address] [place] [address] Health Maintenance Due Date Last Done Comments RSV vaccine for adults or (1 - Risk 60-74 years 1-dose series) 2014 Tetanus booster 05/10/2023 05/10/2013, 05/12/2005 Influenza for age 65+ 04/15/2024 05/17/2023 , 06/10/2022, 04/24/2021, Additional history exists Depression screening for age 12+ 08/29/2024 08/29/2023, 08/17/2022, 08/17/2022, Additional history exists Medicare Wellness for age 65+ 08/29/2024, 08/17/2022, 08/14/2021, Additional history exists BMI (ht and wt on same day) for age 18+ 06/18/2025 06/18/2024, 08/29/2023, 04/11/2023, Additional history exists Mammogram for age 45-75 08/03/2025 08/03/20 24, 07/26/2023, 04/28/2022, Additional history exists Colonoscopy through age 75 02/17/202602/17, 02/11/2016, 09/23/2009, Additional history exists Lipids for age 45-75 08/29/2028 08/29/2023, 08/17/2022, 08/14/2021, Additional history exists Tdap Completed 05/10/2013 Hepatitis C screening for ag e 18-79 Completed 06/24/2016, 06/14/2014 Zoster (shingles) series for age 50+ Completed 11/29/2018, 09/18/2018, 07/09/2014 DEXA/DXA scan for age 65+ Completed 07/24/2019, Pneumococcal series for age 50+ Completed 0, 05/01/2019 COVID-19 vaccine series Completed 06/12/20 24, 06/10/2023, 08/03/2022, Additional history exists Medical Devices Implanted Type Area Community Service Worker Device Identifier Shelf Expiration Date Model / Serial / Lot Repair Elevate Post - [id number] Implanted:Qty: 1 on 12/17/2009 at [facility] N/A: Pelvis [place] [employer] 05/29/2012 [id number] # / [id number] / Description:please see impla nt sheet. Mesh Ventral 05f55sf Ventralight St W/Echo2 - [id number] Implanted:Qty: 1 on 05/23/2020 by Levi Renae MD at [facility] Right: Abdomen [employer] 01/09/2021 [id number] / / [id number] Mesh Ventral 15cm Ventralight St W/Echo2 - [id number] Implanted:Qty: 1 on 05/23/2020 by Levi Renae MD at [facility] [employer] 01/09/2021 [id number] / / [id number] Procedures Procedure Name Priority Date/Time Associated Diagnosis Comments XR MAMMO JUDD BILAT SCREEN Routine 08/03/2024 3:01 PM LOG YARD DERRICK OPERATOR Visit for screening mammogram SCAN-EVENT MONITOR 07/10/2024 12 :00 AM LOG YARD DERRICK OPERATOR NM CARDIAC MPI STRESS TEST ANABEL 06/26/2024 1:24 PM LOG YARD DERRICK OPERATOR Persistent atrial fibrillation (HC) Bilateral lower extremity edema Chronic diastolic (congestive) heart failure (HC) CARLOS 01/02/2015 AHI-11, REM-35 Morbid obesity with BMI of 50.0-59.9, adult (HC) Essential hypertension HEMOGLOBIN A1C MONITORING (POCT) Routine 06/22/2024 12:16 PM LOG YARD DERRICK OPERATOR Prediabetes GLUCOSE, FASTING Routine 06/22/2024 11:5 5 AM LOG YARD DERRICK OPERATOR Prediabetes URINE CULTURE Routine 06/22/2024 11:51 AM LOG YARD DERRICK OPERATOR Lower urinary tract symptoms (LUTS) URINALYSIS MICROSCOPIC Routine 06/22/2024 11:51 AM LOG YARD DERRICK OPERATOR Lower urinary tract symptoms (LUTS) URINALYSIS MACROSCOPIC - [facility] ONLY POC DIP (QUEST) Routine 06/22/2024 11:50 AM LOG YARD DERRICK OPERATOR Lower urinary tract symptoms (LUTS) ECHO TTE COMPLETE WO CONTRAST ANABEL 06/18/2024 1:33 PM LOG YARD DERRICK OPERATOR Persistent atrial fibrillation (HC) CREATININE Today 06/18/2024 10:50 AM LOG YARD DERRICK OPERATOR Persistent atrial fibrillation (HC) BUN Today 06/18/2024 10:50 AM LOG YARD DERRICK OPERATOR Persistent atrial fibrillation (HC) ALT (SGPT) Today 06/18/2024 10:50 AM LOG YARD DERRICK OPERATOR Persistent atrial fibrillation (HC) AST (SGOT) Today 06/18/2024 10:50 AM LOG YARD DERRICK OPERATOR Persistent atrial fibrillation (HC) EKG 12 LEAD Routine 06/18/2024 9:36 AM LOG YARD DERRICK OPERATOR Persistent atrial fibrillation (HC) EXTENDED HOLTER Routine 06/18/2024 Persistent atrial fibrillation (HC) LIPID PANEL Add On 08/29/2023 2:34 PM LOG YARD DERRICK OPERATOR Hypertension XR DXA BONE DENSITY 2 SITES AXIAL Routine 07/24/2019 10:00 AM LOG YARD DERRICK OPERATOR Asymptomatic menopausal state ANTI HCV Routine 06/24/2016 8:30 AM LOG YARD DERRICK OPERATOR Need for hepatitis C screening test from Last 3 Months or Most Recently Relevant to Health Maintenance Results * XR MAMMO JUDD BILAT SCREEN (08/03/2024 3:01 PM LOG YARD DERRICK OPERATOR) Anatomical Region Laterality Modality BREASTS, Breast Left, Breast Right Bilateral Mammography Impressions 08/03/2024 3:54 PM LOG YARD DERRICK OPERATOR There is no radiographic evidence for malignancy. Recommend annual mammograms. MAMMOGRAM ASSESSMENT: ACR 1 Negative PATIENTS: You will also receive a letter with your examination results in an easy to read format. If you have questions about your results, please contact your referring provider. Narrative 08/03/2024 3:54 PM LOG YARD DERRICK OPERATOR For Patients: As a result of the Century Cures Act, medical imaging exams and procedure reports are released immediately into your electronic medical record. You may view this report before your referring provider. If you have questions, please contact your health care provider. XR MAMMO JUDD BILAT SCREEN [[id number]] CLINICAL HISTORY: This is an asymptomatic 69 y.o. patient. INDICATION FOR EXAM: Mammogram Screening. TECHNIQUE: CC & MLO views were obtained. This study was evaluated with the assistance of Computer-Aided Detection. Breast Tomosynthesis was used in interpretation. COMPARISON FILM: Yes 07/26/23 [facility] 04/28/22 [facility] FINDINGS: There are scattered areas of fibroglandular density. There are no dominant masses, suspicious micro calcifications or areas of architectural distortion. us Bart Lara MD MAMMO Final Resu lt * SCAN-EVENT MONITOR (07/10/2024 12:00 AM LOG YARD DERRICK OPERATOR) us Scanner OTHER Final Result * NM CARDIAC MPI STRESS TEST (06/26/2024 1:24 PM LOG YARD DERRICK OPERATOR) Anatomical Region Laterality Modality HEART Ultrasound 06/21/2024 8:39 AM LOG YARD DERRICK OPERATOR Narrative 07/11/2024 9:23 AM LOG YARD DERRICK OPERATOR Toll -free: [phone] [email or web address] MYOCARDIAL PERFUSION IMAGING REPORT REST/STRESS SINGLE ISOTOPE GATED SPECT IMAGING. Patient Name: COCO VANCE Gender: F Height: 65 in Weight: 332 lb Study Date: 06/21/2024 8:39:31 AM BSA: 2.45 m : 1955 69 years BMI: 55.25 kg/m Ord. Prov.: ALBAN PEREZ Monitoring Prov.: Daltno Aviles [facility] Clinical History: Chest pain, nausea and palpitations. No known coronary artery disease. Cardiac Risk Factors: Hypertension, obesity, hypercholesterolemia and former smoker. Other Symptomatology: PVD. Cholecystectomy. Sleep apnea. Cardiac History: Abnormal ECG - atrial fibrillation. Beta vahe/calcium channel vahe/nitrate taken today: Unknown. Caffeine/methylxanthine taken within 12 hrs: No. Chest pain/discomfort at baseline: No. IMPRESSION 1. Myocardial perfusion was normal. 2. See separate report for EKG intrepretation. 3. Overall left ventricular systolic function was normal without wall motion abnormalities. The post stress LVEF was calculated to be 74 %. 4. Left ventricular cavity size was normal (resting EDV 126 ml). 5. There were no prior studies available for comparison. 6. If a future perfusion study is warranted, consider cardiac PET because of patient's body habitus. STRESS MPI PROCEDURE The patient was studied utilizing a two day rest/stress protocol. Myocardial perfusion imaging was performed at rest, 20 minutes following the intravenous injection of 40.3 mCi of 99mTc sestamibi. On the second day, 30 seconds after the 15 second IV regadenoson injection, the patient was injected via IV with 40.1 mCi of 99mTc sestamibi. Gated post-stress tomographic imaging was performed 85 minutes after stress. After image acquisition was completed, data was reconstructed in short, horizontal long and vertical long axis views and tomographic slices were generated. - Pharmacologic stress testing was performed with an IV regadenoson dose of 0.4 mg. - Low level exercise consisting of walking on treadmill at 0.8 mph with a 0% grade was performed for 1 minute prior to, during, and 2 minutes after the vasodilator infusion. - Resting heart rate was 69 bpm, peak heart rate was 109 bpm. - Resting blood pressure was 147 mmHg/73 mmHg; peak blood pressure was 133 mmHg/58 mmHg. - The patient developed symptoms which included shortness of breath and dizziness. FINDINGS Imaging - The overall quality of the study was good. Computerized motion correction was not applied. - SPECT perfusion images were normal without evidence of ischemia or infarction. - Computer processed gated imaging revealed normal left ventricular size with a calculated LVEF of 74 %. (Lab normals: LVEF >50%, LV Size <150 ml). - There was normal post-stress myocardial thickening and wall motion. - The right ventricle was not visualized. - There was no evidence of abnormal lung or extracardiac activity. - If a future perfusion study is warranted, consider cardiac PET because of patient's body habitus. - Risk/extent of ischemia per ACC Noninvasive Risk Stratification Guideline: LOW RISK. This study was interpreted and electronically signed by Doroteo Lee MD on 06/26/2024 3:47:06 PM. Final (Updated) Procedure Note Doroteo Lee MD - 07/11/2024 Toll -free: [phone] [email or web address] MYOCARDIAL PERFUSION IMAGING REPORT REST/STRESS SINGLE ISOTOPE GATED SPECT IMAGING. Patient Name: COCO VANCE Gender: F Height: 65 in Weight: 332 lb Study Date: 06/21/2024 8:39:31 AM BSA: 2.45m : 1955 69 years BMI: 55.25kg/m Ord. Prov.: ALBAN YEAGER PEREZ Monitoring Prov.: Dalton [facility]iles [facility] Clinical History: Chest pain, nausea and palpitations. No knowncoronary artery disease. Cardiac Risk Factors: Hypertension, obesity, hypercholesterolemia andformer smoker. Other Symptomatology: PVD. Cholecystectomy. Sleep apnea. Cardiac History: Abnormal ECG - atrial fibrillation. Beta vahe/calcium channel vahe/nitrate taken today: Unknown. Caffeine/methylxanthine taken within 12 hrs: No. Chest pain/discomfort at baseline: No. IMPRESSION 1. Myocardial perfusion was normal. 2. See separate report for EKG intrepretation. 3. Overall left ventricular systolic function was normal without wallmotion abnormalities. The post stress LVEF was calculated to be 74 %. 4. Left ventricular cavity size was normal (resting EDV 126 ml). 5. There were no prior studies available for comparison. 6. If a future perfusion study is warranted, consider cardiac PET becauseof patient's body habitus. STRESS MPI PROCEDURE The patient was studied utilizing a two day rest/stress protocol.Myocardial perfusion imaging was performed at rest, 20 minutes followingthe intravenous injection of 40.3 mCi of 99mTc sestamibi. On the secondday, 30 seconds after the 15 second IV regadenoson injection, the patientwas injected via IV with 40.1 mCi of 99mTc sestamibi. Gated post-stresstomographic imaging was performed 85 minutes after stress. After imageacquisition was completed, data was reconstructed in short, horizontallong and vertical long axis views and tomographic slices were generated. - Pharmacologic stress testing was performed with an IV regadenoson doseof 0.4 mg. - Low level exercise consisting of walking on treadmill at 0.8 mph with a0% grade was performed for 1 minute prior to, during, and 2 minutes afterthe vasodilator infusion. - Resting heart rate was 69 bpm, peak heart rate was 109 bpm. - Resting blood pressure was 147 mmHg/73 mmHg; peak blood pressure ntp513 mmHg/58 mmHg. - The patient developed symptoms which included shortness of breath and dizziness. FINDINGS Imaging - The overall quality of the study was good. Computerized motioncorrection was not applied. - SPECT perfusion images were normal without evidence of ischemia orinfarction. - Computer processed gated imaging revealed normal left ventricular sizewith a calculated LVEF of 74 %. (Lab normals: LVEF >50%, LV Size <150 ml). - There was normal post-stress myocardial thickening and wall motion. - The right ventricle was not visualized. - There was no evidence of abnormal lung or extracardiac activity. - If a future perfusion study is warranted, consider cardiac PET becauseof patient's body habitus. - Risk/extent of ischemia per ACC Noninvasive Risk StratificationGuideline: LOW RISK. This study was interpreted and electronically signed by Doroteo Lee MD on06/26/2024 3:47:06 PM. Final (Updated) Alban Perez MD [place] Result - Final * (ABNORMAL) HEMOGLOBIN A1C MONITORING POCT (06/22/2024 12:16 PM LOG YARD DERRICK OPERATOR) POC HEMOGLOBIN A1C 6.0(H) <6.0 % OF TOTAL HGB [facility] Comment: Any point of care results exhibiting inconsistency with the patient's clinical status should be repeated using a different testing method. Blood BLOOD SPECIMEN / Unknown 06/22/2024 12:16 PM LOG YARD DERRICK OPERATOR 06/22/2024 12:17 PM LOG YARD DERRICK OPERATOR Jeannette MOSQUEDA CHEMISTRY Final Result [facility] [address] [place] [address], [facility] [address] [place] [address] * (ABNORMAL) GLUCOSE, FASTING (06/22/2024 11:55 AM LOG YARD DERRICK OPERATOR) GLUCOSE 105(H) 65 - 99 mg/dL [facility] Comment: Fasting reference interval For someone without known diabetes, a glucose value between 100 and 125 mg/dL is consistent with prediabetes and should be confirmed with a follow-up test. Blood BLOOD SPECIMEN / Unknown 06/22/2024 11:55 AM LOG YARD DERRICK OPERATOR 06/22/2024 11:57 AM LOG YARD DERRICK OPERATOR Narrative [facility] - 06/23/2024 5:46 AM LOG YARD DERRICK OPERATOR SPLIT 06/22/2024 FROM [id number] us Jeannette MOSQUEDA CHEMISTRY Final Result [address] [facility] [address] [place] [address], [facility] [address] [place] [address] * (ABNORMAL) URINALYSIS MICROSCOPIC (06/22/2024 11:51 AM LOG YARD DERRICK OPERATOR) WBC UA 20-40(A) < OR = 5 /HPF [facility] RBC UA NONE SEEN < OR = 2 /HPF [facility] SQUAMOUS EPITHELIAL CELLS UA 10-20(A) < OR = 5 /HPF [facility] BACTERIA UA MANY(A) NONE SEEN /HPF [facility] HYALINE CAST NONE SEEN NONE SEEN /LPF [facility] NOTE UA [facility] Comment: This urine was analyzed for the presence of WBC, RBC, bacteria, casts, and other formed elements. Only those elements seen were reported. Urine URINE SPECIMEN / Unknown 06/22/2024 11:51 AM LOG YARD DERRICK OPERATOR 06/22/2024 11:52 AM LOG YARD DERRICK OPERATOR Narrative [facility] - 06/23/2024 3:40 AM LOG YARD DERRICK OPERATOR COLLECTION KIT GIVEN TO PATIENT. PATIENT ADVISED TO RETURN. us Jeannette MOSQUEDA URINE Final Result [address] [facility] [address] [place] [address], [facility] [address] [place] [address] * (ABNORMAL) URINE CULTURE (06/22/2024 11:51 AM LOG YARD DERRICK OPERATOR) Pathologist [facility] CULTURE, URINE, ROUTINE SEE NOTE(A) [employer] Comment: CULTURE, URINE, ROUTINE Micro Number: [id number] Test Status: Final Specimen Source: Urine Specimen Quality: Adequate Result: Greater than 100,000 CFU/mL of Klebsiella pneumoniae K.pneumoniae INT GALLITO AMOX/CLAVULANATE S <=2 AMP/SULBACTAM S 4 CEFAZOLIN NR <=4 2 CEFEPIME S <=0.12 CEFTAZIDIME S <=1 CEFTRIAXONE S <=0.25 CIPROFLOXACIN S <=0.06 GENTAMICIN S <=1 IMIPENEM S <=0.25 LEVOFLOXACIN S <=0.12 MEROPENEM S <=0.25 NITROFURANTOIN I 64 PIP/TAZOBACTAM S <=4 TRIMETHOPRIM/SULFA S <=20 S = Susceptible I = Intermediate R = Resistant NS = Not susceptible SDD = Susceptible Dose Dependent * = Not Tested NR = Not Reported NN = See Therapy Comments THERAPY COMMENTS Note 1: For infections other than uncomplicated UTI caused by E. coli, K. pneumoniae or P. mirabilis: Cefazolin is resistant if GALLITO > or = 8 mcg/mL. (Distinguishing susceptible versus intermediate for isolates with GALLITO < or = 4 mcg/mL requires additional testing.) Note 2: For uncomplicated UTI caused by E. coli, K. pneumoniae or P. mirabilis: Cefazolin is susceptible if GALLITO <32 mcg/mL and predicts susceptible to the oral agents cefaclor, cefdinir, cefpodoxime, cefprozil, cefuroxime, cephalexin and loracarbef. Urine URINE SPECIMEN / Unknown 06/22/2024 11:51 AM LOG YARD DERRICK OPERATOR 06/22/2024 11:52 AM LOG YARD DERRICK OPERATOR Narrative [facility] - 06/25/2024 4:35 AM LOG YARD DERRICK OPERATOR COLLECTION KIT GIVEN TO PATIENT. PATIENT ADVISED TO RETURN. us Jeannette MOSQUEDA MICROBIOLOGY Final Result Performing Organization Address [facility] Co de Phone Number [facility] [address] [place] [address], [place] [phone] [facility] [address] [place] [address] * (ABNORMAL) POCT Urinalysis Dipstick Only (06/22/2024 11:50 AM LOG YARD DERRICK OPERATOR) Pathologist [facility] PH 7.0 5.0 - 8.0 [facility] SPECIFIC GRAVITY 1.015 1.001 - 1.035 [facility] GLUCOSE NEGATIVE NEGATIVE [facility] BILIRUBIN NEGATIVE NEGATIVE [facility] KETONES NEGATIVE NEGATIVE [facility] OCCULT BLOOD NEGATIVE NEGATIVE [facility] PROTEIN NEGATIVE NEGATIVE [facility] NITRITE POSITIVE(A) NEGATIVE [facility] LEUKOCYTE ESTERASE 1+(A) NEGATIVE [facility] Urine URINE SPECIMEN / Unknown 06/22/2024 11:50 AM LOG YARD DERRICK OPERATOR 06/22/2024 11:50 AM LOG YARD DERRICK OPERATOR us Jeannette MOSQUEDA URINE Final Result Performing Organization Address [facility] Co de Phone Number [facility] [address] [place] [address], [facility] [address] [place] [address] * ECHO TTE COMPLETE WO CONTRAST (06/18/2024 1:33 PM LOG YARD DERRICK OPERATOR) AORTIC VALVE MEAN PG 15 mmHg EJECTION FRACTION 78 % LVEDD 5.3 cm EJECTION FRACTION 70 - 75% Anatomical Region Laterality Modality Ultrasound 06/18/2024 1:56 PM LOG YARD DERRICK OPERATOR Narrative 06/18/2024 3:52 PM LOG YARD DERRICK OPERATOR ECHOCARDIOGRAM COCO VANCE : 1955 69 years Study Date: 06/18/2024 1:56:22 PM Gender: F BP: 0/0 mmHg Height: 165.00 cm BSA: 2.47 m Weight: 153.00 kg Tech: B Referring MD: ALBAN PEREZ [facility]: [facility] Patient Location: Procedure: 2D, Color Doppler and Spectral Doppler. Indication for study: A-FIB Cardiac Rhythm: Normal sinus.Study quality: Excellent. Final Impressions: 1. Normal LV size, mildly increased wall thickness, normal global systolic function with an estimated EF of 70 - 75%. 2. Right ventricular cavity size is normal, global systolic RV function is normal. 3. Severely enlarged left atrium. 4. The aortic valve is trileaflet and calcified, mild stenosis (Vmax 2.7 mmHg, MG 15 mmHg) and no regurgitation. 5. The mitral valve is sclerotic with a mean gradient of 3 mmHg at 67 bpm and trace mitral regurgitation. Comparison Compared to prior exam of 06/13/20: - Aortic valve gradient has increased slightly - Elevated PA pressure noted on prior echo, though insufficient TR on today's study to estimate. Chamber Sizes and Function Normal left ventricular size, mildly increased wall thickness, normal global systolic function with an estimated EF of 70 - 75%. No resting regional wall motion abnormality visualized. Left atrial size is severely enlarged. Right ventricular cavity size is normal, global systolic RV function is normal. RV wall thickness is normal. The right atrium is normal. Right atrial volume index is 23 ml/m . Right atrial area is 19 cm . The pulmonary artery is of normal size and origin. The sinus of Valsalva is normal sized. The ascending aorta is normal sized. Valves, RV Pressures and Diastolic Function The aortic valve is trileaflet and calcified, mild stenosis and no regurgitation. The mitral valve is sclerotic, trace mitral regurgitation. Mitral annular calcification is present. Indeterminate pattern of LV diastolic filling. The tricuspid valve is normal in structure. Tricuspid regurgitation is trace regurgitation. The pulmonic valve is normal. No pulmonary regurgitation. Masses, Effusion, Shunts There is no pericardial effusion. The inferior vena cava is not well visualized, respiratory size variation not well visualized. Interatrial septum is not well visualized. MEASUREMENTS AND CALCULATIONS 2-D Measurements and LV Function: LVID (d) 5.3 cm LV FS% (2D) 45 % LVID (s) 2.9 cm LVOT diameter 2.2 cm IVS (d) 1.2 cm HR 74 bpm LVPW (d) 1.0 cm LA Vol index 49 ml/m2 Ao Sinus 3.2 cm RA Vol index 23 ml/m2 Asc Ao 3.3 cm RA area 19 cm LA 5.0 cm RV Max 4C (d) 4.4 cm Diastology: Mitral Tissue Doppler E Peak 1.5 m/s e', Septum 0.09 m/s A Peak 0.9 m/s e', Lateral 0.08 m/s E/A 1.7 E/e' Average 18.40 DT 206 msec Aortic Valve: Vmax 2.7 m/s BRENNAN (V) 2.44 cm VTI 0.59 m BRENNAN (I) 2.43 cm LVOT V max 1.7 m/s Max PG 29 mmHg LVOT VTI 0.38 m Mean PG 15 mmHg SV 144 ml Dim Index 0.63 SV index 58 ml/m CO 10.6 l/min CI 4.3 l/min/m Mitral Valve: MVA 3.7 cm MV P 1/2 60 msec MV Mean G 3 mmHg MV VTI 0.46 m Tricuspid Valve and estimated PA pressures: TAPSE 2.7 cm . This study was interpreted by an [facility] accredited facility. Final Procedure Note Espinoza Rothman MD - 06/18/2024 ECHOCARDIOGRAM COCO VANCE : 1955 69 years Study Date: 06/18/2024 1:56:22 PM Gender: F BP: 0/0 mmHg Height: 165.00 cm BSA: 2.47 m Weight: 153.00 kg Tech: RMB Referring MD: ALBAN PEREZ Site: [facility] Bre Lockhart Reading Location: [facility] Patient Location: Procedure: 2D, Color Doppler and Spectral Doppler. Indication for study: A-FIB Cardiac Rhythm: Normal sinus.Study quality: Excellent. Final Impressions: 1. Normal LV size, mildly increased wall thickness, normal globalsystolic function with an estimated EF of 70 - 75%. 2. Right ventricular cavity size is normal, global systolic RV functionis normal. 3. Severely enlarged left atrium. 4. The aortic valve is trileaflet and calcified, mild stenosis (Vmax 2.7mmHg, MG 15 mmHg) and no regurgitation. 5. The mitral valve is sclerotic with a mean gradient of 3 mmHg at 67 bpmand trace mitral regurgitation. Comparison Compared to prior exam of 06/13/20: - Aortic valve gradient has increased slightly - Elevated PA pressure noted on prior echo, though insufficient TR ontoday's study to estimate. Chamber Sizes and Function Normal left ventricular size, mildly increased wall thickness, normalglobal systolic function with an estimated EF of 70 - 75%. No restingregional wall motion abnormality visualized. Left atrial size is severelyenlarged. Right ventricular cavity size is normal, global systolic RVfunction is normal. RV wall thickness is normal. The right atrium isnormal. Right atrial volume index is 23 ml/m . Right atrial area is 19cm . The pulmonary artery is of normal size and origin. The sinus ofValsalva is normal sized. The ascending aorta is normal sized. Valves, RV Pressures and Diastolic Function The aortic valve is trileaflet and calcified, mild stenosis and noregurgitation. The mitral valve is sclerotic, trace mitral regurgitation.Mitral annular calcification is present. Indeterminate pattern of LVdiastolic filling. The tricuspid valve is normal in structure. Tricuspidregurgitation is trace regurgitation. The pulmonic valve is normal. Nopulmonary regurgitation. Masses, Effusion, Shunts There is no pericardial effusion. The inferior vena cava is not wellvisualized, respiratory size variation not well visualized. Interatrialseptum is not well visualized. MEASUREMENTS AND CALCULATIONS 2-D Measurements and LV Function: LVID (d) 5.3 cm LV FS% (2D) 45 % LVID (s) 2.9 cm LVOT diameter 2.2 cm IVS (d) 1.2 cm HR 74 bpm LVPW (d) 1.0 cm LA Vol index 49 ml/m2 Ao Sinus 3.2 cm RA Vol index 23 ml/m2 Asc Ao 3.3 cm RA area 19 cm LA 5.0 cm RV Max 4C (d) 4.4 cm Diastology: Mitral Tissue Doppler E Peak 1.5 m/s e', Septum 0.09 m/s A Peak 0.9 m/s e', Lateral 0.08 m/s E/A 1.7 E/e' Average 18.40 DT 206 msec Aortic Valve: Vmax 2.7 m/s BRENNAN (V) 2.44 cm VTI 0.59 m BRENNAN (I) 2.43 cm LVOT V max 1.7 m/s Max PG 29 mmHg LVOT VTI 0.38 m Mean PG 15 mmHg SV 144 ml Dim Index 0.63 SV index 58 ml/m CO 10.6 l/min CI 4.3 l/min/m Mitral Valve: MVA 3.7 cm MV P 1/2 60 msec MV Mean G 3 mmHg MV VTI 0.46 m Tricuspid Valve and estimated PA pressures: TAPSE 2.7 cm . This study was interpreted by an [facility] accredited facility. Final Alban Perez MD ECHO ORD Fin al Result * (ABNORMAL) BUN (06/18/2024 10:50 AM LOG YARD DERRICK OPERATOR) BUN 35(H) 8 - 23 mg/dL 06/18/2024 11:13 AM LOG YARD DERRICK OPERATOR [facility] Blood BLOOD SPECIMEN / Unknown Venipuncture / Unknown 06/18/2024 10:50 AM LOG YARD DERRICK OPERATOR 06/18/2024 10:50 AM LOG YARD DERRICK OPERATOR Alban Perez MD CHEMISTRY Fin al Result [facility] [address] [place] [address] * (ABNORMAL) CREATININE (06/18/2024 10:50 AM LOG YARD DERRICK OPERATOR) eGFR 39(L) >90 mL/min/1.7 3m2 06/18/2024 11:13 AM LOG YARD DERRICK OPERATOR [facility] Comment:As of 2021, eG FR is calculated by the CKD-EPI creatinine equation without race adjustment. eGFR can be influenced by muscle mass, exercise, and diet. The reported eGFR is an estimation only and is only applicable if the renal function is stable. CREATININE 1.46(H) 0.50 - 0.90 mg/dL 06/18/2024 11:13 AM LOG YARD DERRICK OPERATOR [facility] Blood BLOOD SPECIMEN / Unknown Venipuncture / Unknown 06/18/2024 10:50 AM LOG YARD DERRICK OPERATOR 06/18/2024 10:50 AM LOG YARD DERRICK OPERATOR us Alban Perez MD CHEMISTRY Fin al Result Performing Organization Address City/[facility] [place] [address] * (ABNORMAL) ALT (SGPT) (06/18/2024 10:50 AM LOG YARD DERRICK OPERATOR) ALT (SGPT) 8(L) 10 - 35 IU/L 06/18/2024 11:13 AM LOG YARD DERRICK OPERATOR [facility] Blood BLOOD SPECIMEN / Unknown Venipuncture / Unknown 06/18/2024 10:50 AM LOG YARD DERRICK OPERATOR 06/18/2024 10:50 AM LOG YARD DERRICK OPERATOR us Alban Perez MD CHEMISTRY Fin al Result Performing Organization Address City/[facility]/[place] [address] * AST (SGOT) (06/18/2024 10:50 AM LOG YARD DERRICK OPERATOR) AST (SGOT) 16 10 - 35 IU/L 06/18/2024 11:13 AM LOG YARD DERRICK OPERATOR [facility] Blood BLOOD SPECIMEN / Unknown Venipuncture / Unknown 06/18/2024 10:50 AM LOG YARD DERRICK OPERATOR 06/18/2024 10:50 AM LOG YARD DERRICK OPERATOR us Alban Perez MD CHEMISTRY Fin al Result [facility] [address] [place] [address] * EKG 12 LEAD (06/18/2024 9:36 AM LOG YARD DERRICK OPERATOR) Interpretation sinus rhythm Low voltage QRS QTcB >= 480 msec Abnormal ECG When compared with ECG of 14-Dec-2022 15:56, Junctional rhythm has replaced Sinus rhythm Ventricular Rate 70 BPM Atrial Rate BPM P-R Interval 240 ms QRS Duration 102 ms QT 450 ms QTc 486 ms P [place] degrees R [place] 88 degrees T [place] 62 degrees 06/18/2024 9:36 AM LOG YARD DERRICK OPERATOR 06/23/2024 9:05 PM LOG YARD DERRICK OPERATOR Alban Perez MD EKG ORD Fin al Result * ZIO PATCH XT - weekly to monthly symptoms. (06/18/2024) 06/18/2024 Narrative Kenan Hernandez MD - 07/17/2024 12:00 AM LOG YARD DERRICK OPERATOR NSR with Atrial fib 2% of the time with a small increase in the average rate of 101 bpm. Symptoms were associated with AF. Longest lasting 7 hours. NSVT (8 episodes) more likely than aberrancy with 4 beats at 176 bpm. . Please see scan document for full report. Signed By Kenan Hernandez MD Procedure Note Kenan Hernandez MD - 07/17/2024 NSR with Atrial fib 2% of the time with a small increase in the averagerate of 101 bpm. Symptoms were associated with AF. Longest lasting 7hours. NSVT (8 episodes) more likely than aberrancy with 4 beats at 176bpm. . Please see scan document for full report. Signed By Kenan Hernandez MD us Alban Perez MD CARDIAC SERVICES OR D Edited Result - Final * (ABNORMAL) LIPID PANEL (08/29/2023 2:34 PM LOG YARD DERRICK OPERATOR) CHOLESTEROL,TOTAL 155 100 - 199 mg/dL 08/29/2023 11:33 PM LOG YARD DERRICK OPERATOR [facility] Comment: Cholesterol, Total Reference Ranges Desirable <200 mg/dL Borderline 200-239 mg/dL High >=240 mg/dL TRIGLYCERIDES 206(H) <150 mg/dL 08/29/2023 11:33 PM LOG YARD DERRICK OPERATOR [facility] HDL CHOLESTEROL 57 >40 mg/dL 11:33 PM LOG YARD DERRICK OPERATOR [facility] NON-HDL CHOLESTEROL 98 <145 mg/dl 08/29/2023 11:33 PM LOG YARD DERRICK OPERATOR [facility] CHOL/HDL RATIO 2.72 <4.50 08/29/2023 11:33 PM LOG YARD DERRICK OPERATOR [facility] LDL CHOLESTEROL 57 <=130 mg/dL 08/29/2023 11:33 PM LOG YARD DERRICK OPERATOR [facility] VLDL CHOLESTEROL 41(H) <=30 mg/dL 08/29/2023 11:33 PM LOG YARD DERRICK OPERATOR [facility] Blood BLOOD SPECIMEN / Unknown Venipuncture / Unknown 08/29/2023 2:34 PM LOG YARD DERRICK OPERATOR 08/29/2023 2:35 PM LOG YARD DERRICK OPERATOR Bart Lara MD CHEMISTRY Final Resu lt [facility] [address] [address], * (ABNORMAL) XR DXA BONE DENSITY 2 SITES AXIAL (07/24/2019 10:00 AM LOG YARD DERRICK OPERATOR) Anatomical Region Laterality Modality Spine, HIPS, HIPL, HIPR Other Narrative 07/27/2019 9:25 AM LOG YARD DERRICK OPERATOR Please see scanned document for results of this study. Bart Lara MD DEXA Final Resu lt * ANTI HCV (06/24/2016 8:30 AM LOG YARD DERRICK OPERATOR) HEPATITIS C ANTIBODY Non-Reacti ve Non-Reacti ve 06/24/2016 2:20 PM LOG YARD DERRICK OPERATOR [facility] Blood BLOOD SPECIMEN / Unknown Venipuncture / Unknown 06/24/2016 8:30 AM LOG YARD DERRICK OPERATOR 06/24/2016 8:30 AM LOG YARD DERRICK OPERATOR Narrative [facility] - 06/24/2016 2:20 PM LOG YARD DERRICK OPERATOR Antibodies to HCV not detected; does not exclude the possibility of exposure to HCV. Nguyễn Abbott MD SEND OUTS Final Result [facility] [address] [place] [address], [place] from Last 3 Months or Most Recently Relevant to Health Maintenance Additional Health Concerns Infection Onset Date 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 Do not delete or resolve the infection flag. 02/13/2019 02/13/2019 Insurance MEDICARE PART A HB ONLY [place] BLUE MR PB ONLY [place] BLUE HB ONLY MEDICARE PART B HB ONLY MALU RAMIREZ [id number] [facility] Advance Directives Documents on File Type Date Recorded Patient Parts Picker Expl anation POLST 06/04/2020 1:34 PM 10.16.20 * Full Code (Latest Code Status on File) Date Activated Date Inactivated Comments 05/23/2020 9:43 AM 05/29/2020 4:47 PM * Full Code Date Activated Date Inactivated Comments 03/06/2020 7:22 AM 03/06/2020 12:40 PM * Full Code Date Activated Date Inactivated Comments 02/08/2020 8:26 PM 02/12/2020 5:44 PM Question Answer Comments Code Status Discussion: Discussed * Full Code Date Activated Date Inactivated Comments 12/17/2009 12:48 PM 12/18/2009 5:24 PM * Full Code Date Activated Date Inactivated Comments 12/17/2009 11:15 AM 12/17/2009 12:48 PM Care Teams Volcanology Teacher Relationship Specialty Start Date End Date Bart Lara MD [address] [place] [address] PCP - General Family Practice 10/03/18 Prudence Kinney DO [address] [place] [address] Family Practice 12/08/22
--- OUTSIDE RECORDS SUMMARY | 2024-08-20 17:24 | XMS_ITS | Referral Summary ---
Author Organization [facility] Address [address] [place] [address] Care Team Providers Care Rope Making Machine Operator Name Role Phone Nguyễn Abbott Jay Primary Care Provider [phone] Allergies Active Allergy Reactions Criticality Noted Date Comments Erythromycin GI Disturbance 08/29/2015 Iodine 08/29/2015 Burning Cephalexin 08/29/2015 Yeast infections Latex 08/29/2015 skin breakdown Lisinopril Cough 12/07/2017 Morphine Itching 08/29/2015 Prednisone 08/29/2015 Swelling and bloating with mcfp use Sulfa Antibiotics Rash Low 08/29/2015 Medications Eckley-3 Fatty Acids (OMEGA-3 FISH OIL PO) Take [...] on file Legal Sex Female 4:38 AM BOAT OUTFITTER Gender Identity Not on file Sexual Orientation [...] CDT Plan of Treatment Not on file Procedures Procedure Name Priority Date/Time Associated Diagnosis Comments GLUCOSE BY METER Routine 09/04/2015 1:18 PM BOAT OUTFITTER from Last 3 Months or Most Recently Relevant to Health Maintenance Results * (ABNORMAL) Glucose by meter (09/04/2015 1:18 PM BOAT OUTFITTER) Glucose 110(H) 70 - 99 mg/dL POINT OF CARE TEST, GLUCOSE 09/04/2015 1:18 PM BOAT OUTFITTER 09/04/2015 1:20 PM BOAT OUTFITTER Ankit Randle MD LAB - BEAKER POCT Final Re sult POINT OF CARE TEST, GLUCOSE from Last 3 Months or Most Recently Relevant to Health Maintenance Insurance [employer] Care Teams Rope Making Machine Operator Relationship Specialty Start Date End Date Nguyễn Abbott PCP - General Family Practice 08/29/15
[2024-08-20 17:55] VITALS: BP 153/70; PULSE 71; RESP 18; TEMP 37; O2SAT 7; BMI 40.6
[2024-08-20 20:26] VITALS: BP 166/66; PULSE 71; RESP 20; TEMP 36.8; O2SAT 98
--- NOTE | 2024-08-20 21:00 | CRLHL7_ITS ---
For Patients: As a result of the Century Cures Act, medical imaging exams and procedure reports are released immediately into your electronic medical record. You may view this report before your referring provider. If you have questions, please contact your health care provider. Indication: Shortness of breath, CHF Technique: Two views of the chest Comparison: Chest radiograph performed 01/21/2020 Findings/Impression: Mild cardiomegaly and prominent interstitial markings, may represent mild volume overload. No focal consolidation or large effusion appreciated. Dictated by Jese Mccoy MD @ 08/20/2024 9:40:17 PM (Electronically Signed)
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
--- OUTSIDE RECORDS SUMMARY | 2024-08-20 21:22 | XMS_ITS | Clinical Summary ---
Author Organization [facility] [facility] Address [place], [place] [address] Care Team Providers Care Metal Fence Erector Name Role Phone Bart Lara MD Primary Care Provider [phone] Prudence Kinney DO Unavailable [phone] Allergies Active Allergy Reactions Criticality Noted Date [...] Edema,Flushing High 10/06/2005 Swelling and bloating with penitentiary use Other reaction(s): BLOATING Sulfa (Sulfonamide Antibiotics) [...] evaluation recommended unless absolute lymph count > 06944 or significant anemia or thrombocytopenia Grade II diastolic dysfunction 06/15/2020 Overview (06/15/2020): Echo 06/13/2020 Longstanding persistent atrial fibrillation 01/14 Pulmonary embolism 04/06/2019 Overview (02/08/2020): 2004 w/ admit to [facility] hospital - placed on a/c resulting in [...] [facility] [address] [place] [address] Bart Lara MD Leg Swelling 08/03/2024 2:40 PM DERRICK OPERATOR Ancillary Procedure [facility] [address] [place] [address] 08/03/2024 Travel 08/03/[address] [address] [place] [address] Bart Lara MD Error-please disregard 08/02/2024 Telephone [facility] [address] [place] [phone] Alban Perez MD Medication Management 07/26/2024 Telephone [facility] [address] [place] [address] Alban Perez MD Results 07/16/[address] [address] [place] [address] Bart Lara MD Refill Request (torsemide (DEMADEX) 20 mg tablet/) 07/16/[address] [address] [place] [address] Alban Perez MD Refill Request (Torsemide) 07/13/2024 Telephone [facility] [address] [place] [address] Alban Perez MD Results (NM stress test results.) 07/09/[address] [facility] [address] [place] [address] Bart Lara MD Prior Authorization (Eliquis 5 mg tablet *Tier Exception* DENIED ) 07/04/[address] [facility] [address] [place] [address] Bart Lara MD Medication Management 06/27/[address] [facility] [address] [place] [address] Bart Lara MD Refill Request (Chlorthalidone) 06/26/2024 8:30 AM DERRICK OPERATOR Ancillary Procedure [facility] [address] [place] [address] 06/22/2024 11:30 AM DERRICK OPERATOR Office Visit [facility] [address] [place] [address] Jeannette Galvez PA UTI 06/22/2024 Orders Only [address] [address] Carolina Chaetham RN <No scans attached> 06/22/2024 Orders Only [address] [address] Jeannette Galvez PA Lab 06/22/2024 Orders Only [address] [address] Jeannette Galvez PA Lab 06/22/2024 Travel 06/22/[address] [facility] [address] [place] [address] Bart Lara MD Urinary Problem 06/18/2024 1:00 PM DERRICK OPERATOR Orders Only [facility] [place] [address] [place] [address] [place] [address] 1 scan: (1-Ord) ECHO TTE COMPLETE WO CONTRAST ([id number]) 06/18/2024 10:27 AM DERRICK OPERATOR - 06/18/2024 11:59 PM DERRICK OPERATOR Hospital Encounter [address] [place] [address] Persistent atrial fibrillation (HC) 06/18/2024 9:30 AM DERRICK OPERATOR Office Visit [facility] [address] [facility] [address] [place] [phone] Alban Perez MD Follow Up (Annual F/U. Pt states feeling very SOB today. She has noticed an increase in episodes where she feels pounding/irregular heartbeat, lightheaded/dizzy, and felt like she really wanted to burp but couldn't. No current cardiac symptoms) 06/18/2024 Orders Only [address] [place] [address] [place] [address] Alban Perez MD 1 scan: (1-Ord) [facility] 06/18/2024 Travel from Last 3 Months [...] drink = 0.6 oz pur e alcohol) [facility] Utilities Answer Date Recorded Do you have [...] on file Legal Sex Female 5:24 AM DERRICK OPERATOR Gender Identity Not on file [...] Comments Blood Pressure 154/77 06/22/2024 11:36 AM DERRICK OPERATOR Pulse 77 06/22/2024 11:36 AM DERRICK OPERATOR Temperature 36.6 C (97.8 F) 06/22/2024 11:36 AM DERRICK OPERATOR Respiratory Rate 20 05/28/2023 10:3 3 AM CDT Oxygen Saturation 95% 06/22/2024 11: 36 AM DERRICK OPERATOR Inhaled Oxygen Concentration - - Weight 153.1 kg (337 lb 9.6 oz) 024 11:36 AM DERRICK OPERATOR Height 165.1 cm (5' 5) 06/18/2024 9:48 AM DERRICK OPERATOR Body Mass Index 56.18 06/18/2024 9:48 AM DERRICK OPERATOR Plan of Treatment Upcoming Encounters Date Type Department Care Team (Late st Contact Info) Description 08/21/2024 8:00 AM DERRICK OPERATOR Office [facility] [address] [place] [address] Bart Lara MD [address] [place] [address] 08/22/2024 11:00 AM DERRICK OPERATOR Office [facility] [address] [place] [address] Lg Bassett MD [address] [place] [address] 09/06/2024 11:30 AM DERRICK OPERATOR Office [facility] [address] [place] [address] Bart Lara MD [address] [place] [address] 07/01/2025 11:00 AM DERRICK OPERATOR Office Visit [facility] [place] [address] [facility] [address] [place] [address] Alban Perez MD [address] [facility] [address] [place] [address] Health Maintenance Due Date Last Done Comments [...] history exists Medical Devices Implanted Type Area Firefighter Device Identifier Shelf Expiration Date Model / Serial / Lot Repair Elevate Post - [id number] Implanted:Qty: 1 on 12/17/2009 at [facility] N/A: Pelvis [place] [employer] 05/29/2012 [id number] # / [id number] / Description:please see impla nt sheet. Mesh Ventral [id number] Ventralight St W/Echo2 - [id number] Implanted:Qty: 1 on 05/23/2020 by Levi Renae MD at [facility] Right: Abdomen [employer] 01/09/2021 [id number] / / [id number] Mesh Ventral 15cm Ventralight St W/Echo2 - [id number] Implanted:Qty: 1 on 05/23/2020 by Levi Renae MD at [facility] [employer] 01/09/2021 [id number] / / [id number] Procedures Procedure Name Priority Date/Time Associated Diagnosis Comments XR MAMMO JUDD BILAT SCREEN Routine 08/03/2024 3:01 PM DERRICK OPERATOR Visit for screening mammogram SCAN-EVENT MONITOR 07/10/2024 12 :00 AM DERRICK OPERATOR NM CARDIAC MPI STRESS TEST ANABEL 06/26/2024 1:24 PM DERRICK OPERATOR Persistent atrial fibrillation (HC) Bilateral lower extremity edema Chronic diastolic (congestive) heart failure (HC) CARLOS 01/02/2015 AHI-11, REM-35 Morbid obesity with BMI of 50.0-59.9, adult (HC) Essential hypertension HEMOGLOBIN A1C MONITORING (POCT) Routine 06/22/2024 12:16 PM DERRICK OPERATOR Prediabetes GLUCOSE, FASTING Routine 06/22/2024 11:5 5 AM DERRICK OPERATOR Prediabetes URINE CULTURE Routine 06/22/2024 11:51 AM DERRICK OPERATOR Lower urinary tract symptoms (LUTS) URINALYSIS MICROSCOPIC Routine 06/22/2024 11:51 AM DERRICK OPERATOR Lower urinary tract symptoms (LUTS) URINALYSIS MACROSCOPIC - [facility] ONLY POC DIP ([facility]) Routine 06/22/2024 11:50 AM DERRICK OPERATOR Lower urinary tract symptoms (LUTS) ECHO TTE COMPLETE WO CONTRAST ANABEL 06/18/2024 1:33 PM DERRICK OPERATOR Persistent atrial fibrillation (HC) CREATININE Today 06/18/2024 10:50 AM DERRICK OPERATOR Persistent atrial fibrillation (HC) BUN Today 06/18/2024 10:50 AM DERRICK OPERATOR Persistent atrial fibrillation (HC) ALT (SGPT) Today 06/18/2024 10:50 AM DERRICK OPERATOR Persistent atrial fibrillation (HC) AST (SGOT) Today 06/18/2024 10:50 AM DERRICK OPERATOR Persistent atrial fibrillation (HC) EKG 12 LEAD Routine 06/18/2024 9:36 AM DERRICK OPERATOR Persistent atrial fibrillation (HC) EXTENDED HOLTER Routine 06/18/2024 Persistent atrial fibrillation (HC) LIPID PANEL Add On 08/29/2023 2:34 PM DERRICK OPERATOR Hypertension XR DXA BONE DENSITY 2 SITES AXIAL Routine 07/24/2019 10:00 AM DERRICK OPERATOR Asymptomatic menopausal state ANTI HCV Routine 06/24/2016 8:30 AM DERRICK OPERATOR Need for hepatitis C screening test from Last 3 Months or Most Recently Relevant to Health Maintenance Results * XR MAMMO JUDD BILAT SCREEN (08/03/2024 3:01 PM DERRICK OPERATOR) Anatomical Region Laterality Modality BREASTS, Breast Left, Breast Right Bilateral Mammography Impressions 08/03/2024 3:54 PM DERRICK OPERATOR There is no radiographic evidence for malignancy. Recommend annual mammograms. MAMMOGRAM ASSESSMENT: ACR 1 Negative PATIENTS: You will also receive a letter with your examination results in an easy to read format. If you have questions about your results, please contact your referring provider. Narrative 08/03/2024 3:54 PM DERRICK OPERATOR For Patients: As a result of the Century Cures Act, medical imaging exams and procedure reports are released immediately into your electronic medical record. You may view this report before your referring provider. If you have questions, please contact your health care provider. XR MAMMO JUDD BILAT SCREEN [[id number]] CLINICAL HISTORY: This is an asymptomatic 69 y.o. patient. INDICATION FOR EXAM: Mammogram Screening. TECHNIQUE: CC & MLO views were obtained. This study was evaluated with the assistance of Computer-Aided Detection. Breast Tomosynthesis was used in interpretation. COMPARISON FILM: Yes 07/26/23 [facility] 04/28/22 [employer] FINDINGS: There are scattered areas of fibroglandular density. There are no dominant masses, suspicious micro calcifications or areas of architectural distortion. us Bart Lara MD MAMMO Final Resu lt * SCAN-EVENT MONITOR (07/10/2024 12:00 AM DERRICK OPERATOR) us Scanner OTHER Final Result * NM CARDIAC MPI STRESS TEST (06/26/2024 1:24 PM DERRICK OPERATOR) Anatomical Region Laterality Modality HEART Ultrasound 06/21/2024 8:39 AM DERRICK OPERATOR Narrative 07/11/2024 9:23 AM DERRICK OPERATOR Toll -free: [phone] [email or web address] MYOCARDIAL PERFUSION IMAGING REPORT REST/STRESS SINGLE ISOTOPE GATED SPECT IMAGING. Patient Name: COCO VANCE Gender: F Height: 65 in Weight: 332 lb Study Date: 06/21/2024 8:39:31 AM BSA: 2.45 m : 1955 69 years BMI: 55.25 kg/m Ord. Prov.: ALBAN PEREZ Monitoring Prov.: Dalton Aviles [facility] Clinical History: Chest [...] Doroteo Lee MD - 07/11/2024 Toll -free: [phone] [email or web address] MYOCARDIAL PERFUSION IMAGING REPORT REST/STRESS SINGLE ISOTOPE GATED SPECT IMAGING. Patient Name: COCO VANCE Gender: F Height: 65 in Weight: 332 lb Study Date: 06/21/2024 8:39:31 AM BSA: 2.45m : 1955 69 years BMI: 55.25kg/m Ord. Prov.: ALBAN YEAGER PEREZ Monitoring Prov.: Dalton Aviles [facility] Clinical History: Chest [...] was 147 mmHg/73 mmHg; peak blood pressure mnz462 mmHg/58 mmHg. - The patient developed symptoms [...] 3:47:06 PM. Final (Updated) Alban Perez MD [place] Result - Final * (ABNORMAL) HEMOGLOBIN A1C MONITORING POCT (06/22/2024 12:16 PM DERRICK OPERATOR) POC HEMOGLOBIN A1C 6.0(H) <6.0 % OF TOTAL HGB [facility] Comment: Any point of care results exhibiting inconsistency with the patient's clinical status should be repeated using a different testing method. Blood BLOOD SPECIMEN / Unknown 06/22/2024 12:16 PM DERRICK OPERATOR 06/22/2024 12:17 PM DERRICK OPERATOR Jeannette MOSQUEDA CHEMISTRY Final Result [facility] [address] [place] [address], [facility] [address] [place] [address] * (ABNORMAL) GLUCOSE, FASTING (06/22/2024 11:55 AM DERRICK OPERATOR) GLUCOSE 105(H) 65 - 99 mg/dL [facility] Comment: Fasting reference interval For someone without known diabetes, a glucose value between 100 and 125 mg/dL is consistent with prediabetes and should be confirmed with a follow-up test. Blood BLOOD SPECIMEN / Unknown 06/22/2024 11:55 AM DERRICK OPERATOR 06/22/2024 11:57 AM DERRICK OPERATOR Narrative [facility] - 06/23/2024 5:46 AM DERRICK OPERATOR SPLIT 06/22/2024 FROM [id number] us Jeannette MOSQUEDA CHEMISTRY Final Result [facility] [address] [place] [address], [facility] [address] [place] [address] * (ABNORMAL) URINALYSIS MICROSCOPIC (06/22/2024 11:51 AM DERRICK OPERATOR) WBC UA 20-40(A) < OR [...] URINE SPECIMEN / Unknown 06/22/2024 11:51 AM DERRICK OPERATOR 06/22/2024 11:52 AM DERRICK OPERATOR Narrative [facility] - 06/23/2024 3:40 AM DERRICK OPERATOR COLLECTION KIT GIVEN TO PATIENT. PATIENT ADVISED TO RETURN. us Jeannette MOSQUEDA URINE Final Result [facility] [address] [place] [address], [facility] [address] [place] [address] * (ABNORMAL) URINE CULTURE (06/22/2024 11:51 AM DERRICK OPERATOR) Pathologist [facility] CULTURE, URINE, ROUTINE SEE NOTE(A) [employer] [facility] Comment: CULTURE, URINE, ROUTINE Micro Number: [id number] Test Status: Final Specimen Source: Urine Specimen [...] URINE SPECIMEN / Unknown 06/22/2024 11:51 AM DERRICK OPERATOR 06/22/2024 11:52 AM DERRICK OPERATOR Narrative [facility] - 06/25/2024 4:35 AM DERRICK OPERATOR COLLECTION KIT GIVEN TO PATIENT. PATIENT ADVISED TO RETURN. us Jeannette MOSQUEDA MICROBIOLOGY Final Result Performing Organization Address [facility] Co de Phone Number [facility] [address] [place] [address], [place] [phone] [facility] [address] [place] [address] * (ABNORMAL) POCT Urinalysis Dipstick Only (06/22/2024 11:50 AM DERRICK OPERATOR) Pathologist [facility] PH 7.0 5.0 - 8.0 [facility] SPECIFIC GRAVITY 1.015 1.001 - 1.035 [facility] GLUCOSE NEGATIVE NEGATIVE [facility] BILIRUBIN NEGATIVE NEGATIVE [facility] KETONES NEGATIVE NEGATIVE [facility] OCCULT BLOOD NEGATIVE NEGATIVE [facility] PROTEIN NEGATIVE NEGATIVE [facility] NITRITE POSITIVE(A) NEGATIVE [facility] LEUKOCYTE ESTERASE 1+(A) NEGATIVE [facility] Urine URINE SPECIMEN / Unknown 06/22/2024 11:50 AM DERRICK OPERATOR 06/22/2024 11:50 AM DERRICK OPERATOR us Jeannetet MOSQUEDA URINE Final Result Performing Organization Address [facility] Co de Phone Number [facility] [address] [place] [address], [facility] [address] [place] [address] * ECHO TTE COMPLETE WO CONTRAST (06/18/2024 1:33 PM DERRICK OPERATOR) AORTIC VALVE MEAN PG 15 mmHg EJECTION FRACTION 78 % LVEDD 5.3 cm EJECTION FRACTION 70 - 75% Anatomical Region Laterality Modality Ultrasound 06/18/2024 1:56 PM DERRICK OPERATOR Narrative 06/18/2024 3:52 PM DERRICK OPERATOR ECHOCARDIOGRAM COCO VANCE : 1955 69 years Study Date: 06/18/2024 1:56:22 PM Gender: F BP: 0/0 mmHg Height: 165.00 cm BSA: 2.47 m Weight: 153.00 kg Tech: B Referring MD: ALBAN PEREZ Site: [facility] [place] Reading Location: [facility] Patient Location: Procedure: 2D, Color Doppler and [...] . This study was interpreted by an [facility] accredited facility. Final Procedure Note Espinoza Rothman MD - 06/18/2024 ECHOCARDIOGRAM COCO VANCE : 1955 69 years Study Date: 06/18/2024 1:56:22 PM Gender: F BP: 0/0 mmHg Height: 165.00 cm BSA: 2.47 m Weight: 153.00 kg Tech: RMB Referring MD: ALBAN PEREZ Site: [facility] [place] Reading Location: [facility] Patient Location: Procedure: 2D, Color Doppler and [...] Result * (ABNORMAL) BUN (06/18/2024 10:50 AM DERRICK OPERATOR) BUN 35(H) 8 - 23 mg/dL 06/18/2024 11:13 AM DERRICK OPERATOR [facility] Blood BLOOD SPECIMEN / Unknown Venipuncture / Unknown 06/18/2024 10:50 AM DERRICK OPERATOR 06/18/2024 10:50 AM DERRICK OPERATOR Alban Perez MD CHEMISTRY Fin al Result [facility] [address] [place] [address] * (ABNORMAL) CREATININE (06/18/2024 10:50 AM DERRICK OPERATOR) eGFR 39(L) >90 mL/min/1.7 3m2 06/18/2024 11:13 AM DERRICK OPERATOR [facility] Comment:As of 2021, eG FR is calculated by the CKD-EPI creatinine equation without race adjustment. eGFR can be influenced by muscle mass, exercise, and diet. The reported eGFR is an estimation only and is only applicable if the renal function is stable. CREATININE 1.46(H) 0.50 - 0.90 mg/dL 06/18/2024 11:13 AM DERRICK OPERATOR [facility] Blood BLOOD SPECIMEN / Unknown Venipuncture / Unknown 06/18/2024 10:50 AM DERRICK OPERATOR 06/18/2024 10:50 AM DERRICK OPERATOR us Alban Perez MD CHEMISTRY Fin al Result Performing Organization Address City/[facility] [place] [address] * (ABNORMAL) ALT (SGPT) (06/18/2024 10:50 AM DERRICK OPERATOR) ALT (SGPT) 8(L) 10 - 35 IU/L 06/18/2024 11:13 AM DERRICK OPERATOR [facility] Blood BLOOD SPECIMEN / Unknown Venipuncture / Unknown 06/18/2024 10:50 AM DERRICK OPERATOR 06/18/2024 10:50 AM DERRICK OPERATOR us Alban Perez MD CHEMISTRY Fin al Result Performing Organization Address City/[facility]/[place] [address] * AST (SGOT) (06/18/2024 10:50 AM DERRICK OPERATOR) AST (SGOT) 16 10 - 35 IU/L 06/18/2024 11:13 AM DERRICK OPERATOR [facility] Blood BLOOD SPECIMEN / Unknown Venipuncture / Unknown 06/18/2024 10:50 AM DERRICK OPERATOR 06/18/2024 10:50 AM DERRICK OPERATOR us Alban Perez MD CHEMISTRY Fin al Result [facility] [address] [place] [address] * EKG 12 LEAD (06/18/2024 9:36 AM DERRICK OPERATOR) Interpretation sinus rhythm Low voltage QRS QTcB >= 480 msec Abnormal ECG When compared with ECG of 14-Dec-2022 15:56, Junctional rhythm has replaced Sinus rhythm Ventricular Rate 70 BPM Atrial Rate BPM P-R Interval 240 ms QRS Duration 102 ms QT 450 ms QTc 486 ms [address] [employer] degrees R [employer] 88 degrees T [employer] 62 degrees 06/18/2024 9:36 AM DERRICK OPERATOR 06/23/2024 9:05 PM DERRICK OPERATOR Alban Perez MD EKG ORD Fin al Result * ZIO PATCH XT - weekly to monthly symptoms. (06/18/2024) 06/18/2024 Narrative Kenan Hernandez MD - 07/17/2024 12:00 AM DERRICK OPERATOR NSR with Atrial fib 2% [...] * (ABNORMAL) LIPID PANEL (08/29/2023 2:34 PM DERRICK OPERATOR) CHOLESTEROL,TOTAL 155 100 - 199 mg/dL 08/29/2023 11:33 PM DERRICK OPERATOR [facility] Comment: Cholesterol, Total Reference Ranges Desirable <200 mg/dL Borderline 200-239 mg/dL High >=240 mg/dL TRIGLYCERIDES 206(H) <150 mg/dL 08/29/2023 11:33 PM DERRICK OPERATOR [facility] HDL CHOLESTEROL 57 >40 mg/dL 11:33 PM DERRICK OPERATOR [facility] NON-HDL CHOLESTEROL 98 <145 mg/dl 08/29/2023 11:33 PM DERRICK OPERATOR [facility] CHOL/HDL RATIO 2.72 <4.50 08/29/2023 11:33 PM DERRICK OPERATOR [facility] LDL CHOLESTEROL 57 <=130 mg/dL 08/29/2023 11:33 PM DERRICK OPERATOR [facility] VLDL CHOLESTEROL 41(H) <=30 mg/dL 08/29/2023 11:33 PM DERRICK OPERATOR [facility] Blood BLOOD SPECIMEN / Unknown Venipuncture / Unknown 08/29/2023 2:34 PM DERRICK OPERATOR 08/29/2023 2:35 PM DERRICK OPERATOR Bart Lara MD CHEMISTRY Final Resu lt [facility] [address] [address], * (ABNORMAL) XR DXA BONE DENSITY 2 SITES AXIAL (07/24/2019 10:00 AM DERRICK OPERATOR) Anatomical Region Laterality Modality Spine, HIPS, HIPL, HIPR Other Narrative 07/27/2019 9:25 AM DERRICK OPERATOR Please see scanned document for results of this study. Bart Lara MD DEXA Final Resu lt * ANTI HCV (06/24/2016 8:30 AM DERRICK OPERATOR) HEPATITIS C ANTIBODY Non-Reacti ve Non-Reacti ve 06/24/2016 2:20 PM DERRICK OPERATOR [facility] Blood BLOOD SPECIMEN / Unknown Venipuncture / Unknown 06/24/2016 8:30 AM DERRICK OPERATOR 06/24/2016 8:30 AM DERRICK OPERATOR Narrative [facility] - 06/24/2016 2:20 PM DERRICK OPERATOR Antibodies to HCV not detected; does not exclude the possibility of exposure to HCV. Nguyễn Abbott MD SEND OUTS Final Result [facility] [address] [place] [address], [place] from Last 3 Months or Most Recently Relevant to Health Maintenance Additional Health Concerns Infection Onset Date 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 Do not delete or resolve the infection flag. 02/13/2019 02/13/2019 Insurance MEDICARE PART A HB ONLY [employer] [place] [place] BLUE MR PB ONLY [place] [place] BLUE HB ONLY MEDICARE PART B HB ONLY [place] [id number] [facility] Advance Directives Documents on File Type Date Recorded Patient Construction Flagger Expl anation POLST 06/04/2020 1:34 PM 10.16.20 [...] 11:15 AM 12/17/2009 12:48 PM Care Teams Metal Fence Erector Relationship Specialty Start Date End Date Bart Lara MD [address] [place] [address] PCP - General Family Practice 10/03/18 Prudence Kinney DO [address] [place] [address] Family Practice 12/08/22
--- OUTSIDE RECORDS SUMMARY | 2024-08-20 21:22 | XMS_ITS | Clinical Summary ---
Author Organization [employer] Address [address] [place] [address] [address] [place] [address] Care Team Providers Care Magnet Maker Name Role Phone Provider, No Attributed RESOURCE [...] in Comments) 10/06/2005 Swelling and bloating with prison use Swelling and bloating with prison use Sulfa Drugs Rash Low 10/06/2005 Medications [...] night at bedtime 9 Active [employer] (BNJDFD-G-HKFK R LOCKING BRACKET) MISC CPAP, heated humidifier,nasal pillows,chin strap if needed, filters and tubing. For home use. Pressure auto 5-15 Length of Need:99 4 Active [employer] (IHIJDU-L-VEEI R LOCKING BRACKET) MISC 20-30 mm/Hg calf [...] Problem Noted Date Diagnosed Date Celiac disease ([facility]) 04/06/2019 Esophageal reflux 04/06/2019 Overview (04/06/2019): EGD [...] 04/06/2019 Overview (04/06/2019): 2003 w/ admit to [facility] - placed on a/c resulting in [...] age to complete this topic Care Teams Magnet Maker Relationship Specialty Start Date End Date Provider, No Attributed, RESOURCE [address] PCP - Attributed Provider 07/09/21
--- OUTSIDE RECORDS SUMMARY | 2024-08-20 21:22 | XMS_ITS | Clinical Summary ---
Author Organization [facility] Address [address] [place] [id number] Care Team Providers Care Corporate Trainer Name Role Phone Nguyễn Abbott Jay Primary Care Provider [phone] Allergies Active Allergy Reactions Criticality Noted Date Comments Erythromycin GI Disturbance 08/29/2015 Iodine 08/29/2015 Burning Cephalexin 08/29/2015 Yeast infections Latex 08/29/2015 skin breakdown Lisinopril Cough 12/07/2017 Morphine Itching 08/29/2015 Prednisone 08/29/2015 Swelling and bloating with [place] [facility] use Sulfa Antibiotics Rash Low 08/29/2015 Medications [place]-3 Fatty Acids (OMEGA-3 FISH OIL PO) Take [...] on file Legal Sex Female 4:38 AM CUSTOMER SERVICE MANAGER Gender Identity Not on file Sexual Orientation [...] - Td or Tdap) 05/10/2023 05/10/2013, 05/12/2005 COVID-19 Vaccine ( - season) 2024 06/11/2021, 11/06/2020, 10/09/2020 INFLUENZA VACCINE (#1) 2024 , 06/10/2022, 04/24/2021, Additional history exists PHQ-2 (once per calendar year) 2024 MAMMO SCREENING 07/26/2025 07/26/2023, 07/15, 04/28/2022, Additional [...] GLUCOSE BY METER Routine 09/04/2015 1:18 PM CUSTOMER SERVICE MANAGER from Last 3 Months or Most Recently Relevant to Health Maintenance Results * (ABNORMAL) Glucose by meter (09/04/2015 1:18 PM CUSTOMER SERVICE MANAGER) Glucose 110(H) 70 - 99 mg/dL POINT OF CARE TEST, GLUCOSE 09/04/2015 1:18 PM CUSTOMER SERVICE MANAGER 09/04/2015 1:20 PM CUSTOMER SERVICE MANAGER Ankit Randle MD [facility] POCT Final Re sult POINT OF CARE TEST, GLUCOSE from Last 3 Months or Most Recently Relevant to Health Maintenance Insurance [facility] Care Teams Corporate Trainer Relationship Specialty Start Date End Date Nguyễn Abbott PCP - General Family Practice 08/29/15
--- OUTSIDE RECORDS SUMMARY | 2024-08-20 21:22 | XMS_ITS | Referral Summary ---
Author Organization [facility] Address [address] [place] [id number] Care Team Providers Care Straightening Press Operator Helper Name Role Phone Nguyễn Abbott Jay Primary Care Provider [phone] Allergies Active Allergy Reactions Criticality Noted Date Comments Erythromycin GI Disturbance 08/29/2015 Iodine 08/29/2015 Burning Cephalexin 08/29/2015 Yeast infections Latex 08/29/2015 skin breakdown Lisinopril Cough 12/07/2017 Morphine Itching 08/29/2015 Prednisone 08/29/2015 Swelling and bloating with alf use Sulfa Antibiotics Rash Low 08/29/2015 Medications [place]-3 Fatty Acids (OMEGA-3 FISH OIL PO) Take [...] on file Legal Sex Female 4:38 AM LAND CLEARER Gender Identity Not on file Sexual Orientation [...] GLUCOSE BY METER Routine 09/04/2015 1:18 PM LAND CLEARER from Last 3 Months or Most Recently Relevant to Health Maintenance Results * (ABNORMAL) Glucose by meter (09/04/2015 1:18 PM LAND CLEARER) Glucose 110(H) 70 - 99 mg/dL POINT OF CARE TEST, GLUCOSE 09/04/2015 1:18 PM LAND CLEARER 09/04/2015 1:20 PM LAND CLEARER Ankit Randle MD [facility] POCT Final Re sult POINT OF CARE TEST, GLUCOSE from Last 3 Months or Most Recently Relevant to Health Maintenance Insurance [employer] Care Teams Straightening Press Operator Helper Relationship Specialty Start Date End Date Nguyễn Abbott PCP - General Family Practice 08/29/15
[2024-08-20 21:42] LABS: Chloride* 107 mmol/L (96-114); Potassium* 4.2 mmol/L (3.6-5.1); Sodium* 139 mmol/L (135-149)
[2024-08-20 21:45] LABS: Anion Gap 4 mEq/L (7-15); Blood Urea Nitrogen* 21 mg/dL (7-30); Carbon Dioxide* 28 mmol/L (20-32); Creatinine* 0.9 mg/dL (0.5-1.5); Estimated Glomerular Filt Rate 69 ml/min; Glucose* 113 mg/dL (60-115)
[2024-08-20 21:46] LABS: Basophils Percent Auto 0.4 % (0.0-3.0); Calcium* 10.1 mg/dL (8.4-10.6); Eosinophils Percent Auto 2.5 % (0.0-7.0); Hematocrit 32.6 % (33.0-51.0); Hemoglobin* 10.2 gm/dL (12.0-16.0); Immature Granulocytes Pct Auto 0.3 %; Lymphocytes Percent Auto 37.4 % (20-44); Mean Corpuscular HGB Conc 31 gm/dL (32-36); Mean Corpuscular Hemoglobin 31 pg (26-34); Mean Corpuscular Volume 98 fL (80-100); Monocytes Percent Auto 8.2 % (0.0-11.0); Neutrophils Percent Auto 51.2 % (42.0-72.0); Platelet Count* 300 K/uL (140-440); RDW Coefficient of Variation % 13.3 % (11.5-15.5); Red Blood Count 3.34 m/uL (4.00-5.20); White Blood Count* 13.84 K/uL (4.50-11.00)
[2024-08-20 22:04] LABS: PCR FLU A Negative PCR FLU A (Negative); PCR FLU B Negative PCR FLU B (Negative); PCR RSV Negative PCR RSV (Negative); SARS PCR* Negative SARS-CoV-2 (Negative)
[2024-08-20 22:11] LABS: Slide Review Reflex Yes
[2024-08-20 22:29] LABS: NT Pro B Type NatriureticPept* 218 pg/mL
[2024-08-20 22:39] LABS: Troponin I* < 0.01 ng/mL (0.01-0.04)
[2024-08-20 22:46] LABS: Slide Review Acceptable Review (Acceptable)
[2024-08-20 23:05] VITALS: BP 166/73; PULSE 72; RESP 20; O2SAT 98
== END 2024-08-20 23:37 | disposition home or self-care (01) ==
PROVIDERS: Emergency Provider Student in an Organized Health Care Education/Training Program; PCP Surgery
DX: R06.02 Shortness of breath (principal)
CPT/HCPCS: 36415; 71046; 80048; 83880; 84484; 85025; 87631; 93005; 99284; 99285

== ENCOUNTER 2025-03-26 12:49 | Outpatient (CLI) | payer MEDICARE, BC, SELFPAY | END 2025-03-26 12:50 | disposition home or self-care (01) | PROVIDERS: PCP Surgery; Visit Provider Nurse Practitioner Family | DX: I89.0 Lymphedema, not elsewhere classified (principal) | CPT/HCPCS: G0463 ==

== ENCOUNTER 2025-05-10 09:25 | Outpatient (CLI) | payer MEDICARE, BC, SELFPAY ==
--- NOTE | 2025-05-10 09:56 | P.ANES_ITS ---
Anesthesia Charges Start Date/Time Anesthesia Start Date: 05/10/25 Anesthesia Start Time: 10:05 Stop Date/Time Anesthesia Stop Date: 05/10/25 Anesthesia Stop Time: 10:42 Summary Extremes of Age - Over 70 or under 1: LOAN ADMINISTRATOR Coding CPT Codes CPT Codes: ANES UPR LWR GI NDSC PX - 88750 ([id number]) P3 - PATIENT W/SEVERE SYS DISEASE, QK - RETAIL GROCER 2-4 CNCRNT ANES PROC, QX - LOAN ADMINISTRATOR SVC W/ MD MED DIRECTION Additional Codes: Summary - Extremes of Age - Over 70 or under 1: LOAN ADMINISTRATOR ([id number])
--- NOTE | 2025-05-10 09:56 | W.ANESCHARGE ---
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
--- NOTE | 2025-05-10 10:06 | P.ANES_ITS ---
Anesthesia Charges Start Date/Time Anesthesia Start Date: 05/10/25 Anesthesia Start Time: 10:05 Stop Date/Time Anesthesia Stop Date: 05/10/25 Anesthesia Stop Time: 10:42 Summary Extremes of Age - Over 70 or under 1: MDA Coding CPT Codes CPT Codes: ANES UPR LWR GI NDSC PX - 61217 ([id number]) P3 - PATIENT W/SEVERE SYS DISEASE, QK - BRAND COORDINATOR 2-4 CNCRNT ANES PROC, QX - HOUSE SERVANT SVC W/ MD MED DIRECTION Additional Codes: Summary - Extremes of Age - Over 70 or under 1: MDA ([id number])
--- NOTE | 2025-05-10 10:06 | W.ANESCHARGE ---
Anesthesia Charges Start Date/Time Anesthesia Start Date: 05/10/25 Anesthesia Start Time: 10:05 Stop Date/Time Anesthesia Stop Date: 05/10/25 Anesthesia Stop Time: 10:42 Summary Extremes of Age - Over 70 or under 1: MDA Coding CPT Codes CPT Codes: ANES UPR LWR GI NDSC PX - 65867 ([id number]) P3 - PATIENT W/SEVERE SYS DISEASE, QK - ACCREDITATION SPECIALIST 2-4 CNCRNT ANES PROC, QX - DATA INTEGRATION ANALYST SVC W/ MD MED DIRECTION Additional Codes: Summary - Extremes of Age - Over 70 or under 1: MDA ([id number])
== END 2025-05-10 09:26 | disposition home or self-care (01) ==
LOC: OP CLINIC 09:26
PROVIDERS: PCP Surgery; Visit Provider Internal Medicine Gastroenterology
DX: D50.9 Iron deficiency anemia, unspecified (principal); K57.30 Diverticulosis of large intestine without perforation or abscess without bleeding
CPT/HCPCS: 00813; 43239; 45378; 88305; 99100; J2704; J3490